=== PATIENT | female | born 1990 | race Two or more races ===

== ENCOUNTER 2024-11-22 10:34 | Outpatient (RCR) | payer MEDICAID, SELFPAY ==
--- NOTE | 2024-11-15 10:57 | XR_ITS ---
Examination: Biophysical profile, ultrasound Date and time of exam: November 15, 2024 11:00 AM Indications: Diagnosis elevated BMI, maternal obesity Technique: Multiple transabdominal sonographic images of the pelvis abdomen obtained. Attention is directed to the breathing movement, gross body movement, amniotic fluid volume and tone. Findings: Amniotic fluid index 6.8 cm Total biophysical profile is 8 of 8. breathing movement is 2. Gross body movement is 2. tone is 2. Qualitative amniotic fluid volume is 2 Impression: Biophysical profile is 8 of 8.
[2024-11-15 11:25] VITALS: BP 116/68; PULSE 81; RESP 18; TEMP 36.8
--- NOTE | 2024-11-22 10:39 | XR_ITS ---
Examination: Biophysical profile, ultrasound Date and time of exam: November 22, 2024 1107 hours INDICATIONS: Diagnosis maternal obesity Technique: Multiple transabdominal sonographic images of the pelvis abdomen obtained. Attention is directed to the breathing movement, gross body movement, amniotic fluid volume and tone. Findings: Amniotic fluid index 11.2 cm Total biophysical profile is 8 of 8. breathing movement is 2. Gross body movement is 2. tone is 2. Qualitative amniotic fluid volume is 2 Impression: Biophysical profile is 8 of 8.
[2024-11-22 11:28] VITALS: BP 116/70; PULSE 80; RESP 16; TEMP 36.7
== END 2024-11-22 23:59 | disposition home or self-care (01) ==
LOC: S4S1 10:34
PROVIDERS: PCP Family Medicine; Referring Provider Advanced Practice Midwife; Visit Provider Advanced Practice Midwife
DX: O99.213 Obesity complicating pregnancy, third trimester (principal); E66.9 Obesity, unspecified; Z3A.38 38 weeks gestation of pregnancy
CPT/HCPCS: 59025; 76819

== ENCOUNTER 2024-11-25 08:48 | Inpatient (IN) | payer MEDICAID, SELFPAY ==
[2024-11-25] VITALS (64 sets, daily range): BP systolic 94–126; BP diastolic 55–83; PULSE 77–106; RESP 18; TEMP 36.8; O2SAT 96–100; BMI 47.0
[2024-11-25 09:36] LABS: Basophils # (Auto) 0.1 Thou/mm3 (0.0-0.2); Basophils % (Auto) 1 % (0-2.5); Eosinophils # (Auto) 0.1 Thou/mm3 (0.0-0.5); Eosinophils % (Auto) 1 % (0-10); Hemoglobin 12.1 g/dL (12.0-16.0); Immature Granulocytes % (Auto) 1 % (0-0); Immature Granulocytes Auto 0.12 Thou/mm3 (0.00-0.00); Lymphocytes # (Auto) 1.3 Thou/mm3 (1.0-4.8); Lymphocytes % (Auto) 13 % (10-50); Mean Corpuscular HGB Conc 34.6 g/dl (31.0-37.0); Mean Corpuscular Hemoglobin 30.9 pg (25.0-35.0); Mean Corpuscular Volume 90 fL (80-100); Monocytes # (Auto) 0.6 Thou/mm3 (0.0-0.8); Monocytes % (Auto) 6 % (0-12); Neutrophils # (Auto) 7.6 Thou/mm3 (1.8-7.7); Neutrophils % (Auto) 78 % (37-80); Nucleated Red Blood Cell % 0 /100 WBC (0); Platelet Count 223 Thou/mm3 (140-440); RDW Standard Deviation 43.1 fL (36.4-46.3); Red Blood Count 3.91 Miln/mm3 (4.00-5.20); White Blood Count 9.8 Thou/mm3 (3.6-11.0)
--- NOTE | 2024-11-25 09:48 | ESHP_ITS ---
Documentation for date of: 11/25/24 OB Labor/Induct. HPI History of Present Illness Chief complaint: Patient presents for scheduled elective induction of labor for BMI of 46. : 2 Para: 1 Term pregnancies: 1 pregnancies: 0 Living children: 0 History of Abortions: Spontaneous and Elective: 0 History of Vaginal deliveries: 1 History of sections: No History of : No SCOOTER: 11/30/24 Gestational Age (weeks): 39 Gestational Age (days): 2 Indication for induction: other (Maternal morbid obesity with a BMI of 46) History of present illness: Patient is a very pleasant 34-year-old -0-0-1 all care with Heidy Quintero CNM present for scheduled induction of labor secondary to morbid obesity. Patient's last delivery was in 2019. She delivered vaginally. Baby weighed 7 pounds 10 ounces. She feels this baby is a little bigger. No gestational diabetes. History of Present Dating criteria: LMP confirmed by 1st trimester US Adequate Care: Yes Ultrasounds: normal mid trimester US Medical complications: other (Maternal morbid obesity history of fall with chronic back pain) Labs Maternal Blood Type: AB Pos Labs: Positive: Group Beta Strep and Negative: RPR, Hepatitis B, Rubella Titre, HIV, Chlamydia and Gonorrhea Review of Systems Constitutional Constitutional: Reports system reviewed and no additional complaints, except as documented Comments: movement no regular contractions no loss of fluid no vaginal bleeding. Patient has chronic back pain and she states her feet swell especially after her last baby. Past Medical History Past Medical History GASTROINTESTINAL: Positive Obesity (BMI of 46) MUSCULOSKELETAL: Positive Musculoskeletal Disorders (Chronic back pain after a fall) Surgical History SURGICAL: Negative Section Meds Home Medications and Allergies Home Medications ?Medication ?Instructions ?Recorded ?Confirmed ?Type vits no.130-ferrous fum 1 tab PO QDAY 5 11/25/24 History 27 mg iron-folic acid 800 mcg tablet ( Vitamin) Allergies Allergy/AdvReac Type Severity Reaction Status Date / Time No Known Allergies Allergy Verified 11/25/24 09:14 OB Exam Physical Exam Vital signs: Pulse BP 96 112/69 11/25/24 08:53 11/25/24 08:53 Routine Abdominal Exam Abdominal: Present soft Comments: Abdomen soft, obese fundal height approximately 40. EFW approximately 8 and half pounds by [facility]. Detailed Labor and Delivery Exam Dilation (cm): 1 Effacement (%): 70 Cervix position: posterior station: -3 Consistency: medium Presentation: Vertex Membranes: intact monitor accelerations: 15x15 monitor decelerations: None predatory animal exterminator variability: Moderate (11-25) Contraction frequency (min): Irregular Tachysystole: No Contraction intensity: Mild Routine Extremities Exam Comments: No edema OB Results Labs 11/25/24 09:26 Labs: Short CBC 11/25/24 Range/Units 09:26 WBC 9.8 (3.6-11.0) Thou/mm3 Hgb 12.1 (12.0-16.0) g/dL Hct 35.0 L (36.0-46.0) % Plt Count 223 (140-440) Thou/mm3 OB Assessment & Plan Assessment and Plan (1) Maternal obesity syndrome in third trimester: Status: Acute (2) Mother positive for group B Streptococcus colonization: Status: Acute Additional Plan Induction method: per misoprostol protocol Plan: induction Additional Plan Comment: P.o. Cytotec 50 now. Ampicillin protocol.
[2024-11-25 10:16] LABS: Syphilis Nonreactive (Nonreactive)
[2024-11-25] MEDS: Ampicillin Inj 2,000 MG in SODIUM CHLORIDE 0.9% (POP) 100 ML 200 MG IV (10:19)
[2024-11-25] MEDS: MISOPROSTOL 50 mCg TABLET PO ×2 (10:48→14:55)
[2024-11-25] MEDS: Ampicillin Inj 1,000 MG in SODIUM CHLORIDE 0.9% (Popper) 50 ML 50 MG IV ×3 (14:20→22:10)
--- NOTE | 2024-11-25 15:00 | PD.LDPN ---
Documentation for date of: 11/25/24 OB Labor Progress Note Pain Control Pain control: tolerating well Pelvic Exam Dilation (cm): 2-3 Effacement (%): 70 station: -3 Amniotic membrane status: Intact Contractions Monitor mode: External Contraction frequency: Irregular Contraction intensity: Mild Status status: Category l Assessment and Plan Assessment: induction ongoing Comments: Give second 50 ug PO dose of cytotec now
[2024-11-25] MEDS: OXYTOCIN in NS 30 units 30 UNIT/500 ML BAG IV (23:59)
[2024-11-26] VITALS (71 sets, daily range): BP systolic 106–157; BP diastolic 54–84; PULSE 80–164; RESP 16–18; TEMP 36.7–37; O2SAT 91–100
[2024-11-26] MEDS: Ampicillin Inj 1,000 MG in SODIUM CHLORIDE 0.9% (Popper) 50 ML 50 MG IV (03:20)
[2024-11-26] MEDS: BENZO/LANO/ALOE (Dermoplast) 60 GM CAN 1 SPRAY TOP (06:20)
[2024-11-26] MEDS: LIDOCAINE HCL 1% 20 ML VIAL INFL (06:20)
[2024-11-26] MEDS: OXYTOCIN in NS 20 units 20 UNIT/1,000 ML BAG 125 UNIT IV (06:20)
--- NOTE | 2024-11-26 07:01 | PD.LDDELS ---
Data ([place]) Data Hx Section: No Maternal Blood Type: AB Pos Rubella Titre: Positive RPR: Non-reactive Labs: Positive: Group Beta Strep and Negative: RPR, Hepatitis B, HIV, Chlamydia and Gonorrhea : 2 Para: 1 Term: 1 : 0 Livin : 0 Delivery Data ([place]) Labor Data Stimulated/Augmented: Yes Induction: Yes Method: Cytotec ROM Date: 11/26/24 ROM Time: 05:59 Length ROM (minutes): 13 Rupture Type: AROM Amniotic Fluid: Clear Delivery Data EDC: 11/30/24 Labor Onset Stage 1 Date: 11/25/24 Labor Onset Stage 1 Time: 14:54 Labor Onset Stage 2 Date: 11/26/24 Labor Onset Stage 2 Time: 06:06 Delivery Date: 11/26/24 Delivery Time: 06:12 Gestational age (weeks): 39 Gestational age (days): 2 Placenta Delivery Date: 11/26/24 Placenta Delivery Time: 06:16 Length stage 2 (minutes): 5 Length stage 3 (minutes): 2 Delivered by: Malika aJimes Delivery nurse: Elizabet Mejia Urology Teacher at delivery: No Support person(s) at delivery: FOB Other staff at delivery: 2nd Nurse Other staff at delivery: RT Other staff at delivery: Fern Adrian Delivery Method Delivery: Vaginal Delivery Type: Spontaneous Presentation: Vertex Position: OA Anesthesia Type Primary Anesthesia: Local Delivery Room Medications Other Intrapartum Medications: No Post Delivery Medications N/A: No Placenta Placenta Delivery: Spontaneous Placenta Cultures Obtained: No Placenta Sent for Examination: No Cord Sample: Cord Blood Obtained Episiotomy Episiotomy: None Lacerations #1: Perineal: 1st degree Perineal repair Sutures used for repair: 4.0 Chromic (and 2-0 Chromic) EBL Estimated blood loss (ml): 100 Umbilical Cord Umbilical Vessels: 3 Nuchal Cord: None Body Cord: None Additional Procedures Patient is a 34-year-old -0-0-1 status post vaginal delivery 6 years ago presented to labor and delivery at about 8 am 11/25/2024 for an induction of labor secondary to a elevated maternal BMI. Patient was 1 cm dilated on presentation she had 50 ug buccal Cytotec x 3 given and progressed to 7 cm dilation by approximately 5:45 in the morning on 11/26/24. AROM was performed at about 8 cm patient rapidly went on to progress to complete pushing through about 4 contractions delivering a liveborn male at 6:12 AM on 11/26/2024 note the patient was strep screen positive and had multiple doses of ampicillin prior to delivery. Seizure patient pushed approximately 5 times delivering a liveborn male in the SAL presentation no nuchal cord no meconium Apgars 8 9 weight was 7 pounds 4 ounces the placenta was complete spontaneous delivering approximately 2 minutes after the baby grossly normal. Patient sustained a deep first-degree perineal laceration repaired in a standard fashion using 2-0 and 4-0 chromic. Complications were none condition both mom and infant were in stable condition in the delivery room Complications Complications: None [place] Data ([facility]) Data [place]'s name: Cordell order: 2 Gender: Male Infant Weight Grams: 3280 1 Minute Total: 8 5 Minute Total: 9
[2024-11-26] MEDS: IBUPROFEN TAB 400 MG TABLET 800 MG PO (08:25)
[2024-11-26 14:34] LABS: Basophils % (Auto) 0 % (0-2.5); Eosinophils % (Auto) 0 % (0-10); Immature Granulocytes % (Auto) 1 % (0-0); Immature Granulocytes Auto 0.06 Thou/mm3 (0.00-0.00); Lymphocytes # (Auto) 1.4 Thou/mm3 (1.0-4.8); Lymphocytes % (Auto) 12 % (10-50); Mean Corpuscular HGB Conc 34.4 g/dl (31.0-37.0); Mean Corpuscular Hemoglobin 31.1 pg (25.0-35.0); Mean Corpuscular Volume 90 fL (80-100); Monocytes # (Auto) 0.8 Thou/mm3 (0.0-0.8); Monocytes % (Auto) 7 % (0-12); Neutrophils # (Auto) 9.2 Thou/mm3 (1.8-7.7); Neutrophils % (Auto) 80 % (37-80); Nucleated Red Blood Cell % 0 /100 WBC (0); Platelet Count 203 Thou/mm3 (140-440); Red Blood Count 3.54 Miln/mm3 (4.00-5.20); White Blood Count 11.5 Thou/mm3 (3.6-11.0)
[2024-11-26] MEDS: HYDROcodone/APAP 5/325 TABLET 1 TAB PO (15:35)
[2024-11-27] MEDS: IBUPROFEN TAB 400 MG TABLET 800 MG PO (00:56)
[2024-11-27 05:55] VITALS: BP 101/60; PULSE 82; RESP 18; TEMP 36.5; O2SAT 97
[2024-11-27 07:07] VITALS: BP 114/74; PULSE 79; RESP 16; TEMP 36.4; O2SAT 99
--- NOTE | 2024-11-27 08:43 | PD.LDDS ---
DS: Providers Provider Date of admission: 11/25/24 08:55 Primary care physician: Physician No Primary/Family Admitting Provider: Malika Jaimes MD ([facility]) Attending Provider on Admission: Malika Jaimes MD ([facility]) Consults: 11/26/24 06:46 Referral Routine Comment: Attending Provider on DC: Alberta Love MD Discharging Provider: Alberta Love MD DS: Diagnosis Discharge Diagnosis (1) Maternal obesity syndrome in third trimester: Status: Acute (2) Mother positive for group B Streptococcus colonization: Status: Acute Problem List Completed Was Problem List Reviewed/Reconciled?: Yes Summary/Hosp Course Brief History: Patient is a very pleasant 34-year-old -0-0-1 all care with Heidy Quintero CNM present for scheduled induction of labor secondary to morbid obesity. Patient's last delivery was in 2019. She delivered vaginally. Baby weighed 7 pounds 10 ounces. She feels this baby is a little bigger. No gestational diabetes. Carolina is doing well on PPD 1 s/p uncomplicated . She has had an uncomplicated course, meeting all milestones and feels ready for discharge home. She is ambulating without lightheadedness, tolerating regular diet no n/v, spontaneously voiding without issue. She has no chest pain or shortness of breath. No fevers or chills. Minimal, appropriate discomfort. Vitals normal, benign exam. Hemodynamically stable with no evidence of infection. PP Hgb 11. Status at Discharge Functional status at discharge: independent ambulation Overall status at discharge: patient is back to baseline Time Spent with Patient Time attestation: Total time spent providing and/or coordinating discharge services: Exam Vital Signs Temp Pulse Resp BP Pulse Ox O2 Del Method 97.6 F 79 16 114/74 99 Room Air 11/27/24 07:07 11/27/24 07:07 11/27/24 07:07 11/27/24 07:07 11/27/24 07:07 11/27/24 07:07 Narrative Exam General: well developed, well nourished, no acute distress, conversant Cardiac: normal heart rate Lungs: breathing without distress Abdomen: soft, post-gravid, non-tender, no rebound or guarding, Fundus firm at u-3cm. Extremities: no pain with palpation of calves, 1+ edema of BLE Discharge Plan Plan Patient Disposition: HOME (Self Care) Patient condition on transfer: Stable Prescriptions/Referrals Prescriptions/Med Rec: New ibuprofen 800 mg tablet 800 mg PO Q8H PRN (Reason: See Comments) 10 Days Qty: 30 0RF docusate sodium [Colace] 100 mg capsule 100 mg PO BID Qty: 20 0RF Continued Vitamin 27 mg iron- 800 mcg tablet 1 tab PO QDAY Referrals: No Primary/Family,Physician [Primary Care Provider] - Patient/Caregiver Discharge Instructions Discharge Activity: activity as tolerated and other Other Discharge Activity Instructions:: vaginal rest and no heavy lifting more than 10 pounds for 6 weeks Other Discharge Diet Instructions: Regular Education Materials: After a Vaginal Print Language: Slovenian Activity Restrictions/Additional Instructions: follow up in 4 weeks for visit, call clinic for appointment Stand Alone Forms: Linette Smith Info., Patient Portal Info Letter Discharge Order Discharge Orders: Discharge (Routine); Ordered 11/27/24 Ordered By: Alberta Love Planned Discharge Date 11/27/24
[2024-11-27 12:42] VITALS: BP 111/76; PULSE 72; RESP 15; TEMP 36.8; O2SAT 97
== END 2024-11-27 15:25 | disposition home or self-care (01) | DRG 560 ==
LOC: S4SX 11-26 08:24 → S4NX 11-26 09:17
PROVIDERS: Admitting Provider Obstetrics & Gynecology; Visit Provider Obstetrics & Gynecology
DX: O99.214 Obesity complicating childbirth (principal); E66.01 Morbid (severe) obesity due to excess calories; Z37.0 Single live birth; Z3A.39 39 weeks gestation of pregnancy; O99.824 Streptococcus B carrier state complicating childbirth; O70.0 First degree perineal laceration during delivery; O26.893 Other specified pregnancy related conditions, third trimester; G89.29 Other chronic pain; M54.9 Dorsalgia, unspecified; Z91.81 History of falling; O99.354 Diseases of the nervous system complicating childbirth; G40.909 Epilepsy, unspecified, not intractable, without status epilepticus
CPT/HCPCS: 36415; 59409; 85025; 86780; 86850; 86900; 86901; 94762; J0290; J2590; J3490; J7050; A9270

== ENCOUNTER 2024-12-26 01:31 | Emergency (ER) | payer MEDICAID, SELFPAY ==
[2024-12-26 01:31] VITALS: BMI 46.1
[2024-12-26 01:35] VITALS: BP 127/87; PULSE 92; RESP 17; TEMP 36.7; O2SAT 100
--- NOTE | 2024-12-26 02:11 | PD.EDABDPN ---
ED Abdominal Pain RME/HPI General Chief Complaint: Abdominal Pain Stated complaint: UPPER ABD PAIN AND BURNING FOR 30 MINUTES Time seen by provider: 12/26/24 02:06 Arrival date/time: 12/26/24 01:31 RME / HPI RME / HPI narrative: This section includes all my notes and documentations, including HPI, PE, and ED course. Perry Simon MD HPI: 34yo female with a history of appendectomy, hernia repair presents to the ED for a chief complaint of epigastric pain x 2 weeks. No radiation or migration. Patient states her pain has been intermittent, reporting it worsened tonight and woke her up from her sleep, so she came in for evaluation. She reports associated vomiting. She denies any fever, chills, dysuria or any other associated symptoms. She has not taken any pain medications at home. No other complaints reported. ROS: All negative except as documented in HPI. Physical Exam: General: Alert and oriented. Appears uncomfortable. Eyes: Conjunctivae and lids clear. ENT: No nasal congestion. Neck: Supple. Heart: RRR. Lungs: No respiratory distress. Good air movement. No rhonchi, wheezing, rales. Abdomen: Soft with upper abdominal tenderness, difficult to localize further. Legs: No clubbing, cyanosis, edema. Skin: Warm and dry. Neuro: Alert and oriented X 3. Zofran ODT 4 mg and two Tylenol #3 given prior to diagnostic tests. I reviewed all diagnostic test results. My review of the gallbladder US report is no acute findings. Blood tests unremarkable. At this point, diagnoses include stomach ulcer. She was then given famotidine and Protonix. Significant improvement noted. Recommended more outpatient workup. Based on my best medical judgment, made decision no further evaluation or treatment indicated at this time. Patient understands and agrees to the discharge instructions customized and printed, see below. Discharge instructions from Dr. Simon: ?After evaluation, your symptoms are due to stomach ulcer (see attached handout). ?To help heal the ulcer, take Omeprazole 40 mg every morning and Famotidine 40 mg at bedtime for a month. ?Zofran for nausea/vomiting. Clear liquid diet for 24 hours. Then slowly advance diet as tolerated. ?Avoid food and beverages that can trigger and worsen ulcers. See attached handout. ?See a private doctor on 12/27/2024. To make sure there is no serious intra-abdominal condition, ask for help with more investigation not available here in the ER. Such as EGD or scoping the stomach, colonoscopy or scoping the colon, and referral to see fixed wing aircraft flight engineer. ?Seek immediate medical care with worsening or with any concerns. Perry Simon MD Related Data Home Medications ?Medication ?Instructions ?Recorded ?Confirmed vits no.130-ferrous fum 1 tab PO QDAY 11/25/24 11/25/24 27 mg iron-folic acid 800 mcg tablet ( Vitamin) Previous Rx's ?Medication ?Instructions ?Recorded docusate sodium 100 mg capsule 100 mg PO BID #20 caps 11/27/24 (Colace) famotidine 40 mg tablet 40 mg PO .bedtime #30 tabs 12/26/24 omeprazole 40 mg capsule,delayed 40 mg PO QDAY #30 caps 12/26/24 release ondansetron 4 mg disintegrating 4 mg PO TID PRN nausea and 12/26/24 tablet vomiting 30 days #10 tabs Allergies Allergy/AdvReac Type Severity Reaction Status Date / Time No Known Allergies Allergy Verified 12/26/24 01:31 Review of Systems Review of Systems Systems Reviewed: All systems reviewed, normal except as documented Past Medical History Past Medical History NEUROLOGIC: Negative Neurological Disorders CARDIAC: Negative Cardiac Disorders or Congestive Heart Failure RESPIRATORY: Negative Chronic Obstructive Pulmonary Disease (COPD) GASTROINTESTINAL: Positive Obesity (BMI of 46); Negative Gastrointestinal Disorders, Hepatitis or Colorectal Cancer GENITOURINARY: Negative Genitourinary Disorders, Renal Disease or Prostate Cancer REPRODUCTIVE: Positive Previous Pregnancies; Negative Breast Cancer, Pelvic Inflammatory Disease or Testicular Cancer MUSCULOSKELETAL: Positive Musculoskeletal Disorders (Chronic back pain after a fall); Negative Bone Cancer or Carpal Tunnel Syndrome ENDOCRINE: Negative Endocrine Disorders, Diabetes Mellitus Type 1 or Diabetes Mellitus Type 2 HEMATOLOGIC: Positive Blood Disorders and Anemia (seld); Negative Leukemia, Hemophilia, Thalassemia, Sickle Cell Disease or Clotting Problems OTHER HISTORY: Positive Hospitalization; Negative Autoimmune Disease, Down Syndrome, Developmental Delay, Shingles, Falls, Blood Transfusions, Blood Transfusion Reaction, Anesthesia Reactions, Organ Transplant, Chemotherapy, Radiation Therapy, Hyperbaric Therapy, MRSA, VRSA, Vancomycin-Resistant Enterococci, Human Immunodeficiency Virus (HIV), Chicken Pox, Measles, Mumps, Rubella ([place]ian Measles), Pertussis, Clostridium Difficile, Cancer, Breast Cancer, Cervical Cancer, Colorectal Cancer, Lung Cancer, Ovarian Cancer, Prostate Cancer or Testicular Cancer Family History FAMILY HISTORY: Negative Family Psychiatric Problems, Family Respiratory Disorders, Family Cardiac Disorders, Family Gastrointestinal Problems, Family Cancer, Family Surgery or Family Anesthesia Reaction Surgical History SURGICAL: Positive Abdominal Surgery; Negative Cardiac Surgery, Endocrine Surgery, Ear Surgery, Nephrectomy, Transurethral Resection, Joint Replacement, Amputation, Open Reduction Internal Fixation, Arthroscopy, Neurologic Surgery, Brain Shunt, Mastectomy, Lumpectomy, Hysterectomy, Tubal Ligation, Section or Organ Transplant Social History SMOKING STATUS: Never smoker SECOND HAND EXPOSURE: No ED Exam Narrative Physical exam: As noted in HPI. Course Quality Measures none Orders Category Date Time Status US gall bladder Stat Exams 12/26/24 02:16 Taken Amylase Stat Lab 12/26/24 02:23 Completed Bilirubin,Direct Stat Lab 12/26/24 02:23 Completed CBC Stat Lab 12/26/24 02:23 Completed CMP [Comprehensive Metabolic Panel] Stat Lab 12/26/24 02:23 Completed HCG,Qualitative Serum Stat Lab 12/26/24 02:23 Completed Lipase Stat Lab 12/26/24 02:23 Completed Magnesium Stat Lab 12/26/24 02:23 Completed UA, C/S IF [Urinalysis, C/S if Indicated] Stat Lab 12/26/24 02:16 Stop Req ACETAMINOPHEN w/COD 300-30 [Tylenol w/Cod #3] Med 12/26/24 02:15 Discontinued 2 tab PO X1 ONE Famotidine [Pepcid] Med 12/26/24 03:24 Once 40 mg PO X1 ONE Ondansetron Odt [Zofran Odt] Med 12/26/24 02:15 Discontinued 4 mg PO X1 ONE Pantoprazole [Protonix] Med 12/26/24 03:24 Once 40 mg PO X1 ONE Vital Signs Vital signs: Vital Signs Temperature 98.1 F 12/26/24 01:35 Pulse Rate 92 12/26/24 01:35 Respiratory Rate 17 12/26/24 01:35 Blood Pressure 127/87 H 12/26/24 01:35 Pulse Oximetry (%) 100 12/26/24 01:35 Oxygen Delivery Method Room Air 12/26/24 01:35 Abdominal Pain MDM MDM Narrative MDM Narrative:: Scribe Attestation: 12/26/24 Denisse Nails am scribing for and in the presence of Dr. Simon. Patient data External records reviewed:: [facility] previous records (Per chart review, patient has no relevant previous ED visits.) Clinical information provided by:: patient Social determinants that could affect healthcare access:: none Patient has the following chronic illnesses:: none How is presenting disease/condition affected by chronic disease/condition?: no chronic disease Evaluation data The following diagnostics were reviewed and interpreted by me:: lab results and radiology exam(s) Lab and/or radiology exams considered but not ordered:: none Interpretation Summary: Normal diagnostics Medications / Prescriptions Medications or Prescriptions considered but not ordered:: none Medication administrations:: Medication Administration History Famotidine (Famotidine 20 Mg Tablet) 40 mg PO X1 ONE Stop: 12/26/24 03:25 Pantoprazole Sodium (Pantoprazole 40 Mg Tablet) 40 mg PO X1 ONE Stop: 12/26/24 03:25 Discontinued Medications Acetaminophen/Codeine Phosphate (Acetaminophen W/Cod 300-30 Tablet) 2 tab PO X1 ONE Stop: 12/26/24 02:16 Last Admin: 12/26/24 03:21 Dose: 2 tab Documented By: LEONEL Comments: late admin, pt was in [place] Ondansetron HCl (Ondansetron Odt 4 Mg Tabrap) 4 mg PO X1 ONE; Protocol Stop: 12/26/24 02:16 Last Admin: 12/26/24 03:22 Dose: 4 mg Documented By: LEONEL Comments: late admin, pt was in [place] Famotidine, Pantoprazole, Tylenol with Codeine, Zofran Consultations Consultation(s) initiated? (list below): No Diagnosis Differential diagnosis abdominal pain: acute appendicitis, calculus of kidney, constipation, diverticulitis, endometriosis, gastroenteritis, pancreatitis, small bowel obstruction and other (GERD, gastritis, PUD) Most likely diagnosis given after review of the tests above:: Stomach ulcer Admission Indicated Admission indicated?: not indicated Explain why admission is indicated or not indicated:: With significant improvement, there was no indication for admission. Admission Request Was there a request for admission?: No Disposition Plan Disposition Plan: Discharge Discharge Attestation Discharge Attestation: The patient and all family members were given an opportunity to ask questions and understood the discharge instructions. Discharge instructions specifically effects, indications for sooner follow up or return to the emergency department, and the expected course of current diagnosis. Patient condition: Stable Discharge Plan Plan Patient Disposition: HOME (Self Care) Prescriptions/Referrals Prescriptions/Med Rec: New famotidine 40 mg tablet 40 mg PO .bedtime Qty: 30 0RF omeprazole 40 mg capsule,delayed release(DR/EC) 40 mg PO QDAY Qty: 30 0RF ondansetron 4 mg tablet,disintegrating 4 mg PO TID PRN (Reason: nausea and vomiting) 30 Days Qty: 10 0RF No Action Vitamin 27 mg iron- 800 mcg tablet 1 tab PO QDAY docusate sodium [Colace] 100 mg capsule 100 mg PO BID Qty: 20 0RF Referrals: Arturo Dennis MD [Primary Care Provider] - In 1 week Problem List Clinical Impression: Stomach ulcer Patient/Caregiver Discharge Instructions Discharge Activity: activity as tolerated Education Materials: ED PEPTIC ULCER vs GASTRITIS Additional Instructions: Discharge instructions from Dr. Simon: ?After evaluation, your symptoms are due to stomach ulcer (see attached handout).? ?To help heal the ulcer, take Omeprazole 40 mg every morning and Famotidine 40 mg at bedtime for a month. ?Zofran for nausea/vomiting.? Clear liquid diet for 24 hours.? Then slowly advance diet as tolerated. ?Avoid food and beverages that can trigger and worsen ulcers.? See attached handout. ?See a private doctor on 12/27/2024. To make sure there is no serious intra-abdominal condition, ask for help with more investigation not available here in the ER.? Such as EGD or scoping the stomach, colonoscopy or scoping the colon, and referral to see fixed wing aircraft flight engineer. ?Seek immediate medical care with worsening or with any concerns. Instrucciones de monserrat del Dr. Simon: ?Despu?s de la evaluaci?n, aston s?ntomas se deben a elijah ?lcera estomacal (delaney folleto adjunto). ?Para ayudar a cicatrizar la ?lcera, tome 40 mg de omeprazol todas las ma?anas y 40 mg de famotidina antes de acostarse surendra un mes. ?Zofran para las n?useas y los v?mitos. Dieta l?quida surendra 24 horas. Luego, aumente gradualmente la dieta seg?n la tolerancia. ?Evite alimentos y bebidas que puedan desencadenar y empeorar las ?lceras. Delaney folleto adjunto. ?Consulte con un m?dico particular el 05/24/2025. Para asegurarse de que no haya elijah afecci?n intraabdominal grave, solicite ayuda con otras pruebas que no est?n disponibles en urgencias, rosanna elijah endoscopia estomacal (EGD) o elijah endoscopia g?strica, elijah colonoscopia o elijah endoscopia de colon, y la derivaci?n a un gastroenter?logo. ?Busque atenci?n m?dica inmediata si presenta empeoramiento o si tiene alguna inquietud. Print Language: Belizean Stand Alone Forms: Linette Award Info., Patient Portal Info Letter
--- NOTE | 2024-12-26 02:16 | XR_ITS ---
Examination: Abdomen sonogram, Limited Date and time of exam: December 26, 2024 0233 hrs. Indications: Upper abdominal pain beginning 2 weeks ago Technique: Real-time marr scale transabdominal sonographic images of the upper abdomen obtained. Findings: Normal gallbladder. Normal common bile duct 0.3 cm Pancreatic head 3.4 cm Liver 18.3 cm fatty infiltration mildly irregular contour Normal hepatopedal portal venous flow Patent IVC Impression: Normal gallbladder Mildly prominent pancreatic head, clinical correlation advised If pancreatitis is a clinical consideration suggest MRCP follow-up Mild hepatomegaly fatty infiltration
[2024-12-26 02:43] LABS: Basophils % (Auto) 0 % (0-2.5); Eosinophils # (Auto) 0.2 Thou/mm3 (0.0-0.5); Eosinophils % (Auto) 2 % (0-10); Hematocrit 36.5 % (36.0-46.0); Hemoglobin 12.5 g/dL (12.0-16.0); Immature Granulocytes % (Auto) 1 % (0-0); Immature Granulocytes Auto 0.05 Thou/mm3 (0.00-0.00); Lymphocytes # (Auto) 1.6 Thou/mm3 (1.0-4.8); Lymphocytes % (Auto) 17 % (10-50); Mean Corpuscular HGB Conc 34.2 g/dl (31.0-37.0); Mean Corpuscular Hemoglobin 30.2 pg (25.0-35.0); Mean Corpuscular Volume 88 fL (80-100); Monocytes # (Auto) 0.6 Thou/mm3 (0.0-0.8); Monocytes % (Auto) 7 % (0-12); Neutrophils # (Auto) 6.7 Thou/mm3 (1.8-7.7); Neutrophils % (Auto) 73 % (37-80); Nucleated Red Blood Cell % 0 /100 WBC (0); Platelet Count 250 Thou/mm3 (140-440); RDW Standard Deviation 38.5 fL (36.4-46.3); Red Blood Count 4.14 Miln/mm3 (4.00-5.20); White Blood Count 9.2 Thou/mm3 (3.6-11.0)
[2024-12-26 03:08] VITALS: BP 122/81; PULSE 92; RESP 18; TEMP 36.9; O2SAT 100
[2024-12-26 03:10] LABS: Alanine Aminotransferase 35 U/L (10-49); Albumin, Serum 4.2 gm/dL (3.5-5.0); Albumin/Globulin Ratio 1.5 (1.2-2.2); Alkaline Phosphatase 120 U/L (46-116); Amylase 44 U/L (30-118); Anion Gap 10 (7-16); Aspartate Amino Transferase 53 U/L (0-34); BUN/Creatinine Ratio 13 Ratio (12-20); Bilirubin,Direct < 0.1 mg/dL (0.0-0.3); Bilirubin,Total 0.4 mg/dL (0.3-1.2); Blood Urea Nitrogen 10 mg/dL (9-23); Calcium 9.3 mg/dL (8.3-10.6); Calcium (Corrected) 9.3 mg/dL (8.5-10.1); Carbon Dioxide 27.3 mMol/L (20.0-31.0); Chloride 104 mMol/L (98-107); Creatinine (Component) 0.8 mg/dL (0.6-1.3); Estimated Creatinine Clearance 119.1 mL/min (>60); Globulin 2.8 gm/dL (2.3-3.5); Glucose 112 mg/dL (74-106); Lipase 54 U/L (12-53); Magnesium 2.1 mg/dL (1.6-2.6); Osmolality,Calculated 281 (275-295); Potassium 3.6 mMol/L (3.4-5.1); Sodium 141 mMol/L (136-145); eGFR > 60 See Note
[2024-12-26] MEDS: ACETAMINOPHEN w/COD 300-30 TABLET 2 TAB PO (03:21)
[2024-12-26] MEDS: ONDANSETRON ODT 4 MG TABRAP PO (03:22)
[2024-12-26 03:27] LABS: HCG,Qualitative Serum Negative
[2024-12-26] MEDS: FAMOTIDINE 20 MG TABLET 40 MG PO (03:45)
[2024-12-26] MEDS: PANTOPRAZOLE 40 MG TABLET PO (03:45)
--- NOTE | 2024-12-26 04:41 | PRELIM_ITS ---
Right upper quadrant abdominal ultrasound. December 26, 2024 0233 hours Clinical history: RUQ tenderness Technique: Grayscale and color flow images of the right upper quadrant are provided. Hepatic and portal veins were also imaged with color flow images. Comparison: No prior study is available for comparison. Findings: The evaluation is limited due to large body habitus. The liver is mildly enlarged, measuring 18.3 cm and demonstrates increase in echogenicity with slightly irregular contour. Normal hepatopetal flow of portal vein is noted. No intrahepatic biliary ductal dilatation. No gallbladder calculus, wall thickening or pericholecystic fluid is demonstrated. The common bile duct is normal in caliber at 0.3 cm. The pancreatic head appears prominent, measuring 3.4 cm. The inferior vena cava is unremarkable to the extent visualized. Impression: No sonographic evidence of acute cholecystitis. Mild fatty hepatomegaly with early cirrhosis. Prominent pancreatic head; Recommend clinical and laboratory correlation and further evaluation as clinically indicated. Report Electronically Signed By: Mima Jackson 12/26/2024 4:41:28 AM [EST]
== END 2024-12-26 03:53 | disposition home or self-care (01) ==
PROVIDERS: Emergency Provider Emergency Medicine; PCP Family Medicine
DX: K25.9 Gastric ulcer, unspecified as acute or chronic, without hemorrhage or perforation (principal); Z90.49 Acquired absence of other specified parts of digestive tract
CPT/HCPCS: 36415; 76705; 80053; 81001; 82150; 82248; 83690; 83735; 84703; 85025; 99284; Q0162; A9270

== ENCOUNTER 2025-01-25 21:41 | Inpatient (IN) | payer MEDICAID, SELFPAY ==
[2025-01-25 21:59] VITALS: BP 115/71; PULSE 98; RESP 18; TEMP 36.7; O2SAT 99
--- NOTE | 2025-01-25 22:41 | PD.EDRME ---
Rapid Medical Screening Exam [facility] Arrival date/time: 01/25/25 21:41 34-year-old female presents to the emergency department with a complaint of abdominal pain with vomiting that began 2 days ago. She describes her abdominal pain as burning in her stomach. She has vomited up to 4 times today. Past medical history includes vomiting with abdominal pain she was seen for 1 month ago Chief Complaint: Abdominal Pain Vital signs: Vital Signs Temperature 98.1 F 01/25/25 21:59 Pulse Rate 98 01/25/25 21:59 Respiratory Rate 18 01/25/25 21:59 Blood Pressure 115/71 01/25/25 21:59 Pulse Oximetry (%) 99 01/25/25 21:59 Oxygen Delivery Method Room Air 01/25/25 21:59 Vital signs reviewed by provider: Yes
[2025-01-25 23:33] LABS: Basophils % (Auto) 0 % (0-2.5); Eosinophils # (Auto) 0.1 Thou/mm3 (0.0-0.5); Eosinophils % (Auto) 1 % (0-10); Hematocrit 36.4 % (36.0-46.0); Hemoglobin 12.4 g/dL (12.0-16.0); Immature Granulocytes % (Auto) 1 % (0-0); Immature Granulocytes Auto 0.06 Thou/mm3 (0.00-0.00); Lymphocytes # (Auto) 0.9 Thou/mm3 (1.0-4.8); Lymphocytes % (Auto) 8 % (10-50); Mean Corpuscular HGB Conc 34.1 g/dl (31.0-37.0); Mean Corpuscular Volume 88 fL (80-100); Monocytes # (Auto) 0.6 Thou/mm3 (0.0-0.8); Monocytes % (Auto) 5 % (0-12); Neutrophils % (Auto) 86 % (37-80); Nucleated Red Blood Cell % 0 /100 WBC (0); Platelet Count 247 Thou/mm3 (140-440); RDW Standard Deviation 40.5 fL (36.4-46.3); Red Blood Count 4.13 Miln/mm3 (4.00-5.20); White Blood Count 11.6 Thou/mm3 (3.6-11.0)
[2025-01-26] VITALS (10 sets, daily range): BP systolic 107–129; BP diastolic 68–86; PULSE 58–78; RESP 17–23; TEMP 36.6–37.2; O2SAT 93–99
[2025-01-26] LABS: Alanine Aminotransferase 100 U/L (10-49); Albumin, Serum 4.4 gm/dL (3.5-5.0); Albumin/Globulin Ratio 1.6 (1.2-2.2); Alkaline Phosphatase 169 U/L (46-116); Anion Gap 6 (7-16); Aspartate Amino Transferase 161 U/L (0-34); BUN/Creatinine Ratio 14 Ratio (12-20); Bilirubin,Total 0.6 mg/dL (0.3-1.2); Blood Urea Nitrogen 11 mg/dL (9-23); Calcium 8.9 mg/dL (8.3-10.6); Calcium (Corrected) 8.9 mg/dL (8.5-10.1); Carbon Dioxide 27.1 mMol/L (20.0-31.0); Chloride 107 mMol/L (98-107); Creatinine (Component) 0.8 mg/dL (0.6-1.3); Estimated Creatinine Clearance 177.4 mL/min (>60); Globulin 2.8 gm/dL (2.3-3.5); Glucose 116 mg/dL (74-106); Lipase > 3500 U/L (12-53); Osmolality,Calculated 279 (275-295); Potassium 3.7 mMol/L (3.4-5.1); Sodium 140 mMol/L (136-145); Total Protein 7.2 gm/dL (5.7-8.2); eGFR > 60 See Note
[2025-01-26 00:03] LABS: Collection Type, Urine Clean Catch
--- NOTE | 2025-01-26 00:13 | XR_ITS ---
Examination: CT abdomen with intravenous contrast CT pelvis with intravenous contrast 2-D coronal reconstructions 2-D sagittal reconstructions Date and time of exam:January 26, 2025 0231 hours INDICATIONS: Flank pain beginning 2 days ago. CTDI: vol (mGy) 21 DLP: (mGycm) 1345 Technique: Multiple axial sections of the abdomen and pelvis have been obtained. 64 slice high-resolution scanner used. 3 mm axial sections have been obtained, post intravenous injection 60 cc [id number] 2-D sagittal, coronal reconstructions obtained. Low dose protocols were performed. One or more of the following dose reduction techniques were used; automated exposure control, adjustment of the mA and/or KV according to patient size, use of iterative reconstruction technique. Findings: Liver is irregular in contour with fatty infiltration Spleen is not enlarged Contracted gallbladder Edema around the pancreas No renal or ureteral calculi, no hydronephrosis No bowel obstruction 3 cm fat-containing umbilical hernia Absent appendix Anteverted uterus with 20 mm right adnexal cyst Urinary bladder intact Prominent osteopenia IMPRESSION: Acute pancreatitis, no pseudocyst
[2025-01-26 00:46] LABS: Triglycerides 191 mg/dL (30-150)
--- NOTE | 2025-01-26 01:06 | XR_ITS ---
Examination: Abdomen sonogram, Limited Date and time of exam: January 26, 2025 1328 hours INDICATIONS: Epigastric pain and vomiting beginning today Technique: Real-time marr scale transabdominal sonographic images of the upper abdomen obtained. Findings: Normal gallbladder Normal common bile duct 0.3 cm Pancreatic head 2.8 cm Liver 19.3 cm lobular contour fatty infiltration Normal hepatopedal portal venous flow Patent IVC IMPRESSION: Moderate hepatomegaly, cirrhosis versus primary hepatocellular disease
--- NOTE | 2025-01-26 01:10 | EDNOTE_ITS ---
ED Abdominal Pain RME/HPI General Chief Complaint: Abdominal Pain Stated complaint: ABD PAIN Arrival date/time: 01/25/25 21:41 RME / HPI RME / HPI narrative: 01/25/25 21:41 34-year-old female presents to the emergency department with a co mplaint of abdominal pain with vomiting that began 2 days ago. She describes her abdominal pain as burning in her stomach. She has vomited up to 4 times today. Past medical history includes vomiting with abdominal pain she was seen for [address] Grace?s Main ED Evaluation: 34yo female presents to the ED for a chief complaint of epigastric pain x 2 days. Patient states the pain radiates to her RUQ, describing it as burning in nature. Patient reports associated nausea and vomiting. She denies any fever, chills, diarrhea, constipation, headache or any other associated symptoms. PSH includes appendectomy. No known allergies. Related Data Home Medications ?Medication ?Instructions ?Recorded ?Confirmed vits no.130-ferrous fum 1 tab PO QDAY 5 11/25/24 27 mg iron-folic acid 800 mcg tablet ( Vitamin) Previous Rx's ?Medication ?Instructions ?Recorded docusate sodium 100 mg capsule 100 mg PO BID #20 caps 11/27/24 (Colace) famotidine 40 mg tablet 40 mg PO .bedtime #30 tabs 0 12/26/24 omeprazole 40 mg capsule,delayed 40 mg PO QDAY #30 cap s 12/26/24 release Allergies Allergy/AdvReac Type Severity Reaction Status Date / Time No Known Allergies Allergy Verified 01/25/25 21:49 Review of Systems Review of Systems Systems Reviewed: All systems reviewed, normal except as documented Past Medical History Past Medical History NEUROLOGIC: Negative Neurological Disorders CARDIAC: Negative Cardiac Disorders or Congestive Heart Failure RESPIRATORY: Negative Chronic Obstructive Pulmonary Disease (COPD) or Asthma GASTROINTESTINAL: Positive Obesity; Negative Gastrointestinal Disorders, Hepatitis or Colorectal Cancer GENITOURINARY: Negative Genitourinary Disorders, Renal Disease or Prostate Cancer REPRODUCTIVE: Positive Previous Pregnancies; Negative Breast Cancer, Pelvic Inflammatory Disease or Testicular Cancer MUSCULOSKELETAL: Positive Musculoskeletal Disorders; Negative Bone Cancer or Carpal Tunnel Syndrome ENDOCRINE: Negative Endocrine Disorders, Diabetes Mellitus Type 1 or Diabetes Mellitus Type 2 HEMATOLOGIC: Positive Blood Disorders and Anemia (seld); Negative Leukemia, Hemophilia, Thalassemia, Sickle Cell Disease or Clotting Problems OTHER HISTORY: Positive Hospitalization; Negative Autoimmune Disease, Down Syndrome, Developmental Delay, Shingles, Falls, Blood Transfusions, Blood Transfusion Reaction, Anesthesia Reactions, Organ Transplant, Chemotherapy, Radiation Therapy, Hyperbaric Therapy, MRSA, VRSA, Vancomycin-Resistant Enterococci, Human Immunodeficiency Virus (HIV), Chicken Pox, Measles, Mumps, Rubella ([place] Measles), Pertussis, Clostridium Difficile, Cancer, Breast Cancer, Cervical Cancer, Colorectal Cancer, Lung Cancer, Ovarian Cancer, Prostate Cancer or Testicular Cancer Family History FAMILY HISTORY: Negative Family Psychiatric Problems, Family Respiratory Disorders, Family Cardiac Disorders, Family Gastrointestinal Problems, Family Cancer, Family Surgery or Family Anesthesia Reaction Surgical History SURGICAL: Positive Abdominal Surgery; Negative Cardiac Surgery, Endocrine Surgery, Ear Surgery, Nephrectomy, Transurethral Resection, Joint Replacement, Amputation, Open Reduction Internal Fixation, Arthroscopy, Neurologic Surgery, Brain Shunt, Mastectomy, Lumpectomy, Hysterectomy, Tubal Ligation, Section or Organ Transplant Social History SMOKING STATUS: Never smoker SECOND HAND EXPOSURE: No ED Exam Narrative Physical exam: GENERAL APPEARANCE: AxOx4, generally well-appearing, no acute distress. HEENT: NC, AT. MMM. EOMI, clear conjunctiva, oropharynx clear. NECK: Supple without lymphadenopathy. No stiffness or restricted ROM. HEART: Normal rate and regular rhythm, normal S1/S1, no m/r/g LUNGS: CTAB, moving air well. No crackles or wheezes are heard. ABDOMEN: Soft, epigastric pain on palpation, mild RUQ tenderness, no Queen sign, nondistended with good bowel sounds heard. BACK: No midline C/T/L spine pain or deformity, No CVAT, no obvious deformity. EXTREMITIES: Without cyanosis, clubbing or edema. MUSCULOSKELETAL: FROM of all major joints, no chest tenderness NEUROLOGICAL: Grossly nonfocal. Alert and oriented, moving all 4 extremities. CN not formally tested but appear grossly intact. Skin: Warm and dry without any rash. Course Quality Measures none Orders Category Date Time Status CT Screening NOW Care 01/26/25 00:13 Active IV [Insert IV] STAT Care 01/26/25 01:[address] abdomen pelvis w con Stat Exams 01/26/25 00:13 Ordered US gall bladder Stat Exams 01/26/25 01:06 Ordered CBC Stat Lab 01/25/25 23:05 Completed Comprehensive Metabolic Panel Stat Lab 01/25/25 23:05 Completed Lipase Stat Lab 01/25/25 23:05 Completed Triglycerides Stat Lab 01/26/25 00:13 Completed Urinalysis Stat Lab 01/25/25 23:15 Received Morphine Inj Med 01/26/25 01:10 Discontinued 8 mg IVP X1 ONE Ondansetron Odt [Zofran Odt] Med 01/25/25 22:37 Discontinued 4 mg PO X1 ONE Sodium Chloride 0.9% 1000 ml [Ns] 1,000 ml Med 01/26/25 01:10 Active IV 999 mls/hr Vital Signs Vital signs: Vital Signs Temperature 98.1 F 01/25/25 21:59 Pulse Rate 98 01/25/25 21:59 Respiratory Rate 18 01/25/25 21:59 Blood Pressure 115/71 01/25/25 21:59 Pulse Oximetry (%) 99 01/25/25 21:59 Oxygen Delivery Method Room Air 01/25/25 21:59 Abdominal Pain MDM MDM Narrative MDM Narrative:: Scribe Attestation: 01/26/25 Denisse Nails am scribing for and in the presence of Dr. Grace. Patient data External records reviewed:: [facility] previous records (Per chart review, patient was seen here on 12/26/24 for a stomach ulcer.) Clinical information provided by:: patient Social determinants that could affect healthcare access:: none Patient has the following chronic illnesses:: none How is presenting disease/condition affected by chronic disease/condition?: no chronic disease Evaluation data The following diagnostics were reviewed and interpreted by me:: lab results and radiology exam(s) Lab and/or radiology exams considered but not ordered:: none Interpretation Summary: WBC count is 11.6, LFTs are elevated, Total Bilirubin is normal, Triglycerides are 191, Lipase is greater than 3500. CT abdomen pelvis and US gallbladder are pending at the time of admission. Medications / Prescriptions Medications or Prescriptions considered but not ordered:: none Medication administrations:: Medication Administration History Sodium Chloride (Ns) 1,000 mls @ 999 mls/hr IV .Q1H1M ONE Stop: 01/26/25 02:10 Last Admin: 01/26/25 01:17 Dose: 999 mls/hr Documented By: CB Discontinued Medications Morphine Sulfate (Morphine Sulf Inj 10 Mg/Ml Vial) 8 mg IVP X1 ONE Stop: 01/26/25 01:11 Ondansetron HCl (Ondansetron Odt 4 Mg Tabrap) 4 mg PO X1 ONE; Protocol Stop: 01/25/25 22:38 see above Consultations Consultation(s) initiated? (list below): Yes Consultation #1 (Physician, Specialty, Details): Discussed case with Dr. Nunez from Hospitalist service regarding admission. Discussed patients ED course, exam findings, labs, and radiology results. The Hospitalist agrees to accept the patient for admission. Time: 01:11 Diagnosis Differential diagnosis abdominal pain: diverticulitis, gastroenteritis, pancreatitis and other (gastritits) Most likely diagnosis given after review of the tests above:: see clinical impression below Admission Indicated Admission indicated?: indicated Admission Request Was there a request for admission?: Yes Admission Attestation Admission request attestation: Discussed case with [] from Hospitalist service regarding admission. Discussed patients ED course, exam findings, labs, and radiology results. The Hospitalist [agrees,declines] to accept the patient for admission. Disposition Plan Disposition Plan: Admit Discharge Plan Plan Patient Disposition: Admit Acute Care w/in Hospital Prescriptions/Referrals Prescriptions/Med Rec: No Action Vitamin 27 mg iron- 800 mcg tablet 1 tab PO QDAY docusate sodium [Colace] 100 mg capsule 100 mg PO BID Qty: 20 0RF famotidine 40 mg tablet 40 mg PO .bedtime Qty: 30 0RF omeprazole 40 mg capsule,delayed release(DR/EC) 40 mg PO QDAY Qty: 30 0RF Referrals: No Primary/Family,Physician [Primary Care Provider] - In 1 week Problem List Clinical Impression: Pancreatitis Patient/Caregiver Discharge Instructions Print Language: Algerian Stand Alone Forms: Linette Award Info., Patient Portal Info Letter
[2025-01-26] MEDS: SODIUM CHLORIDE 0.9% 1000 ML 1,000 ML 999 ML IV ×2 (01:17→04:00)
[2025-01-26] MEDS: MORPHINE SULF INJ 10 MG/ML VIAL 8 MG IVP (01:20)
[2025-01-26] MEDS: ONDANSETRON ODT 4 MG TABRAP PO (01:21)
[2025-01-26 01:41] LABS: Bacteria,Urine 1+; Bilirubin,Urine Negative (Negative); Blood,Urine 3+ (Negative); Clarity,Urine Turbid (Clear/Hazy); Color,Urine Yellow (Lt Yel-Yel); Glucose, Urine Negative (Negative); Hyaline Casts,Urine < 1 /hpf (0-1); Ketones,Urine Negative (Negative); Leukocyte Esterase,Urine Positive (Negative); Nitrite,Urine Negative (Negative); Protein,Urine Trace (Neg - Trace); RBC,Urine 325 /hpf (0-3); Specific Gravity,Urine 1.013 (1.001-1.035); Squamous Epithelial Cell,Urine 1 /hpf (0-5); Urobilinogen,Urine Negative mg/dL (0.0-1.0); WBC,Urine 8 /hpf (0-5)
[2025-01-26 02:09] LABS: HCG,Qualitative Serum Negative
--- NOTE | 2025-01-26 03:20 | PRELIM_ITS ---
Limited right upper quadrant ultrasound. January 26, 2025 at 0128 hours Clinical history: Pancreatitis. Epigastric pain for one day, vomiting. Comparison: None. Findings: The liver is mildly enlarged, measuring 19.3 cm in length and demonstrates increased echogenicity consistent with fatty infiltration. The liver also demonstrates a slightly lobular contour. No evidence of discrete mass or intrahepatic ductal dilatation. The main portal vein is patent and demonstrates hepatopetal flow. No gallbladder calculus, wall thickening, or pericholecystic fluid is identified. The common bile duct is normal in calibre at 3 mm. The pancreas is mostly obscured due to bowel gas artifact. No free fluid is demonstrated on the submitted images. Please note, the evaluation is limited due to body habitus. Impression: No sonographic evidence of cholelithiasis, acute cholecystitis or biliary obstruction. Fatty liver changes noted. Report Electronically Signed By: Mima Jackson 01/26/2025 3:20:05 AM [EST]
--- NOTE | 2025-01-26 03:44 | PRELIM_ITS ---
CT scan of the abdomen and pelvis with intravenous contrast (axial sections with sagittal and coronal reformats) January 26, 2025 at 0231 hours Clinical History: Acute pancreatitis. Comparison: No prior study is available for comparison. Findings: Clear lung bases. The liver, gallbladder, spleen, adrenal glands unremarkable. There is prominent peripancreatic fat stranding. No fluid collection. Pancreatic enhancement is normal. No pancreatic or biliary duct dilatation. The kidneys are normal. Post appendectomy. The urinary bladder is normal. A 3.2 cm right adnexal follicle. No free intraperitoneal air or fluid. Bowel caliber is normal. The abdominal wall is unremarkable. No acute osseous process. Impression: Acute pancreatitis without fluid collection. Report Electronically Signed By: Antony Colbert 01/26/2025 3:44:05 AM [EST]
--- NOTE | 2025-01-26 04:03 | PD.HHHP ---
Documentation for date of: 01/26/25 HPI - Hospitalist History of Present Illness History of Present Illness: Abdominal pain History of present illness: A 34-year-old female presented to the ER with the chief complaint of abdominal pain. The patient described 8 weeks of intermittent epigastric pain that began during her and has continued since delivery two months ago. Today, the pain became more intense and persistent after taking her usual gastritis medication and eating a meal. She described burning epigastric pain that worsens with time and does not improve with usual treatment. She also c/o nausea, a single episode of non-bilious non-bloody vomiting, and hot flashes without measured fever. Patient denied diarrhea, chest pain, shortness of breath, or urinary symptoms. She was previously evaluated 4?5 weeks ago in the ER and diagnosed with a gastric ulcer; she was started on Pantoprazole and Ondansetron at that time. She presented today because the pain became severe and unrelenting despite medication. The patient has a history of gastric ulcer and symptomatic hypotension during . Surgical history includes appendectomy, hernia repair, and hand surgery. Current medications include Pantoprazole, Ondansetron. Social history includes no smoking, no alcohol, no drug use. She is ambulatory and lives independently. In the ER, vital signs recorded as temp 98.1 F, HR 98 bpm, RR 18, BP 115/71 mmHg. Lab revealed WBC 11.6, Hb 12.4, Plt 247, Na 140, K 3.7, BUN 11, Cr 0.8, AST 161, ALT 100, total bilirubin 0.6, lipase >3500, triglycerides 191. US showed CBD 0.[address] abdomen showed acute pancreatitis without fluid collection. Admit for further evaluation and treatment. Review of Systems Review of Systems Narrative Review of Systems: A 14 point review of systems was assessed and negative except for that per HPI Past Medical History Past Medical History NEUROLOGIC: Negative Neurological Disorders CARDIAC: Negative Cardiac Disorders or Congestive Heart Failure RESPIRATORY: Negative Chronic Obstructive Pulmonary Disease (COPD) or Asthma GASTROINTESTINAL: Positive Obesity; Negative Gastrointestinal Disorders, Hepatitis or Colorectal Cancer GENITOURINARY: Negative Genitourinary Disorders, Renal Disease or Prostate Cancer REPRODUCTIVE: Positive Previous Pregnancies; Negative Breast Cancer, Pelvic Inflammatory Disease or Testicular Cancer MUSCULOSKELETAL: Positive Musculoskeletal Disorders; Negative Bone Cancer or Carpal Tunnel Syndrome ENDOCRINE: Negative Endocrine Disorders, Diabetes Mellitus Type 1 or Diabetes Mellitus Type 2 HEMATOLOGIC: Positive Blood Disorders and Anemia (seld); Negative Leukemia, Hemophilia, Thalassemia, Sickle Cell Disease or Clotting Problems OTHER HISTORY: Positive Hospitalization; Negative Autoimmune Disease, Down Syndrome, Developmental Delay, Shingles, Falls, Blood Transfusions, Blood Transfusion Reaction, Anesthesia Reactions, Organ Transplant, Chemotherapy, Radiation Therapy, Hyperbaric Therapy, MRSA, VRSA, Vancomycin-Resistant Enterococci, Human Immunodeficiency Virus (HIV), Chicken Pox, Measles, Mumps, Rubella ([place] Measles), Pertussis, Clostridium Difficile, Cancer, Breast Cancer, Cervical Cancer, Colorectal Cancer, Lung Cancer, Ovarian Cancer, Prostate Cancer or Testicular Cancer Family History FAMILY HISTORY: Negative Family Psychiatric Problems, Family Respiratory Disorders, Family Cardiac Disorders, Family Gastrointestinal Problems, Family Cancer, Family Surgery or Family Anesthesia Reaction Surgical History SURGICAL: Positive Abdominal Surgery; Negative Cardiac Surgery, Endocrine Surgery, Ear Surgery, Nephrectomy, Transurethral Resection, Joint Replacement, Amputation, Open Reduction Internal Fixation, Arthroscopy, Neurologic Surgery, Brain Shunt, Mastectomy, Lumpectomy, Hysterectomy, Tubal Ligation, Section or Organ Transplant Social History SMOKING STATUS: Never smoker SECOND HAND EXPOSURE: No Meds Home Medications and Allergies Home Medications ?Medication ?Instructions ?Recorded ?Confirmed ?Type vits no.130-ferrous fum 1 tab PO QDAY 11/25/24 11/25/24 History 27 mg iron-folic acid 800 mcg tablet ( Vitamin) Allergies Allergy/AdvReac Type Severity Reaction Status Date / Time No Known Allergies Allergy Verified 01/25/25 21:49 Exam Vital Signs Temp Pulse Resp BP Pulse Ox O2 Del Method 98.6 F 74 20 109/71 99 Room Air 01/26/25 01:13 01/26/25 01:13 01/26/25 01:13 01/26/25 01:13 01/26/25 01:13 01/26/25 01:13 Narrative Constitutional: Female, in pain. Eyes: Extraocular movements intact. No ptosis. PERRL. Neck: Supple, trachea midline. No thyromegaly. Lungs: Clear and good breath sounds equally. No wheezing. No rhonchi. CV: S1, S2. Regular rate and rhythm. GI: Soft, tenderness around epigastric area. Musculoskeletal: No cyanosis, clubbing or edema. Neuro: No focal deficit. No sensory deficit. Alert and oriented x3. Psychiatric: No signs of depression and is nonfocal. Skin: Warm and dry. Hirsutism. Results - Hospitalist Labs Diagrams: 01/25/25 23:05 01/25/25 23:05 Labs: Short CBC 01/25/25 Range/Units 23:05 WBC 11.6 H (3.6-11.0) Thou/mm3 Hgb 12.4 (12.0-16.0) g/dL Hct 36.4 (36.0-46.0) % Plt Count 247 (140-440) Thou/mm3 BMP 01/25/25 23:05 Sodium 140 Potassium 3.7 Chloride 107 Carbon Dioxide 27.1 BUN 11 Creatinine 0.8 Glucose 116 H Calcium 8.9 Liver Function 01/25/25 Range/Units 23:05 Total Bilirubin 0.6 (0.3-1.2) mg/dL AST 161 H (0-34) U/L ALT 100 H (10-49) U/L Alkaline Phosphatase 169 H (46-116) U/L Albumin 4.4 (3.5-5.0) gm/dL Urine 01/25/25 Range/Units 23:15 Urine Color Yellow (Lt Yel-Yel) Urine Clarity Turbid A (Clear/Hazy) Urine pH 5.0 (5.0-7.0) Ur Specific [place] 1.013 (1.001-1.035) Urine Protein Trace (Neg - Trace) Urine Glucose (UA) Negative (Negative) Assessment & Plan -Hospitalist Additional Assessment #Acute Pancreatitis Assessment: Epigastric pain, nausea, vomiting; elevated lipase >3500; imaging consistent with acute pancreatitis; normal biliary tree (CBD 0.27 cm); mildly elevated triglycerides; AST/ALT elevated, from fatty liver Plan: - NPO, advance diet as tolerated based on symptom resolution - Aggressive IV hydration with lactated Ringer's solution - Monitor electrolytes, renal function, hematocrit - Pain control with IV opioids as needed - Antiemetics for nausea - No antibiotics unless signs of infection develop #Gastric Ulcer Assessment: History of ulcer Plan: - Continue Pantoprazole 40 mg IV - Avoid NSAIDs Quality Measures Quality Measures none
[2025-01-26] MEDS: RINGERS LACTATED 1000 ML 1,000 ML 200 ML IV ×4 (04:15→22:43)
[2025-01-26 04:52] LABS: Basophils % (Auto) 0 % (0-2.5); Eosinophils % (Auto) 0 % (0-10); Hematocrit 31.7 % (36.0-46.0); Hemoglobin 10.9 g/dL (12.0-16.0); Immature Granulocytes % (Auto) 0 % (0-0); Immature Granulocytes Auto 0.02 Thou/mm3 (0.00-0.00); Lymphocytes # (Auto) 1.3 Thou/mm3 (1.0-4.8); Lymphocytes % (Auto) 19 % (10-50); Mean Corpuscular HGB Conc 34.4 g/dl (31.0-37.0); Mean Corpuscular Hemoglobin 30.6 pg (25.0-35.0); Mean Corpuscular Volume 89 fL (80-100); Monocytes # (Auto) 0.5 Thou/mm3 (0.0-0.8); Monocytes % (Auto) 7 % (0-12); Neutrophils % (Auto) 74 % (37-80); Nucleated Red Blood Cell % 0 /100 WBC (0); Platelet Count 217 Thou/mm3 (140-440); Red Blood Count 3.56 Miln/mm3 (4.00-5.20); White Blood Count 6.7 Thou/mm3 (3.6-11.0)
[2025-01-26 05:12] LABS: Anion Gap 3 (7-16); BUN/Creatinine Ratio 11 Ratio (12-20); Blood Urea Nitrogen 8 mg/dL (9-23); Calcium 7.9 mg/dL (8.3-10.6); Carbon Dioxide 26.6 mMol/L (20.0-31.0); Chloride 112 mMol/L (98-107); Creatinine (Component) 0.7 mg/dL (0.6-1.3); Estimated Creatinine Clearance 202.7 mL/min (>60); Glucose 118 mg/dL (74-106); Osmolality,Calculated 282 (275-295); Potassium 4.2 mMol/L (3.4-5.1); Sodium 142 mMol/L (136-145); eGFR > 60 See Note
[2025-01-26] MEDS: MORPHINE SULF INJ 10 MG/ML VIAL 2 MG IVP ×3 (05:43→20:05)
[2025-01-26 08:53] LABS: Lipase 2252 U/L (12-53)
[2025-01-26] MEDS: ENOXAPARIN SOD INJ 40 MG/0.4 ML SYRINGE SC (11:40)
[2025-01-26] MEDS: PANTOPRAZOLE INJ 40 MG VIAL IV (11:41)
--- NOTE | 2025-01-26 13:01 | XR_ITS ---
Examination: DOUGLAS, hepatobiliary radioisotope scan Gallbladder ejection fraction study. Date and time of exam: January 26, 2025 1516 hours INDICATIONS: Abdominal pain and vomiting beginning one month ago, elevated liver function tests as well as lipase on laboratory examination this week Technique: 6.3 mCi of 99M Hepatolite administered. Serial imaging then obtained from immediate through 60 minutes. 2.3 mcg selective catheter Kinevac administered for gallbladder ejection fraction study. Findings: Radioisotope activity within the liver is reasonably homogenous. Gallbladder, common bile duct small bowel activity noted Impression: Gallbladder activity. Abnormal gallbladder ejection fraction, 17%, normal greater than 35%
[2025-01-26 14:53] LABS: HCG,Qualitative Serum Negative
--- NOTE | 2025-01-26 14:59 | PD.EVENT ---
Documentation for date of: 01/26/25 Event Note Event Note: Patient seen and evaluated this AM in ED 1. Patient states she gave about 1 month ago and has had intermittent epigastric pain radiating to her back. She endorses having postprandial pain as well. She states the pain was worse yesterday after eating beans and nopales. She endorses having fatty foods in her diet. Triglycerides are mildly elevated at 191. Gallbladder US is negative for any stones or CBD obstruction. Bilirubin WNL. LFTs mildly elevated. Patient had come a few weeks prior for similar pain. Patient currently reports some improvement of pain, worse with changes in position or movement. Continue with aggressive IV fluid hydration and pain control. Consulted GI for further recommendations regarding possible causes for pancreatitis - recommends HIDA with CCK. Will also order A1c and TSh to rule out other possible causes for hypertriglyceridemia. Will keep NPO at this time. She endorses some chills, but no fever. She has had a few episodes of diarrhea at home prior to presentation. Lipase appears to be downtrending.
[2025-01-26 15:22] LABS: Glucose Estimated Average 103 mg/dL (80-131); Hemoglobin A1C 5.2 % Hgb (4.8-6.0)
[2025-01-26 15:27] LABS: Thyroid Stimulating Hormone 2.69 uIU/mL (0.55-4.78)
[2025-01-26 16:08] LABS: Hepatitis A Antibody IgM Non Reactive (Non React); Hepatitis B Core Antibody IgM Non Reactive (Non React); Hepatitis B Surface Antigen Non Reactive (Non React); Hepatitis C Antibody Non Reactive (Non React)
--- NOTE | 2025-01-26 18:48 | ESCONSULT_ITS ---
HPI Data of Consult Requesting Physician: Lisa Sage DO Primary Care Provider: Physician No Primary/Family Consult Narrative Reason for consult: Severe abdominal pain History of present illness: 34 years old female comes in for evaluation to the hospital with severe abdominal pain Was found to have an elevated lipase at greater than 3500 which is subsequently come down to 2252 Mild abnormalities of the liver function test and total bilirubin 0.6 AST ALT 161 and 150 and alk phos of 169 Patient does not drink any alcohol Normal triglycerides level Gallbladder sono was negative for any cholelithiasis At my request a CCK HIDA scan with ejection fraction of the colon was done which shows ejection fraction of 17% of cc:: cc: Lisa Sage DO Review of Systems Review of Systems Systems Reviewed: All systems reviewed, normal except as documented Meds Home Medications and Allergies Home Medications ?Medication ?Instructions ?Recorded ?Confirmed ?Type omeprazole 40 mg capsule,delayed 40 mg PO BID 01/26/25 01/26/25 History release ondansetron HCl 4 mg tablet 4 mg PO TID PRN nausea and vomiting 01/26/25 01/26/25 History sucralfate 1 gram tablet 1 g PO BID 01/26/25 01/26/25 History Allergies Allergy/AdvReac Type Severity Reaction Status Date / Time No Known Allergies Allergy Verified 01/25/25 21:49 Exam Vital Signs Temp Pulse Resp BP Pulse Ox O2 Del Method 98.0 F 77 17 123/86 H 95 Room Air 01/26/25 17:34 01/26/25 17:34 01/26/25 17:34 01/26/25 17:34 01/26/25 17:34 01/26/25 17:34 Constitutional Comments: Alert oriented Brazilian-speaking Routine Respiratory Exam Comments: Normal to auscultation Routine Abdominal Exam Comments: Tender positive bowel sounds Results Labs 01/26/25 04:35 01/26/25 04:35 Labs: Short CBC 01/25/25 01/26/25 Range/Units 23:05 04:35 WBC 11.6 H 6.7 D (3.6-11.0) Thou/mm3 Hgb 12.4 10.9 L (12.0-16.0) g/dL Hct 36.4 31.7 L (36.0-46.0) % Plt Count 247 217 D (140-440) Thou/mm3 BMP 01/25/25 01/26/25 23:05 04:35 Sodium 140 142 Potassium 3.7 4.2 D Chloride 107 112 H Carbon Dioxide 27.1 26.6 BUN 11 8 L Creatinine 0.8 0.7 Glucose 116 H 118 H Calcium 8.9 7.9 L Liver Function 01/25/25 Range/Units 23:05 Total Bilirubin 0.6 (0.3-1.2) mg/dL AST 161 H (0-34) U/L ALT 100 H (10-49) U/L Alkaline Phosphatase 169 H (46-116) U/L Albumin 4.4 (3.5-5.0) gm/dL Urine 01/25/25 Range/Units 23:15 Urine Color Yellow (Lt Yel-Yel) Urine Clarity Turbid A (Clear/Hazy) Urine pH 5.0 (5.0-7.0) Ur Specific [place] 1.013 (1.001-1.035) Urine Protein Trace (Neg - Trace) Urine Glucose (UA) Negative (Negative) Assessment and Plan Additional Assessment & Plan Additional Plan: Acute biliary pancreatitis Plan Conservative management IV fluids N.p.o. IV Protonix Pain control Recommend surgical consultation Once the lipase comes down to normal Patient should have laparoscopic versus open cholecystectomy Thank you very much for the opportunity to participate in the care of this patient
[2025-01-27] VITALS: BP 111/81; PULSE 86; RESP 17; TEMP 37.5; O2SAT 93
[2025-01-27] MEDS: RINGERS LACTATED 1000 ML 1,000 ML 200 ML IV ×3 (03:44→14:06)
[2025-01-27 04:00] VITALS: BP 115/71; PULSE 80; RESP 18; TEMP 37.2; O2SAT 93
[2025-01-27] MEDS: MORPHINE SULF INJ 10 MG/ML VIAL 2 MG IVP (04:32)
[2025-01-27 05:25] LABS: Basophils % (Auto) 0 % (0-2.5); Eosinophils % (Auto) 0 % (0-10); Hematocrit 32.4 % (36.0-46.0); Hemoglobin 11.1 g/dL (12.0-16.0); Immature Granulocytes % (Auto) 0 % (0-0); Immature Granulocytes Auto 0.03 Thou/mm3 (0.00-0.00); Lymphocytes # (Auto) 1.2 Thou/mm3 (1.0-4.8); Lymphocytes % (Auto) 16 % (10-50); Mean Corpuscular HGB Conc 34.3 g/dl (31.0-37.0); Mean Corpuscular Hemoglobin 30.2 pg (25.0-35.0); Mean Corpuscular Volume 88 fL (80-100); Monocytes # (Auto) 0.4 Thou/mm3 (0.0-0.8); Monocytes % (Auto) 6 % (0-12); Neutrophils # (Auto) 6.1 Thou/mm3 (1.8-7.7); Neutrophils % (Auto) 78 % (37-80); Nucleated Red Blood Cell % 0 /100 WBC (0); Platelet Count 236 Thou/mm3 (140-440); RDW Standard Deviation 40.3 fL (36.4-46.3); Red Blood Count 3.68 Miln/mm3 (4.00-5.20); White Blood Count 7.8 Thou/mm3 (3.6-11.0)
[2025-01-27 05:32] LABS: Anion Gap 8 (7-16); BUN/Creatinine Ratio 9 Ratio (12-20); Blood Urea Nitrogen 6 mg/dL (9-23); Calcium 8.2 mg/dL (8.3-10.6); Carbon Dioxide 25.1 mMol/L (20.0-31.0); Chloride 108 mMol/L (98-107); Creatinine (Component) 0.7 mg/dL (0.6-1.3); Estimated Creatinine Clearance 209.2 mL/min (>60); Glucose 82 mg/dL (74-106); Osmolality,Calculated 277 (275-295); Potassium 3.5 mMol/L (3.4-5.1); Sodium 141 mMol/L (136-145); eGFR > 60 See Note
[2025-01-27] MEDS: HYOSCYAMINE SULF 0.125 MG TAB.SUBL 0.25 MG PO ×4 (07:57→21:52)
[2025-01-27] MEDS: ursodioL 300 MG CAPSULE PO (07:57)
[2025-01-27 08:00] VITALS: BP 121/71; PULSE 83; RESP 18; TEMP 36.9; O2SAT 92
[2025-01-27 08:25] LABS: Lipase 230 U/L (12-53)
[2025-01-27] MEDS: PANTOPRAZOLE INJ 40 MG VIAL IV (09:11)
[2025-01-27] MEDS: ENOXAPARIN SOD INJ 40 MG/0.4 ML SYRINGE SC (09:12)
[2025-01-27 12:00] VITALS: BP 125/84; PULSE 92; RESP 16; TEMP 37; O2SAT 95
[2025-01-27] MEDS: HYDROmorphone INJ 2 MG/ML VIAL 0.5 MG IVP ×2 (12:51→19:28)
--- NOTE | 2025-01-27 13:05 | PC.NURSE ---
Dr Charles her to see pt., no surgery at this time, will cont. to monitor.
--- NOTE | 2025-01-27 13:13 | PD.SURCONS ---
HPI Consult details Consult date: 01/27/25 Reason for consultation narrative: Patient was seen on consultation because of poor ejection fraction on the HIDA scan History of present illness: History of present illness revealed that the patient has been having epigastric pain on and off for quite some time. 2 days ago she developed pain in the epigastric region which was radiating to the back. She denies drinking any alcohol. She has had pain on lying on the right side especially after delivery of her child 2 weeks ago. She has gained some weight during the recent . She denies any history of gallbladder disease in the family. This pain is mostly in in the epigastric region and she was diagnosed with gastritis and ulcer disease for which she is taking some medications. She has undergone EGD in [place] and was told about the gastritis. Past Medical History Past Medical History NEUROLOGIC: Negative Neurological Disorders, Cerebrovascular Accident, Transient Ischemic Attacks (TIA), Dementia, Alzheimer's Disease, Parkinson's Disease, Brain Tumor, Meningitis, Seizures, Epilepsy, Multiple Sclerosis, Cerebral Palsy, Amyotrophic Lateral Sclerosis (ALS/Sandy Gehrig's), Guillain-Sodus Syndrome, Spina Bifida, Paralysis, Peripheral Neuropathy, Honeycutt's Palsy, Subdural Hematoma, Migraine, Head Trauma, Spinal Cord Injury or Traumatic Brain Injury CARDIAC: Positive Hypotension; Negative Cardiac Disorders, Myocardial Infarction, Cardiac Arrhythmia, Atrial Fibrillation, Angina, Heart Murmur, Coronary Artery Disease, Atherosclerotic Heart Disease, Peripheral Vascular Disease, Hypercholesterolemia, Aneurysm, Congestive Heart Failure, Congenital Heart Disease, Valvular Heart Disease, Rheumatic Fever, Cardiomyopathy, Pericarditis, Cellulitis, Deep Vein Thrombosis, Hypertension or Varicose Veins RESPIRATORY: Negative Respiratory Disorders, Chronic Obstructive Pulmonary Disease (COPD), Asthma, Bronchitis, Emphysema, Pneumonia, Pulmonary Fibrosis, Cystic Fibrosis, Tuberculosis, Pulmonary Embolism, Pulmonary Edema or Sleep Apnea GASTROINTESTINAL: Positive Pancreatitis, Gastrointestinal Bleed (d/t hemorroids), Ulcer (sx in 2013), Hiatal Hernia, Hemorrhoids and Obesity; Negative Gastrointestinal Disorders, Hepatitis, Cirrhosis, Celiac Disease, Gall Bladder Disease, Esophageal Varices, Lee's Esophagus, Colitis, Ulcerative Colitis, Diverticulitis, Diverticulosis, Colorectal Cancer, Crohn's Disease, Gastroesophageal Reflux Disease or Polyps GENITOURINARY: Negative Genitourinary Disorders, Chronic Kidney Disease, Renal Disease, Kidney Stones, Polycystic Kidney Disease, Neurogenic Bladder, Inguinal Hernia, Dialysis or Prostate Cancer REPRODUCTIVE: Positive Previous Pregnancies (2 pregnancies); Negative Breast Cancer, Endometriosis, Genital Herpes, Gonorrhea, Pelvic Inflammatory Disease, Syphilis, Testicular Cancer or Uterine Prolapse MUSCULOSKELETAL: Positive Musculoskeletal Disorders and Degenerative Disk Disease; Negative Muscular Dystrophy, Myasthenia Gravis, Marfan's Syndrome, Bone Cancer, Arthritis, Rheumatoid Arthritis, Osteoporosis, Gout, Scoliosis, Carpal Tunnel Syndrome, Fibromyalgia, Fractures, Degenerative Joint Disease, Osteomyelitis or Poliovirus ENT: Negative History of ENT Problems, Cataracts, Glaucoma, Blind, Retinal Detachment, Macular Degeneration, Ear Infection, Deafness, Head Trauma or Eye Prosthesis ENDOCRINE: Negative Endocrine Disorders, Diabetes Mellitus Type 1, Diabetes Mellitus Type 2, Hypoglycemia, Darlin's Syndrome, Héctor's Disease, Hyperthyroidism, Hypothyroidism, Parathyroid Disease, Pituitary Disease, Systemic Lupus Erythematosus, Syndrome of Inappropriate Antidiuretic Hormone (SIADH), Adrenal Disease or Graves' Disease HEMATOLOGIC: Positive Blood Disorders and Anemia; Negative Leukemia, Hemophilia, Thalassemia, Sickle Cell Disease or Clotting Problems PSYCHO/SOCIAL: Negative Psychiatric Problems, Schizophrenia, Recreational Drug Use, Bipolar Disorder, Depression, Anxiety, Behavior Problems, Self-Mutilation, Attention Deficit Disorder, Attention Deficit Hyperactivity Disorder, Depression, Post Traumatic Stress Disorder or Eating Disorder OTHER HISTORY: Positive Hospitalization; Negative Autoimmune Disease, Down Syndrome, Autism, Developmental Delay, Shingles, Falls, Blood Transfusions, Blood Transfusion Reaction, Anesthesia Reactions, Organ Transplant, Chemotherapy, Radiation Therapy, Hyperbaric Therapy, MRSA, VRSA, Vancomycin-Resistant Enterococci, Human Immunodeficiency Virus (HIV), Chicken Pox, Measles, Mumps, Rubella (Guamanian Measles), Pertussis, Clostridium Difficile, Cancer, Breast Cancer, Cervical Cancer, Colorectal Cancer, Lung Cancer, Ovarian Cancer, Prostate Cancer or Testicular Cancer Family History FAMILY HISTORY: Negative Family Psychiatric Problems, Family Respiratory Disorders, Family Cardiac Disorders, Family Gastrointestinal Problems, Family Genitourinary Problems, Family Endocrine Disorders, Family Reproductive Disorders, Family Musculoskeletal Disorders, Family Cancer, Family Surgery or Family Anesthesia Reaction Surgical History SURGICAL: Positive Abdominal Surgery; Negative Cardiac Surgery, Open Heart Surgery, Coronary Artery Bypass Graft, Valve Replacement, Vascular Surgery, Coronary Stent, Cardiac Catheterization, Pacemaker, Angiogram, Auto Implanted Cardiovert Defib, Carotid Endarterectomy, Endocrine Surgery, Thyroidectomy, Ear Surgery, Tympanostomy Tube, Eye Surgery, Nose Surgery, Oral Surgery, Tonsillectomy, Adenoidectomy, Cochlear Implant, Corneal Transplant, Throat Surgery, Tracheostomy, Gastric Bypass Surgery, Gastrostomy, Bowel Surgery, Nephrectomy, Bladder Sling, Ureteral Stent, Transurethral Resection, Joint Replacement, of Shoulder Sx, Amputation, Knee Sx, Hip Sx, Open Reduction Internal Fixation, Arthroscopy, of Back Surgery, Neurologic Surgery, Brain Shunt, Mastectomy, Lumpectomy, Hysterectomy, Tubal Ligation, Section, Organ Transplant or ESWL Social History SMOKING STATUS: Never smoker SECOND HAND EXPOSURE: No Meds Home Medications and Allergies Home Medications ?Medication ?Instructions ?Recorded ?Confirmed ?Type omeprazole 40 mg capsule,delayed 40 mg PO BID 01/26/25 01/26/25 History release ondansetron HCl 4 mg tablet 4 mg PO TID PRN nausea and vomiting 01/26/25 01/26/25 History sucralfate 1 gram tablet 1 g PO BID 01/26/25 01/26/25 History Allergies Allergy/AdvReac Type Severity Reaction Status Date / Time No Known Allergies Allergy Verified 01/25/25 21:49 Exam Vital Signs Temp Pulse Resp BP Pulse Ox O2 Del Method 98.6 F 92 16 125/84 95 Room Air 01/27/25 12:00 01/27/25 12:00 01/27/25 12:00 01/27/25 12:00 01/27/25 12:00 01/27/25 12:00 Narrative Exam Physical examination revealed a morbidly obese female who speaks only Albanian. She is 5 foot 1 inch tall weighing 258 pounds with BMI of more than 40 Constitutional Constitutional: mild distress Routine Abdominal Exam Comments: Examination of the abdomen showed some tenderness in the epigastric region but no pain in the right upper quadrant. Patient's abdomen is very distended because of her obesity and it was difficult to evaluate. All sounds are normoactive and she is tolerating a clear liquids Results Results: Laboratory Laboratory Narrative: Patient's laboratory workup showed that she has had elevated lipase more than 3000 and is coming towards normal values. Patient has mildly elevated transaminases with normal bilirubin Results: Imaging Imaging narrative: CT scan of the abdomen showed no evidence of todd pancreatitis but there is possibly edema around pancreas. Patient also has contracted gallbladder and the CT T scan with no stones. Ultrasound showed no evidence of cholelithiasis Assessment & Plan Additional Assessment Additional comments: Impression: I am not sure if the patient really has pancreatitis. The lipase can be elevated in many conditions and I will order for amylase to see if it is related to the pancreas. Patient cannot have gallstone pancreatitis unless she has gallstones. Her ultrasound on 2 occasions shows no stones. Moreover her pain is not typical of biliary disease. Her ejection fraction happens during the and sometimes may last even after . That itself cannot past pancreatitis I strongly feel that this patient does not require cholecystectomy at this time. I will treat her symptomatically and discharged. Thank you very much
[2025-01-27 13:50] LABS: Amylase 264 U/L (30-118)
--- NOTE | 2025-01-27 13:59 | PD.RESPRO ---
Documentation for date of: 01/27/25 Subjective Subjective Interval history: Patient was seen and examined at bedside this AM. No acute events overnight. Patient tolerating liquid diet, adequate urine output and mentation is at baseline. No N/V Lipase downtrendign 3500 -> 2252 -> 230 and Amylase 264 today HIDA showed EF 17%. GI recommends general surgery consultation Per Dr Charles, patient would not benefit from a lap cholecystectomy as no gallstones on US, pancreatitis not likely due to GB Will observe as we advance diet. Anticipate DC in 24 hours Exam Vital Signs Temp Pulse Resp BP Pulse Ox O2 Del Method 98.6 F 92 16 125/84 95 Room Air 01/27/25 12:00 01/27/25 12:00 01/27/25 12:00 01/27/25 12:00 01/27/25 12:00 01/27/25 12:00 Narrative Exam Constitutional Alert, oriented x3 and comfortable. Overweight HEENT Vision grossly intact. Patent nares. Trachea midline. Respiratory Chest normal on inspection and clear to auscultation bilaterally. Cardiovascular S1 and S2 audible, RRR. No murmurs or carotid bruit. No gross JVD. Abdominal Soft and non tender to palpation in all quadrants. Distended. BS + Genitourinary No bladder tenderness, no flank pain. Normal to palpation. Musculoskeletal Extremities tone within normal limits. No LE edema. Neurological CN II - XII grossly intact. Extremity motor and sensation grossly intact. Skin Warm, dry and intact. No apparent lesions. Psychiatric Patient has a good affect, is cooperative. Objective Labs 01/27/25 04:27 01/27/25 04:27 Labs: Laboratory Results - last 24 hr 01/26/25 01/27/25 01/27/25 04:35 04:27 04:46 WBC 7.8 RBC 3.68 L Hgb 11.1 L Hct 32.4 L MCV 88 MCH 30.2 MCHC 34.3 RDW Std Deviation 40.3 Plt Count 236 Neut % (Auto) 78 Lymph % (Auto) 16 [place] % (Auto) 6 Eos % (Auto) 0 Baso % (Auto) 0 Neut # (Auto) 6.1 Lymph # (Auto) 1.2 [place] # (Auto) 0.4 Eos # (Auto) 0.0 Baso # (Auto) 0.0 Immature Gran # (Auto) 0.03 H Absolute Nucleated RBC 0.00 Immature Gran % 0 Nucleated RBC % 0 Sodium 141 Potassium 3.5 D Chloride 108 H Carbon Dioxide 25.1 Anion Gap 8 BUN 6 L Creatinine 0.7 Estim Creat Clear Calc 209.2 eGFR > 60 BUN/Creatinine Ratio 9 L Glucose [address] Glu mg/dL 103 Hemoglobin A1c 5.2 Calculated Osmolality 277 Calcium 8.2 L Amylase 264 H Lipase 230 H D TSH 2.69 HCG, Qual Negative Hepatitis A IgM Ab Non Reactive Hep Bs Antigen Non Reactive Hep B Core IgM Ab Non Reactive Hepatitis C Antibody Non Reactive Quality Measures Quality Measures none Assessment & Plan Assessment Current Active Medications: Generic Name Dose Route Start Last Admin Trade Name Freq PRN Reason Stop Dose Admin Enoxaparin Sodium 40 mg 01/26/25 09:00 01/27/25 09:12 Enoxaparin Sod Inj 40 Mg/0.4 Ml Syringe SC 02/09/25 08:59 40 mg QDAY LACHO Administration Hydromorphone HCl 0.5 mg 01/27/25 09:56 01/27/25 12:51 Hydromorphone Inj 2 Mg/Ml Vial IVP 02/01/25 09:55 0.5 mg Q4HR PRN Administration Pain 7-10 Hyoscyamine 0.25 mg 01/27/25 07:45 01/27/25 13:43 Hyoscyamine Sulf 0.125 Mg Tab.Subl PO 02/26/25 07:44 0.25 mg Q4HR LACHO Administration Lactated Ringer's 1,000 mls @ 200 mls/hr 01/26/25 04:15 01/27/25 09:11 Lactated Ringers IV 02/25/25 04:14 200 mls/hr .Q5H LACHO Administration Ondansetron HCl 4 mg 01/26/25 04:09 Ondansetron Inj 2 Mg/Ml Inj 2 Ml IV 02/25/25 04:08 Q6HR PRN NAUSEA OR VOMITING Protocol Pantoprazole Sodium 40 mg 01/26/25 09:00 01/27/25 09:11 Pantoprazole Inj 40 Mg Vial IV 02/25/25 08:59 40 mg QDAY LACHO Administration Plan Ms Fabian is a 34 year old female admitted for acute pancreatitis. Acute Pancreatitis - resolving Transaminitis Assessment: Epigastric pain, nausea, vomiting; elevated lipase >3500; imaging consistent with acute pancreatitis; normal biliary tree (CBD 0.27 cm); mildly elevated triglycerides; AST/ALT elevated, from fatty liver - Lipase downtrendign 3500 -> 2252 -> 230 - Amylase 264 today - HIDA showed EF 17%. GI recommends general surgery consultation - GI consulted, appreciate recommendations - General surgery consulted, appreciate recommendations Plan: - Full liquid, will advance diet as tolerated based on symptom resolution - Continue additional IV hydration: lactated Ringer's @ 200cc/h - Per Dr Charles, patient would not benefit from a lap cholecystectomy as no gallstones on US - Pain control : Morphine switched to Dilaudid 0.5mg for severe pain - Hyoscyamine 0.25mg for abdominal cramping/spasms - Zofran 4mg PRN for nausea - No antibiotics unless signs of infection develop r/o Gastric Ulcer Assessment: History of ulcer - GI consulted, appreciate recommendations Plan: - Continue Pantoprazole 40 mg IV daily - Avoid NSAIDs - Patient jd benefit from EGD evaluation outpatient Health maintenance: Disposition: [facility]. Advancing diet slowly, resolving Diet: Full liquid Lines: pIVs GI Prophylaxis: Protonix 40mg qD Thrombo Prophylaxis: Lovenox 40mg SC qD Code status: FULL CODE Plan of care discussed with attending Dejon Newman M.D. PGY2 Disclaimer: Minor errors in advisory services associate may be present as this note was dictated using voice recognition software. Attending Provider Attestation/Addendum Lisa Williamson DO, attest that I was physically present for the garcia portions of the service and evaluated the patient with the resident and I reviewed and discussed the case with the resident and agree with the resident's findings and plans of care as documented above Patient seen eval this a.m. Patient underwent HIDA with CCK yesterday showing concern for biliary dyskinesia with an ejection fraction of 17%. Surgery was consulted due to this finding, but does not feel that is contributing to the pancreatitis. No surgical intervention advised at this time. Patient continues to have some epigastric pain, mostly radiating to the right upper quadrant. She denies any fevers or chills. Patient was able to tolerate some liquids, but complained of some acid reflux. Lipase has down trended significantly, but she continues to have pain. Will continue with clear liquid diet and slowly advance diet as tolerated. Will switch pain medication from morphine to Dilaudid due to concern for effects on sphincter of Oddi. Continue wtih IV fluids
--- NOTE | 2025-01-27 15:17 | PD.IMPROG ---
Documentation for date of: 01/27/25 Subjective Subjective Interval history: Lipase is down to 230 surgical consult obtained Exam Vital Signs Temp Pulse Resp BP Pulse Ox O2 Del Method 98.6 F 92 16 125/84 95 Room Air 01/27/25 12:00 01/27/25 12:00 01/27/25 12:00 01/27/25 12:00 01/27/25 12:00 01/27/25 12:00 Objective Labs 01/27/25 04:27 01/27/25 04:27 Labs: Laboratory Results - last 24 hr 01/26/25 01/27/25 01/27/25 04:35 04:27 04:46 WBC 7.8 RBC 3.68 L Hgb 11.1 L Hct 32.4 L MCV 88 MCH 30.2 MCHC 34.3 RDW Std Deviation 40.3 Plt Count 236 Neut % (Auto) 78 Lymph % (Auto) 16 [place] % (Auto) 6 Eos % (Auto) 0 Baso % (Auto) 0 Neut # (Auto) 6.1 Lymph # (Auto) 1.2 [place] # (Auto) 0.4 Eos # (Auto) 0.0 Baso # (Auto) 0.0 Immature Gran # (Auto) 0.03 H Absolute Nucleated RBC 0.00 Immature Gran % 0 Nucleated RBC % 0 Sodium 141 Potassium 3.5 D Chloride 108 H Carbon Dioxide 25.1 Anion Gap 8 BUN 6 L Creatinine 0.7 Estim Creat Clear Calc 209.2 eGFR > 60 BUN/Creatinine Ratio 9 L Glucose [address] Glu mg/dL 103 Hemoglobin A1c 5.2 Calculated Osmolality 277 Calcium 8.2 L Amylase 264 H Lipase 230 H D TSH 2.69 Hepatitis A IgM Ab Non Reactive Hep Bs Antigen Non Reactive Hep B Core IgM Ab Non Reactive Hepatitis C Antibody Non Reactive Impressions Impression: Biliary pancreatitis Plan As per surgery recommendation Assessment & Plan A&P Narrative Acute biliary pancreatitis Plan Conservative management IV fluids N.p.o. IV Protonix Pain control Recommend surgical consultation Once the lipase comes down to normal Patient should have laparoscopic versus open cholecystectomy Thank you very much for the opportunity to participate in the care of this patient Time Spent With Patient Time: Total time spent is greater than 50% in coordination of care (as documented) at patient's floor/unit and/or counseling patient:
[2025-01-27 16:00] VITALS: BP 130/80; PULSE 105; RESP 17; TEMP 36.3; O2SAT 96
[2025-01-27] MEDS: RINGERS LACTATED 1000 ML 1,000 ML 125 ML IV (18:49)
[2025-01-27 20:00] VITALS: BP 121/73; PULSE 94; RESP 18; TEMP 36.9; O2SAT 92
[2025-01-28] VITALS: BP 121/70; PULSE 81; RESP 16; TEMP 36.7; O2SAT 95
[2025-01-28] MEDS: HYOSCYAMINE SULF 0.125 MG TAB.SUBL 0.25 MG PO ×6 (03:04→21:25)
[2025-01-28] MEDS: RINGERS LACTATED 1000 ML 1,000 ML 125 ML IV ×3 (03:06→18:41)
[2025-01-28 04:00] VITALS: BP 124/79; PULSE 89; RESP 17; TEMP 37.2; O2SAT 94
[2025-01-28 05:36] LABS: Basophils % (Auto) 0 % (0-2.5); Eosinophils # (Auto) 0.1 Thou/mm3 (0.0-0.5); Eosinophils % (Auto) 2 % (0-10); Hematocrit 31.2 % (36.0-46.0); Hemoglobin 10.7 g/dL (12.0-16.0); Immature Granulocytes % (Auto) 0 % (0-0); Immature Granulocytes Auto 0.03 Thou/mm3 (0.00-0.00); Lymphocytes # (Auto) 1.2 Thou/mm3 (1.0-4.8); Lymphocytes % (Auto) 18 % (10-50); Mean Corpuscular HGB Conc 34.3 g/dl (31.0-37.0); Mean Corpuscular Hemoglobin 30.1 pg (25.0-35.0); Mean Corpuscular Volume 88 fL (80-100); Monocytes # (Auto) 0.6 Thou/mm3 (0.0-0.8); Monocytes % (Auto) 8 % (0-12); Neutrophils % (Auto) 72 % (37-80); Nucleated Red Blood Cell % 0 /100 WBC (0); Platelet Count 220 Thou/mm3 (140-440); RDW Standard Deviation 40.6 fL (36.4-46.3); Red Blood Count 3.56 Miln/mm3 (4.00-5.20); White Blood Count 6.9 Thou/mm3 (3.6-11.0)
[2025-01-28 06:03] LABS: Anion Gap 8 (7-16); BUN/Creatinine Ratio 7 Ratio (12-20); Blood Urea Nitrogen 5 mg/dL (9-23); Calcium 8.5 mg/dL (8.3-10.6); Carbon Dioxide 25.7 mMol/L (20.0-31.0); Chloride 108 mMol/L (98-107); Creatinine (Component) 0.7 mg/dL (0.6-1.3); Estimated Creatinine Clearance 209.2 mL/min (>60); Glucose 95 mg/dL (74-106); Osmolality,Calculated 280 (275-295); Potassium 3.3 mMol/L (3.4-5.1); Sodium 142 mMol/L (136-145); eGFR > 60 See Note
[2025-01-28 07:50] VITALS: BP 123/74; PULSE 76; RESP 15; TEMP 36.4; O2SAT 94
[2025-01-28] MEDS: POTASSIUM CHLORIDE 10% 20 MEQ/15 ML UDC 40 MEQ PO (08:16)
[2025-01-28] MEDS: ENOXAPARIN SOD INJ 40 MG/0.4 ML SYRINGE SC (08:17)
[2025-01-28] MEDS: PANTOPRAZOLE INJ 40 MG VIAL IV (08:17)
[2025-01-28 11:54] VITALS: BP 122/72; PULSE 82; RESP 16; TEMP 36.7; O2SAT 96
--- NOTE | 2025-01-28 12:25 | PD.RESPRO ---
Documentation for date of: 01/28/25 Subjective Subjective Interval history: 01/28/2025: No acute overnight events to report. Patient seen and examined in hospital bed reports some abdominal discomfort after she completed full liquid diet. Patient denies having any concerning cardiac symptoms at this time, denies having any chest pain, shortness of breath, palpitations or any new headaches/dizziness. In the process of advancing the patient's diet to see how much she is able to tolerate. Patient's [place]'s criteria is negative for any severe pancreatitis; moreover, general surgery does not recommend cholecystectomy at this time. Will continue to monitor the patient for any acute changes Exam Vital Signs Temp Pulse Resp BP Pulse Ox O2 Del Method 98.1 F 82 16 122/72 96 Room Air 01/28/25 11:54 01/28/25 11:54 01/28/25 11:54 01/28/25 11:54 01/28/25 11:54 01/28/25 11:54 Narrative Exam Constitutional Alert, oriented x3 and comfortable. Overweight HEENT Vision grossly intact. Patent nares. Trachea midline. Respiratory Chest normal on inspection and clear to auscultation bilaterally. Cardiovascular S1 and S2 audible, RRR. No murmurs or carotid bruit. No gross JVD. Abdominal Soft and non tender to palpation in all quadrants. Distended. BS + Genitourinary No bladder tenderness, no flank pain. Normal to palpation. Musculoskeletal Extremities tone within normal limits. No LE edema. Neurological CN II - XII grossly intact. Extremity motor and sensation grossly intact. Skin Warm, dry and intact. No apparent lesions. Psychiatric Patient has a good affect, is cooperative. Objective Labs 01/29/25 04:53 01/29/25 04:53 Labs: Laboratory Results - last 24 hr 01/27/25 01/28/25 04:46 04:23 WBC 6.9 RBC 3.56 L Hgb 10.7 L Hct 31.2 L MCV 88 MCH 30.1 MCHC 34.3 RDW Std Deviation 40.6 Plt Count 220 Neut % (Auto) 72 Lymph % (Auto) 18 [place] % (Auto) 8 Eos % (Auto) 2 Baso % (Auto) 0 Neut # (Auto) 5.0 Lymph # (Auto) 1.2 [place] # (Auto) 0.6 Eos # (Auto) 0.1 Baso # (Auto) 0.0 Immature Gran # (Auto) 0.03 H Absolute Nucleated RBC 0.00 Immature Gran % 0 Nucleated RBC % 0 Sodium 142 Potassium 3.3 L Chloride 108 H Carbon Dioxide 25.7 Anion Gap 8 BUN 5 L Creatinine 0.7 Estim Creat Clear Calc 209.2 eGFR > 60 BUN/Creatinine Ratio 7 L Glucose 95 Calculated Osmolality 280 Calcium 8.5 Amylase 264 H Quality Measures Quality Measures none Assessment & Plan Assessment Current Active Medications: Generic Name Dose Route Start Last Admin Trade Name Freq PRN Reason Stop Dose Admin Enoxaparin Sodium 40 mg 01/26/25 09:00 01/28/25 08:17 Enoxaparin Sod Inj 40 Mg/0.4 Ml Syringe SC 02/09/25 08:59 40 mg QDAY LACHO Administration Hydromorphone HCl 0.5 mg 01/27/25 09:56 01/27/25 19:28 Hydromorphone Inj 2 Mg/Ml Vial IVP 02/01/25 09:55 0.5 mg Q4HR PRN Administration Pain 7-10 Hyoscyamine 0.25 mg 01/27/25 07:45 01/28/25 09:29 Hyoscyamine Sulf 0.125 Mg Tab.Subl PO 02/26/25 07:44 0.25 mg Q4HR LACHO Administration Lactated Ringer's 1,000 mls @ 125 mls/hr 01/27/25 15:35 01/28/25 11:11 Lactated Ringers IV 02/26/25 15:34 125 mls/hr .Q8H LACHO Administration Ondansetron HCl 4 mg 01/26/25 04:09 Ondansetron Inj 2 Mg/Ml Inj 2 Ml IV 02/25/25 04:08 Q6HR PRN NAUSEA OR VOMITING Protocol Pantoprazole Sodium 40 mg 01/26/25 09:00 01/28/25 08:17 Pantoprazole Inj 40 Mg Vial IV 02/25/25 08:59 40 mg QDAY LACHO Administration Plan 34 year old female admitted for acute pancreatitis. #Acute Pancreatitis - resolving #Elevated liver enzymes #Metabolic associated steatotic liver disease #Electrolyte abnormalities Assessment: Epigastric pain, nausea, vomiting; elevated lipase >3500; imaging consistent with acute pancreatitis; normal biliary tree (CBD 0.27 cm); mildly elevated triglycerides; AST/ALT elevated, from fatty liver Lipase downtrendign 3500 -> 2252 -> 230 Amylase 264 today HIDA showed EF 17%. GI recommends general surgery consultation GI consulted, appreciate recommendations General surgery consulted, appreciate recommendations Tracy's criteria is 1, ruled out severe pancreatitis at this time Plan: Full liquid, will advance diet as tolerated based on symptom resolution Discontinue IV hydration Per Dr Chrales, patient would not benefit from a lap cholecystectomy as no gallstones on US Pain control : Morphine switched to Dilaudid 0.5mg for severe pain Hyoscyamine 0.25mg for abdominal cramping/spasms Zofran 4mg PRN for nausea No antibiotics unless signs of infection develop Replete electrolytes as necessary Encourage weight loss, PCP follow-up for NAFLD #Gastric Ulcer Assessment: History of ulcer GI consulted, appreciate recommendations Plan: Continue Pantoprazole 40 mg IV daily Avoid NSAIDs Patient jd benefit from EGD evaluation outpatient #Normocytic anemia Differentials include: Iron deficiency anemia, anemia disease, vitamin deficiency, less likely to be hemolytic anemia or bone marrow suppression Plan: Follow-up outpatient with PCP Health Maintenance: Disposition: MedSurg. Advancing diet slowly, resolving Diet: Full liquid Lines: pIVs GI Prophylaxis: Protonix 40mg qD Thrombo Prophylaxis: Lovenox 40mg SC qD Code status: FULL CODE Patient seen and assessed with attending Dr. Chu Benitez, PGY-1 Attending Provider Attestation/Addendum Lisa Williamson DO, attest that I was physically present for the garcia portions of the service and evaluated the patient with the resident and I reviewed and discussed the case with the resident and agree with the resident's findings and plans of care as documented above Patient seen and eval this a.m. She states that her pain is currently a 5 out of 10, worse after eating. She is currently tolerating her full liquid diet. Will slowly advance to dysphagia 2 in AM. If pain is better controlled and patient tolerating p.o. intake, anticipate discharge within the next 24 to 48 hours.
--- NOTE | 2025-01-28 13:35 | PD.IMPROG ---
Documentation for date of: 01/28/25 Subjective Subjective Interval history: Surgical consult read I will still recommend and that can be done electively laparoscopic cholecystectomy as no other cause has been found She definitely has pancreatitis which has resolved You can still have pancreatitis without stones in the setting of biliary pancreatitis because of the biliary sludge acting as a stone Exam Vital Signs Temp Pulse Resp BP Pulse Ox O2 Del Method 98.1 F 82 16 122/72 96 Room Air 01/28/25 11:54 01/28/25 11:54 01/28/25 11:54 01/28/25 11:54 01/28/25 11:54 01/28/25 11:54 Objective Labs 01/28/25 04:23 01/28/25 04:23 Labs: Laboratory Results - last 24 hr 01/27/25 01/28/25 04:46 04:23 WBC 6.9 RBC 3.56 L Hgb 10.7 L Hct 31.2 L MCV 88 MCH 30.1 MCHC 34.3 RDW Std Deviation 40.6 Plt Count 220 Neut % (Auto) 72 Lymph % (Auto) 18 [place] % (Auto) 8 Eos % (Auto) 2 Baso % (Auto) 0 Neut # (Auto) 5.0 Lymph # (Auto) 1.2 [place] # (Auto) 0.6 Eos # (Auto) 0.1 Baso # (Auto) 0.0 Immature Gran # (Auto) 0.03 H Absolute Nucleated RBC 0.00 Immature Gran % 0 Nucleated RBC % 0 Sodium 142 Potassium 3.3 L Chloride 108 H Carbon Dioxide 25.7 Anion Gap 8 BUN 5 L Creatinine 0.7 Estim Creat Clear Calc 209.2 eGFR > 60 BUN/Creatinine Ratio 7 L Glucose 95 Calculated Osmolality 280 Calcium 8.5 Amylase 264 H Impressions Impression: Biliary pancreatitis Still recommend laparoscopic versus open cholecystectomy either now or as an outpatient Assessment & Plan A&P Narrative Acute biliary pancreatitis Plan Conservative management IV fluids N.p.o. IV Protonix Pain control Recommend surgical consultation Once the lipase comes down to normal Patient should have laparoscopic versus open cholecystectomy Thank you very much for the opportunity to participate in the care of this patient Time Spent With Patient Time: Total time spent is greater than 50% in coordination of care (as documented) at patient's floor/unit and/or counseling patient:
[2025-01-28 16:00] VITALS: BP 115/73; PULSE 78; RESP 16; TEMP 36.9; O2SAT 97
[2025-01-28] MEDS: HYDROmorphone INJ 2 MG/ML VIAL 0.5 MG IVP (17:27)
[2025-01-28 20:00] VITALS: BP 120/78; PULSE 88; RESP 15; TEMP 36.7; O2SAT 96
[2025-01-29] VITALS: BP 119/68; PULSE 87; RESP 16; TEMP 36.2; O2SAT 94
[2025-01-29] MEDS: HYOSCYAMINE SULF 0.125 MG TAB.SUBL 0.25 MG PO ×3 (03:00→09:21)
[2025-01-29 04:00] VITALS: BP 124/77; PULSE 77; RESP 16; TEMP 37.5; O2SAT 95
[2025-01-29] MEDS: RINGERS LACTATED 1000 ML 1,000 ML 125 ML IV (04:28)
[2025-01-29 06:06] LABS: Basophils % (Auto) 0 % (0-2.5); Eosinophils # (Auto) 0.2 Thou/mm3 (0.0-0.5); Eosinophils % (Auto) 2 % (0-10); Hemoglobin 10.8 g/dL (12.0-16.0); Immature Granulocytes % (Auto) 0 % (0-0); Immature Granulocytes Auto 0.02 Thou/mm3 (0.00-0.00); Lymphocytes # (Auto) 1.4 Thou/mm3 (1.0-4.8); Lymphocytes % (Auto) 20 % (10-50); Mean Corpuscular HGB Conc 33.8 g/dl (31.0-37.0); Mean Corpuscular Hemoglobin 30.5 pg (25.0-35.0); Mean Corpuscular Volume 90 fL (80-100); Monocytes # (Auto) 0.5 Thou/mm3 (0.0-0.8); Monocytes % (Auto) 8 % (0-12); Neutrophils # (Auto) 4.9 Thou/mm3 (1.8-7.7); Neutrophils % (Auto) 69 % (37-80); Nucleated Red Blood Cell % 0 /100 WBC (0); Platelet Count 234 Thou/mm3 (140-440); RDW Standard Deviation 41.9 fL (36.4-46.3); Red Blood Count 3.54 Miln/mm3 (4.00-5.20)
[2025-01-29 06:35] LABS: Anion Gap 9 (7-16); BUN/Creatinine Ratio 9 Ratio (12-20); Blood Urea Nitrogen 6 mg/dL (9-23); Calcium 8.9 mg/dL (8.3-10.6); Carbon Dioxide 26.2 mMol/L (20.0-31.0); Chloride 107 mMol/L (98-107); Creatinine (Component) 0.7 mg/dL (0.6-1.3); Estimated Creatinine Clearance 209.2 mL/min (>60); Glucose 99 mg/dL (74-106); Osmolality,Calculated 280 (275-295); Potassium 3.6 mMol/L (3.4-5.1); Sodium 142 mMol/L (136-145); eGFR > 60 See Note
[2025-01-29 08:00] VITALS: BP 127/74; PULSE 68; RESP 18; TEMP 36.5; O2SAT 94
[2025-01-29 09:17] VITALS: BMI 46.8
[2025-01-29] MEDS: ENOXAPARIN SOD INJ 40 MG/0.4 ML SYRINGE SC (09:20)
[2025-01-29] MEDS: PANTOPRAZOLE INJ 40 MG VIAL IV (09:21)
[2025-01-29 12:00] VITALS: BP 118/79; PULSE 85; RESP 19; TEMP 36.7; O2SAT 94
--- NOTE | 2025-01-29 13:39 | ESDS_ITS ---
<Statement entered by Lisa Sage DO - 01/30/25 08:33> I, Lisa Sage DO, attest that I was physically present for the garcia portions of the service and evaluated the patient with the resident and I reviewed and discussed the case with the resident and agree with the resident's findings and plans of care as documented above Planned Discharge Date 01/29/25 DS: Providers Provider Date of admission: 01/26/25 04:01 Primary care physician: Physician No Primary/Family Admitting Provider: Sukhdeep Nunez MD Attending Provider on Admission: Lisa Sage DO Consults: 01/26/25 10:18 Consult to Gastroenterology Routine Comment: Consulting Provider: Dave Haque 01/27/25 07:28 Consult to General Surgery Routine Comment: HIDA EF <17% Consulting Provider: Cleopatra Charles Attending Provider on DC: Kp Benitez MD Discharging Provider: Kp Benitez MD DS: Diagnosis Problem List Completed Was Problem List Reviewed/Reconciled?: Yes Hospital Course Hospital Course Hospital course: 34-year-old female with past medical history of gastric ulcer and symptomatic hypotension during presenting to the ED with epigastric pain. In the ED, patient was afebrile, slightly tachycardic heart rate 98, respiratory rate 18, normotensive. Pertinent lab findings include WBC 11.6, creatinine 0.8, AST 161, ALT 100, T. bili 0.6 lipase greater than 3500, triglycerides 191, ultrasound initially showed CBD of 0.[address] abdomen confirmed acute pancreatitis without fluid collection. Patient was admitted and started on IV fluid resuscitation along with GI and surgery consultation. Gastroenterology requested a CCK HIDA which showed an ejection fraction of the gallbladder at 17%. Recommendation was that the patient see if surgical consultation laparoscopic versus open cholecystectomy. General surgery followed the patient and their impression was that the patient did not require cholecystectomy at this time and to treat the pancreatitis with current management. Patient's abdominal pain subsided throughout her hospital stay and her diet was slowly advanced as tolerated. Patient will be discharged with the following strict instructions. Please continue all home medications as prescribed Please pump and dump breast milk Follow-up with your PCP within 1 week, ask your PCP to refer you to General Surgery for possible need of cholecystectomy If your symptoms worsen or if you develop new chest pain, shortness of breath, severe abdominal pain or bleeding per rectum - please come back to the ED immediately. Hospital Diagnosis: #Acute Pancreatitis - resolved #Elevated liver enzymes #Metabolic associated steatotic liver disease #Electrolyte abnormalities #Gastric Ulcer #Normocytic anemia Kp Benitez, PGY-1 Status at Discharge Overall status at discharge: patient is progressing back to baseline Time Spent with Patient Time attestation: Total time spent providing and/or coordinating discharge services: 45 minutes Time spent: Greater than 30 minutes Exam Vital Signs Temp Pulse Resp BP Pulse Ox O2 Del Method 98.1 F 85 19 118/79 94 L Room Air 01/29/25 12:01/29/25 12:01/29/25 12:01/29/25 12:01/29/25 12:01/29/25 12:00 Narrative Exam Constitutional Alert, oriented x3 and comfortable. Overweight HEENT Vision grossly intact. Patent nares. Trachea midline. Respiratory Chest normal on inspection and clear to auscultation bilaterally. Cardiovascular S1 and S2 audible, RRR. No murmurs or carotid bruit. No gross JVD. Abdominal Soft and non tender to palpation in all quadrants. Distended. BS + Genitourinary No bladder tenderness, no flank pain. Normal to palpation. Musculoskeletal Extremities tone within normal limits. No LE edema. Neurological CN II - XII grossly intact. Extremity motor and sensation grossly intact. Skin Warm, dry and intact. No apparent lesions. Psychiatric Patient has a good affect, is cooperative. Discharge Plan Plan Patient Disposition: HOME (Self Care) Care Plan Goals: Please continue all home medications as prescribed Please pump and dump breast milk Follow-up with your PCP within 1 week, ask your PCP to refer you to General Surgery for possible need of cholecystectomy If your symptoms worsen or if you develop new chest pain, shortness of breath, severe abdominal pain or bleeding per rectum - please come back to the ED immediately. Contin?e tomando todos los medicamentos que abraham en casa seg?n lo prescrito. Extraiga y deseche la leche materna. Consulte con link m?dico de cabecera dentro de elijah semana y p?cristian que la derive a Cirug?a General por la posible necesidad de elijah colecistectom?a. Si aston s?ntomas empeoran o si presenta un nuevo dolor en el pecho, dificultad para respirar, dolor abdominal intenso o sangrado rectal, regrese a urgencias de inmediato. Prescriptions/Referrals Prescriptions/Med Rec: Continued sucralfate 1 gram tablet 1 g PO BID ondansetron HCl 4 mg tablet 4 mg PO TID PRN (Reason: nausea and vomiting) omeprazole 40 mg capsule,delayed release(DR/EC) 40 mg PO BID Referrals: [facility] [Outside] No Primary/Family,Physician [Primary Care Provider] - Patient/Caregiver Discharge Instructions Education Materials: Understanding Pancreatitis, Pancreatitis Acute Dc Print Language: Burkinan Stand Alone Forms: Linette Award Info., Patient Portal Info Letter Discharge Order Discharge Orders: Discharge (Routine); Ordered 01/29/25 Ordered By: Kp Benitez Quality Discharge Quality Measures VTE prophylaxis
[2025-01-29 15:39] VITALS: BP 116/81; PULSE 88; RESP 19; TEMP 36.4; O2SAT 96
--- NOTE | 2025-01-29 17:35 | ESPR_ITS ---
Documentation for date of: 01/29/25 Subjective Subjective Interval history: Late entry for the note Case discussed with internal medicine team Okay to discharge patient home to be followed by the PCP I still recommend that as an outpatient patient should have a laparoscopic cholecystectomy otherwise she will have a second bout of pancreatitis Exam Vital Signs Temp Pulse Resp BP Pulse Ox O2 Del Method 97.6 F 88 19 116/81 96 Room Air 01/29/25 15:39 01/29/25 15:39 01/29/25 15:39 01/29/25 15:39 01/29/25 15:39 01/29/25 15:39 Objective Labs 01/29/25 04:53 01/29/25 04:53 Labs: Laboratory Results - last 24 hr 01/29/25 04:53 WBC 7.0 RBC 3.54 L Hgb 10.8 L Hct 32.0 L MCV 90 MCH 30.5 MCHC 33.8 RDW Std Deviation 41.9 Plt Count 234 Neut % (Auto) 69 Lymph % (Auto) 20 [place] % (Auto) 8 Eos % (Auto) 2 Baso % (Auto) 0 Neut # (Auto) 4.9 Lymph # (Auto) 1.4 [place] # (Auto) 0.5 Eos # (Auto) 0.2 Baso # (Auto) 0.0 Immature Gran # (Auto) 0.02 H Absolute Nucleated RBC 0.00 Immature Gran % 0 Nucleated RBC % 0 Sodium 142 Potassium 3.6 Chloride 107 Carbon Dioxide 26.2 Anion Gap 9 BUN 6 L Creatinine 0.7 Estim Creat Clear Calc 209.2 eGFR > 60 BUN/Creatinine Ratio 9 L Glucose 99 Calculated Osmolality 280 Calcium 8.9 Impressions Impression: Biliary pancreatitis Agree with discharge planning Follow-up with the PCP Assessment & Plan A&P Narrative Acute biliary pancreatitis Plan Conservative management IV fluids N.p.o. IV Protonix Pain control Recommend surgical consultation Once the lipase comes down to normal Patient should have laparoscopic versus open cholecystectomy Thank you very much for the opportunity to participate in the care of this patient Time Spent With Patient Time: Total time spent is greater than 50% in coordination of care (as documented) at patient's floor/unit and/or counseling patient:
== END 2025-01-29 15:57 | disposition home or self-care (01) | DRG 282 ==
LOC: SERX 01-26 01:21 → SERHOLD 01-26 04:52 → S3NX 01-26 13:31
PROVIDERS: Physician Assistant; Surgery; Admitting Provider Internal Medicine; Emergency Provider Emergency Medicine; Visit Provider Internal Medicine
DX: K85.90 Acute pancreatitis without necrosis or infection, unspecified (principal); K25.9 Gastric ulcer, unspecified as acute or chronic, without hemorrhage or perforation; D64.9 Anemia, unspecified; E78.1 Pure hyperglyceridemia; K21.9 Gastro-esophageal reflux disease without esophagitis; N95.1 Menopausal and female climacteric states; R13.10 Dysphagia, unspecified; K76.0 Fatty (change of) liver, not elsewhere classified; K85.10 Biliary acute pancreatitis without necrosis or infection; Z90.49 Acquired absence of other specified parts of digestive tract
CPT/HCPCS: 36415; 74177; 76705; 78227; 80048; 80053; 80074; 81001; 82150; 83036; 83690; 84443; 84478; 84703; 85025; 87086; 96361; 96374; 96376; 99285; A4649; A9537; J1171; J1650; J2270; J2470; J2805; J7030; J7120; Q0162; Q9967; A9270

== ENCOUNTER 2025-02-06 10:12 | Outpatient (AMB) | payer MEDICAID, SELFPAY ==
[2025-02-06 10:33] VITALS: BP 110/75; PULSE 99; RESP 18; TEMP 36.4; O2SAT 97; BMI 44.3
--- NOTE | 2025-02-06 10:33 | PD.RESCLINIC ---
Vital Signs 02/06/25 10:33 Height 1.58 m Height Method Stated Weight 110.677 kg Weight Measurement Method Standing Scale BMI 44.3 BP 110/75 Blood Pressure Source Automatic Cuff Blood Pressure Location Right Upper Arm Position Sitting Respiration 18 Pulse 99 Pulse Source Monitor Temp 97.5 F Temp Source Temporal Artery Scan Pulse Oximetry (%) 97 Oxygen Delivery Method Room Air Allergies/Meds Allergies & Medications Allergies No Known Allergies Allergy (Verified 02/07/25 08:28) Medication Reconciliation omeprazole 40 mg capsule,delayed release 40 mg PO BID 01/26/25 [History Confirmed 02/07/25] ondansetron HCl 4 mg tablet 4 mg PO TID PRN nausea and vomiting 01/26/25 [History Confirmed 02/07/25] sucralfate 1 gram tablet 1 g PO BID 01/26/25 [History Confirmed 02/07/25] MA Intake Visit Data Collection New Patient or Established: Established Patient (seen at [facility] within 3 years) Seen by Clinical Staff ONLY (RN/MA): No Pain Present Currently: No Pain scale:: 0 Pain Scale Used: Friedman-[employer]uity [employer]anner Required: Yes PCP or OBGYN visit in last 3 months: Yes Hx Now: No Do You Feel Safe at Home: Yes Authorities Contacted: N/A Smoking Status Smoking Status: Never smoker Immunization / Flu Flu Vaccine in the Last 12 Months: No Flu Vaccine Exclusion Criteria: No Exclusion Criteria Past Medical History Past Medical History NEUROLOGIC: Negative Neurological Disorders, Cerebrovascular Accident, Transient Ischemic Attacks (TIA), Dementia, Alzheimer's Disease, Parkinson's Disease, Brain Tumor, Meningitis, Seizures, Epilepsy, Multiple Sclerosis, Cerebral Palsy, Amyotrophic Lateral Sclerosis (ALS/Sandy Gehrig's), Guillain-Washington Syndrome, Spina Bifida, Paralysis, Peripheral Neuropathy, Honeycutt's Palsy, Subdural Hematoma, Migraine, Head Trauma, Spinal Cord Injury or Traumatic Brain Injury CARDIAC: Positive Hypotension; Negative Cardiac Disorders, Myocardial Infarction, Cardiac Arrhythmia, Atrial Fibrillation, Angina, Heart Murmur, Coronary Artery Disease, Atherosclerotic Heart Disease, Peripheral Vascular Disease, Hypercholesterolemia, Aneurysm, Congestive Heart Failure, Congenital Heart Disease, Valvular Heart Disease, Rheumatic Fever, Cardiomyopathy, Pericarditis, Cellulitis, Deep Vein Thrombosis, Hypertension or Varicose Veins RESPIRATORY: Negative Chronic Obstructive Pulmonary Disease (COPD), Asthma, Bronchitis, Emphysema, Pneumonia, Pulmonary Fibrosis, Cystic Fibrosis, Tuberculosis, Pulmonary Embolism, Pulmonary Edema or Sleep Apnea GASTROINTESTINAL: Positive Pancreatitis, Gastrointestinal Bleed (d/t hemorroids), Ulcer (sx in 2014), Hiatal Hernia, Hemorrhoids and Obesity; Negative Gastrointestinal Disorders, Hepatitis, Cirrhosis, Celiac Disease, Gall Bladder Disease, Esophageal Varices, Lee's Esophagus, Colitis, Ulcerative Colitis, Diverticulitis, Diverticulosis, Colorectal Cancer, Crohn's Disease or Gastroesophageal Reflux Disease GENITOURINARY: Negative Genitourinary Disorders, Renal Disease, Kidney Stones, Polycystic Kidney Disease, Neurogenic Bladder, Inguinal Hernia, Dialysis or Prostate Cancer REPRODUCTIVE: Positive Previous Pregnancies (2 pregnancies); Negative Breast Cancer, Endometriosis, Genital Herpes, Gonorrhea, Pelvic Inflammatory Disease, Syphilis, Testicular Cancer or Uterine Prolapse MUSCULOSKELETAL: Positive Degenerative Disk Disease; Negative Muscular Dystrophy, Myasthenia Gravis, Marfan's Syndrome, Bone Cancer, Arthritis, Rheumatoid Arthritis, Osteoporosis, Gout, Scoliosis, Carpal Tunnel Syndrome, Fibromyalgia, Fractures, Degenerative Joint Disease, Osteomyelitis or Poliovirus ENT: Negative Cataracts, Glaucoma, Blind, Retinal Detachment, Macular Degeneration, Ear Infection, Deafness, Head Trauma or Eye Prosthesis ENDOCRINE: Negative Endocrine Disorders, Diabetes Mellitus Type 1, Diabetes Mellitus Type 2, Hypoglycemia, Darlin's Syndrome, Hockley's Disease, Hyperthyroidism, Hypothyroidism, Parathyroid Disease, Pituitary Disease, Systemic Lupus Erythematosus, Syndrome of Inappropriate Antidiuretic Hormone (SIADH), Adrenal Disease or Graves' Disease HEMATOLOGIC: Positive Blood Disorders and Anemia; Negative Leukemia, Hemophilia, Thalassemia, Sickle Cell Disease or Clotting Problems PSYCHO/SOCIAL: Negative Psychiatric Problems, Schizophrenia, Recreational Drug Use, Bipolar Disorder, Depression, Anxiety, Behavior Problems, Self-Mutilation, Attention Deficit Disorder, Attention Deficit Hyperactivity Disorder, Depression, Post Traumatic Stress Disorder or Eating Disorder OTHER HISTORY: Positive Hospitalization; Negative Down Syndrome, Autism, Developmental Delay, Shingles, Falls, Blood Transfusions, Blood Transfusion Reaction, Anesthesia Reactions, Organ Transplant, Chemotherapy, Radiation Therapy, Hyperbaric Therapy, MRSA, VRSA, Vancomycin-Resistant Enterococci, Human Immunodeficiency Virus (HIV), Chicken Pox, Measles, Mumps, Rubella ([place] Measles), Pertussis, Clostridium Difficile, Cancer, Breast Cancer, Cervical Cancer, Colorectal Cancer, Lung Cancer, Ovarian Cancer, Prostate Cancer or Testicular Cancer Family History FAMILY HISTORY: Negative Family Psychiatric Problems, Family Respiratory Disorders, Family Cardiac Disorders, Family Gastrointestinal Problems, Family Cancer, Family Surgery or Family Anesthesia Reaction Surgical History SURGICAL: Positive Abdominal Surgery; Negative Cardiac Surgery, Open Heart Surgery, Coronary Artery Bypass Graft, Valve Replacement, Vascular Surgery, Coronary Stent, Cardiac Catheterization, Pacemaker, Angiogram, Auto Implanted Cardiovert Defib, Carotid Endarterectomy, Endocrine Surgery, Thyroidectomy, Ear Surgery, Tympanostomy Tube, Eye Surgery, Nose Surgery, Oral Surgery, Tonsillectomy, Adenoidectomy, Cochlear Implant, Corneal Transplant, Throat Surgery, Tracheostomy, Gastric Bypass Surgery, Gastrostomy, Bowel Surgery, Nephrectomy, Transurethral Resection, Joint Replacement, Amputation, Open Reduction Internal Fixation, Arthroscopy, Neurologic Surgery, Brain Shunt, Mastectomy, Lumpectomy, Hysterectomy, Tubal Ligation, Section or Organ Transplant Social History SMOKING STATUS: Smoking status: Never smoker SECOND HAND EXPOSURE: second hand exposure: No ALCOHOL: Alcohol Intake: Never HOUSING: Housing: House LIVES WITH: Lives With: Spouse Patient Portal [employer] Social History Living Situation History Housing: House Tobacco History Smoking Status: Never smoker Second Hand Smoke Exposure: No Alcohol History Alcohol Intake: Never Domestic Abuse History Do You Feel Safe at Home: Yes Review of Systems Report any current symptoms Only answer those that you have currently: Past Medical History Past Medical History Have you ever been diagnosed with any of the following: Neurological Problems Cerebrovascular Accident (CVA): No Transient Ischemic Attacks (TIA): No Dementia: No Alzheimer's Disease: No Parkinson's Disease: No Brain Tumor: No Meningitis: No Seizures: No Epilepsy: No Multiple Sclerosis: No Cerebral Palsy: No Amyotrophic Lateral Sclerosis (ALS/Sandy Gehrig's): No Guillain-Washington Syndrome: No Spina Bifida: No Paralysis: No Peripheral Neuropathy: No Honeycutt's Palsy: No Subdural Hematoma: No Migraine: No Head Trauma: No Spinal Cord Injury: No Traumatic Brain Injury: No Cardiology Problems Myocardial Infarction: No Cardiac Arrhythmia: No Atrial Fibrillation: No Angina: No Heart Murmur: No Coronary Artery Disease: No Atherosclerotic Heart Disease: No Peripheral Vascular Disease: No Hypercholesterolemia: No Aneurysm: No Congestive Heart Failure: No Congenital Heart Disease: No Valvular Heart Disease: No Rheumatic Fever: No Cardiomyopathy: No Pericarditis: No Cellulitis: No Deep Vein Thrombosis: No Hypertension: No Hypotension: Yes Varicose Veins: No Respiratory Problems Chronic Obstructive Pulmonary Disease (COPD): No Asthma: No Bronchitis: No Emphysema: No Pneumonia: No Pulmonary Fibrosis: No Tuberculosis: No Pulmonary Embolism: No Pulmonary Edema: No Sleep Apnea: No Stomache/Intestinal Problems Hepatitis: No Cirrhosis: No Pancreatitis: Yes Celiac Disease: No Gall Bladder Disease: No Gastrointestinal Bleed: Yes (d/t hemorroids) Esophageal Varices: No Lee's Esophagus: No Colitis: No Ulcerative Colitis: No Diverticulitis: No Diverticulosis: No Ulcer: Yes (sx in 2013) Colorectal Cancer: No Crohn's Disease: No Hiatal Hernia: Yes Hemorrhoids: Yes Gastroesophageal Reflux Disease: No Obesity: Yes Genital/Urinary Problems Renal Disease: No Kidney Stones: No Polycystic Kidney Disease: No Neurogenic Bladder: No Inguinal Hernia: No Dialysis: No Reproductive Problems Breast Cancer: No Endometriosis: No Genital Herpes: No Gonorrhea: No Pelvic Inflammatory Disease: No Previous Pregnancies: Yes (2 pregnancies) Syphilis: No Uterine Prolapse: No Musculoskeletal Problems Muscular Dystrophy: No Myasthenia Gravis: No Marfan's Syndrome: No Bone Cancer: No Arthritis: No Rheumatoid Arthritis: No Osteoporosis: No Degenerative Disk Disease: Yes Gout: No Scoliosis: No Carpal Tunnel Syndrome: No Fibromyalgia: No Fractures: No Degenerative Joint Disease: No Osteomyelitis: No Poliovirus: No Head,Eye,Nose,Throat Problems Cataracts: No Glaucoma: No Blind: No Retinal Detachment: No Macular Degeneration: No Chronic Ear Infections: No Deafness: No Eye Prosthesis: No Endocrine Problems Diabetes Mellitus Type 1: No Diabetes Mellitus Type 2: No Hypoglycemia: No Darlin's Syndrome: No Hockley's Disease: No Hyperthyroidism: No Hypothyroidism: No Parathyroid Disease: No Pituitary Disease: No Systemic Lupus Erythematosus: No Syndrome of Inappropriate Antidiuretic Hormone: No Adrenal Disease: No Graves' Disease: No Blood Problems Anemia: Yes Leukemia: No Hemophilia: No Thalassemia: No Sickle Cell Disease: No Clotting Problems: No Psychologic Problems Schizophrenia: No Recreational Drug Use: No Bipolar Disorder: No Depression: No Anxiety: No Behavior Problems: No Self-Mutilation: No Attention Deficit Disorder: No Attention Deficit Hyperactivity Disorder: No Depression: No Post Traumatic Stress Disorder: No Eating Disorder: No Other Problems Hospitalization: Yes Down Syndrome: No Autism: No Developmental Delay: No Shingles: No Falls: No Blood Transfusions: No Blood Transfusion Reaction: No Anesthesia Reactions: No Organ Transplant: No Chemotherapy: No Radiation Therapy: No Hyperbaric Therapy: No MRSA: No VRSA: No Vancomycin-Resistant Enterococci: No Human Immunodeficiency Virus (HIV): No Chicken Pox: No Measles: No Mumps: No Rubella ([place] Measles): No Pertussis: No Clostridium Difficile: No Cancer: No Cervical Cancer: No Lung Cancer: No Ovarian Cancer: No Surgical History Carotid Endarterectomy: No Coronary Artery Bypass Graft: No Valve Replacement: No Hysterectomy: No Pacemaker: No Thyroidectomy: No History of Present Illness HPI Narrative 34-year-old female with past medical history of gastric ulcer and symptomatic hypotension during presenting to the [facility] for follow-up after hospital discharge for acute idiopathic pancreatitis. Patient denies any concerning symptoms at this time. On exam patient does have mild RLQ tenderness on deep palpation, otherwise exam is unremarkable. Patient continues to take protonix and sucralfate for PUD without any new symptoms. Patient does not have estbalished PCP as such will reorder labs and complete annual physical in two weeks. Will continue to monitor the patient's abdominal discomfort and refer to GI if she has reemergent abdominal pain or discomfort. Objective/Exam Narrative Physical exam: Physical Exam: GENERAL: Awake, answering questions appropriately, appears stated age, obese HEENT: NC/AT. Moist mucosa. PERRLA/EOMI. CARDIO: Heart RRR, no obvious murmurs, no JVD. PULM: No coughing or visible SOB. Lungs CTA B/L. GI: Abdomen soft, mild tenderness on RLQ without guarding or rebound tenderness. Borborygmi apparent SKIN/MSK/EXT: No wounds/discoloration/rashes/edema/amputations noted. NEURO: Oriented x3, Moves extremities x4, no focal neurological deficits noted. Assessment & Plan Diagnosis / Problem List (1) Morbid obesity: Status: Acute Assessment & Plan: Patient presenting with BMI of 44.3 Delivery in November 2024 Counciled on diet and exercise after Patient will follow-up in two weeks with repeat labs and annual physical Plan: Ordered CBC w/diff, CMP, Liver panel, TSH, Vit D and urinalysis (2) Peptic ulcer disease: Status: Acute Assessment & Plan: Known history of PUD on omeprazole 40mg qday and sucralfate Patient denies any PUD symptoms at this time Plan: Will refill medicatins if needed, patients states she has refills If symptoms re-emerge will refer to GI specialist on next visit (3) Biliary dyskinesia: Status: Acute Assessment & Plan: During workup in the hospital, found to have low EF on HIDA Abnormal gallbladder ejection fraction, 17%, normal greater than 35% General Surgery did not believe this to be the cause of pancreatitis; no need for surgery Plan: Will continue to monitor; patient does have some mild RLQ pain which can be referred pain 2/2 to dyskinesia Will monitor on next visit Office Procedures [facility] Level of Care Nursing/Assessment Patient Status: Established Patient Nursing Assessment/Reassessment: Medication Reconciliation, Update PMH in EMR and Vital Signs Coordination of Care: Complex Care and Chronic Disease 1-5, Consent,records obtained, informed consent, Education Simp Pt/Fam and Staff clarify orders Established Patient Charge Established Patient Point Assignment: 85 Established Patient Point Charge: Level 3 (80-115)
== END 2025-02-06 10:53 | disposition home or self-care (01) ==
LOC: HODAHC 10:12
PROVIDERS: Supervising Provider Internal Medicine
DX: K82.8 Other specified diseases of gallbladder (principal); E66.01 Morbid (severe) obesity due to excess calories; Z68.41 Body mass index [BMI] 40.0-44.9, adult; Z87.11 Personal history of peptic ulcer disease
CPT/HCPCS: 99213; G0463

== ENCOUNTER 2025-02-20 10:35 | Outpatient (AMB) | payer MEDICAID, SELFPAY ==
--- NOTE | 2025-02-20 10:56 | ACNOTE_ITS ---
Vital Signs 02/21/25 10:34 Height 1.58 m Height Method Stated Weight 111.13 kg Weight Measurement Method Standing Scale BMI 44.5 BP 104/69 Blood Pressure Source Automatic Cuff Blood Pressure Location Right Upper Arm Position Sitting Respiration 18 Pulse 86 Pulse Source Monitor Temp 98.2 F Temp Source Temporal Artery Scan Pulse Oximetry (%) 98 Oxygen Delivery Method Room Air Allergies/Meds Allergies & Medications Allergies No Known Allergies Allergy (Verified 02/21/25 10:35) Medication Reconciliation omeprazole 40 mg capsule,delayed release 40 mg PO BID 01/26/25 [History Confirmed 02/21/25] ondansetron HCl 4 mg tablet 4 mg PO TID PRN nausea and vomiting 01/26/25 [History Confirmed 02/21/25] sucralfate 1 gram tablet 1 g PO BID 01/26/25 [History Confirmed 02/21/25] MA Intake Visit Data Collection New Patient or Established: Established Patient (seen at [facility] within 3 years) Seen by Clinical Staff ONLY (RN/MA): No Pain Present Currently: No Pain scale:: 0 Pain Scale Used: Friedman-Fields/[employer] Underwriting Assistant Required: No PCP or OBGYN visit in last 3 months: Yes Hx Now: No Do You Feel Safe at Home: Yes Authorities Contacted: N/A Smoking Status Smoking Status: Never smoker Immunization / Flu Flu Vaccine in the Last 12 Months: No Flu Vaccine Exclusion Criteria: Refused by Patient Past Medical History Past Medical History NEUROLOGIC: Negative Neurological Disorders, Cerebrovascular Accident, Transient Ischemic Attacks (TIA), Dementia, Alzheimer's Disease, Parkinson's Disease, Brain Tumor, Meningitis, Seizures, Epilepsy, Multiple Sclerosis, Cerebral Palsy, Amyotrophic Lateral Sclerosis (ALS/Sandy Gehrig's), Guillain-[place] Syndrome, Spina Bifida, Paralysis, Peripheral Neuropathy, Honeycutt's Palsy, Subdural Hematoma, Migraine, Head Trauma, Spinal Cord Injury or Traumatic Brain Injury CARDIAC: Positive Hypotension; Negative Cardiac Disorders, Myocardial Infarction, Cardiac Arrhythmia, Atrial Fibrillation, Angina, Heart Murmur, Coronary Artery Disease, Atherosclerotic Heart Disease, Peripheral Vascular Disease, Hypercholesterolemia, Aneurysm, Congestive Heart Failure, Congenital Heart Disease, Valvular Heart Disease, Rheumatic Fever, Cardiomyopathy, Pericarditis, Cellulitis, Deep Vein Thrombosis, Hypertension or Varicose Veins RESPIRATORY: Negative Chronic Obstructive Pulmonary Disease (COPD), Asthma, Bronchitis, Emphysema, Pneumonia, Pulmonary Fibrosis, Cystic Fibrosis, Tuberculosis, Pulmonary Embolism, Pulmonary Edema or Sleep Apnea GASTROINTESTINAL: Positive Pancreatitis, Gastrointestinal Bleed (d/t hemorroids), Ulcer (sx in 2013), Hiatal Hernia, Hemorrhoids and Obesity; Negative Gastrointestinal Disorders, Hepatitis, Cirrhosis, Celiac Disease, Gall Bladder Disease, Esophageal Varices, Lee's Esophagus, Colitis, Ulcerative Colitis, Diverticulitis, Diverticulosis, Colorectal Cancer, Crohn's Disease or Gastroesophageal Reflux Disease GENITOURINARY: Negative Genitourinary Disorders, Renal Disease, Kidney Stones, Polycystic Kidney Disease, Neurogenic Bladder, Inguinal Hernia, Dialysis or Prostate Cancer REPRODUCTIVE: Positive Previous Pregnancies (2 pregnancies); Negative Breast Cancer, Endometriosis, Genital Herpes, Gonorrhea, Pelvic Inflammatory Disease, Syphilis, Testicular Cancer or Uterine Prolapse MUSCULOSKELETAL: Positive Degenerative Disk Disease; Negative Muscular Dystrophy, Myasthenia Gravis, Marfan's Syndrome, Bone Cancer, Arthritis, Rheumatoid Arthritis, Osteoporosis, Gout, Scoliosis, Carpal Tunnel Syndrome, Fibromyalgia, Fractures, Degenerative Joint Disease, Osteomyelitis or Poliovirus ENT: Negative Cataracts, Glaucoma, Blind, Retinal Detachment, Macular Degeneration, Ear Infection, Deafness, Head Trauma or Eye Prosthesis ENDOCRINE: Negative Endocrine Disorders, Diabetes Mellitus Type 1, Diabetes Mellitus Type 2, Hypoglycemia, Darlin's Syndrome, Héctor's Disease, Hyperthyroidism, Hypothyroidism, Parathyroid Disease, Pituitary Disease, Systemi c Lupus Erythematosus, Syndrome of Inappropriate Antidiuretic Hormone (SIADH), Adrenal Disease or Graves' Disease HEMATOLOGIC: Positive Blood Disorders and Anemia; Negative Leukemia, Hemophilia, Thalassemia, Sickle Cell Disease or Clotting Problems PSYCHO/SOCIAL: Negative Psychiatric Problems, Schizophrenia, Recreational Drug Use, Bipolar Disorder, Depression, Anxiety, Behavior Problems, Self-Mutilation, Attention Deficit Disorder, Attention Deficit Hyperactivity Disorder, Depression, Post Traumatic Stress Disorder or Eating Disorder OTHER HISTORY: Positive Hospitalization; Negative Down Syndrome, Autism, Developmental Delay, Shingles, Falls, Blood Transfusions, Blood Transfusion Reaction, Anesthesia Reactions, Organ Transplant, Chemotherapy, Radiation Therapy, Hyperbaric Therapy, MRSA, VRSA, Vancomycin-Resistant Enterococci, Human Immunodeficiency Virus (HIV), Chicken Pox, Measles, Mumps, Rubella (Arabic Measles), Pertussis, Clostridium Difficile, Cancer, Breast Cancer, Cervical Cancer, Colorectal Cancer, Lung Cancer, Ovarian Cancer, Prostate Cancer or Testicular Cancer Family History FAMILY HISTORY: Negative Family Psychiatric Problems, Family Respiratory Disorders, Family Cardiac Disorders, Family Gastrointestinal Problems, Family Cancer, Family Surgery or Family Anesthesia Reaction Surgical History SURGICAL: Positive Abdominal Surgery; Negative Cardiac Surgery, Open Heart Surgery, Coronary Artery Bypass Graft, Valve Replacement, Vascular Surgery, Coronary Stent, Cardiac Catheterization, Pacemaker, Angiogram, Auto Implanted Cardiovert Defib, Carotid Endarterectomy, Endocrine Surgery, Thyroidectomy, Ear Surgery, Tympanostomy Tube, Eye Surgery, Nose Surgery, Oral Surgery, Tonsillectomy, Adenoidectomy, Cochlear Implant, Corneal Transplant, Throat Surgery, Tracheostomy, Gastric Bypass Surgery, Gastrostomy, Bowel Surgery, Nephrectomy, Transurethral Resection, Joint Replacement, Amputation, Open Reduction Internal Fixation, Arthroscopy, Neurologic Surgery, Brain Shunt, Mastectomy, Lumpectomy, Hysterectomy, Tubal Ligation, Section or Organ Transplant Social History SMOKING STATUS: Smoking status: Never smoker SECOND HAND EXPOSURE: second hand exposure: No ALCOHOL: Alcohol Intake: Never HOUSING: Housing: House LIVES WITH: Lives With: Spouse Patient Portal Questionaires Social History Living Situation History Housing: House Tobacco History Smoking Status: Never smoker Second Hand Smoke Exposure: No Alcohol History Alcohol Intake: Never Domestic Abuse History Do You Feel Safe at Home: Yes Review of Systems Report any current symptoms Only answer those that you have currently: Past Medical History Past Medical History Have you ever been diagnosed with any of the following: Neurological Problems Cerebrovascular Accident (CVA): No Transient Ischemic Attacks (TIA): No Dementia: No Alzheimer's Disease: No Parkinson's Disease: No Brain Tumor: No Meningitis: No Seizures: No Epilepsy: No Multiple Sclerosis: No Cerebral Palsy: No Amyotrophic Lateral Sclerosis (ALS/Sandy Gehrig's): No Guillain-[place] Syndrome: No Spina Bifida: No Paralysis: No Peripheral Neuropathy: No Honeycutt's Palsy: No Subdural Hematoma: No Migraine: No Head Trauma: No Spinal Cord Injury: No Traumatic Brain Injury: No Cardiology Problems Myocardial Infarction: No Cardiac Arrhythmia: No Atrial Fibrillation: No Angina: No Heart Murmur: No Coronary Artery Disease: No Atherosclerotic Heart Disease: No Peripheral Vascular Disease: No Hypercholesterolemia: No Aneurysm: No Congestive Heart Failure: No Congenital Heart Disease: No Valvular Heart Disease: No Rheumatic Fever: No Cardiomyopathy: No Pericarditis: No Cellulitis: No Deep Vein Thrombosis: No Hypertension: No Hypotension: Yes Varicose Veins: No Respiratory Problems Chronic Obstructive Pulmonary Disease (COPD): No Asthma: No Bronchitis: No Emphysema: No Pneumonia: No Pulmonary Fibrosis: No Tuberculosis: No Pulmonary Embolism: No Pulmonary Edema: No Sleep Apnea: No Stomache/Intestinal Problems Hepatitis: No Cirrhosis: No Pancreatitis: Yes Celiac Disease: No Gall Bladder Disease: No Gastrointestinal Bleed: Yes (d/t hemorroids) Esophageal Varices: No Lee's Esophagus: No Colitis: No Ulcerative Colitis: No Diverticulitis: No Diverticulosis: No Ulcer: Yes (sx in 2013) Colorectal Cancer: No Crohn's Disease: No Hiatal Hernia: Yes Hemorrhoids: Yes Gastroesophageal Reflux Disease: No Obesity: Yes Genital/Urinary Problems Renal Disease: No Kidney Stones: No Polycystic Kidney Disease: No Neurogenic Bladder: No Inguinal Hernia: No Dialysis: No Reproductive Problems Breast Cancer: No Endometriosis: No Genital Herpes: No Gonorrhea: No Pelvic Inflammatory Disease: No Previous Pregnancies: Yes (2 pregnancies) Syphilis: No Uterine Prolapse: No Musculoskeletal Problems Muscular Dystrophy: No Myasthenia Gravis: No Marfan's Syndrome: No Bone Cancer: No Arthritis: No Rheumatoid Arthritis: No Osteoporosis: No Degenerative Disk Disease: Yes Gout: No Scoliosis: No Carpal Tunnel Syndrome: No Fibromyalgia: No Fractures: No Degenerative Joint Disease: No Osteomyelitis: No Poliovirus: No Head,Eye,Nose,Throat Problems Cataracts: No Glaucoma: No Blind: No Retinal Detachment: No Macular Degeneration: No Chronic Ear Infections: No Deafness: No Eye Prosthesis: No Endocrine Problems Diabetes Mellitus Type 1: No Diabetes Mellitus Type 2: No Hypoglycemia: No Munday's Syndrome: No Héctor's Disease: No Hyperthyroidism: No Hypothyroidism: No Parathyroid Disease: No Pituitary Disease: No Systemic Lupus Erythematosus: No Syndrome of Inappropriate Antidiuretic Hormone: No Adrenal Disease: No Graves' Disease: No Blood Problems Anemia: Yes Leukemia: No Hemophilia: No Thalassemia: No Sickle Cell Disease: No Clotting Problems: No Psychologic Problems Schizophrenia: No Recreational Drug Use: No Bipolar Disorder: No Depression: No Anxiety: No Behavior Problems: No Self-Mutilation: No Attention Deficit Disorder: No Attention Deficit Hyperactivity Disorder: No Depression: No Post Traumatic Stress Disorder: No Eating Disorder: No Other Problems Hospitalization: Yes Down Syndrome: No Autism: No Developmental Delay: No Shingles: No Falls: No Blood Transfusions: No Blood Transfusion Reaction: No Anesthesia Reactions: No Organ Transplant: No Chemotherapy: No Radiation Therapy: No Hyperbaric Therapy: No MRSA: No VRSA: No Vancomycin-Resistant Enterococci: No Human Immunodeficiency Virus (HIV): No Chicken Pox: No Measles: No Mumps: No Rubella (Arabic Measles): No Pertussis: No Clostridium Difficile: No Cancer: No Cervical Cancer: No Lung Cancer: No Ovarian Cancer: No Surgical History Carotid Endarterectomy: No Coronary Artery Bypass Graft: No Valve Replacement: No Hysterectomy: No Pacemaker: No Thyroidectomy: No History of Present Illness HPI Narrative 34-year-old female with past medical history of gastric ulcer and symptomatic hypotension during presenting to the [facility] for follow-up after hospital discharge for acute idiopathic pancreatitis. Patient denies any concerning symptoms at this time. On exam patient does have mild RLQ tenderness on deep palpation, otherwise exam is unremarkable. Patient continues to take protonix and sucralfate for PUD without any new symptoms. Patient does not have estbalished PCP as such will reorder labs and complete annual physical in two weeks. Will continue to monitor the patient's abdominal discomfort and refer to GI if she has reemergent abdominal pain or discomfort. 02/20/2005 patient was seen and examined at bedside. Patient reported significant improvement of her abdominal pain. She mentions that she is been tolerating oral food with no issue. Patient denied any nausea or vomiting however she reported episodes of diarrhea since she was discharged from the hospital. However, she mentions that most of her symptoms are improving significantly. She came today for follow-up for her lab results however upon reviewing the patient chart I could not find any blood work results. I spoke with the center medical director Nathaly to login to [facility] to see if she has done any blood work however it was not found. Today we also had discussion regarding her body weight she reported that 2 days ago she had a fall while she was at work and she injured her back for that reason her physical activity has declined. She believes that the reason she gained weight. Patient is open to lost weight at this time. We recommended the patient to start with lifestyle modification in which she has decreased her carbohydrate intake increase her fiber intake including more vegetables and fruits in the diet. If these measures fails during next visit we will consider starting the patient medical treatment for her morbid obesity as her body mass index of 44. Review of Systems Review of Systems Systems Reviewed: All systems reviewed, normal except as documented Objective/Exam Narrative Physical exam: GEN: AOx3, able to speak full sentences, morbidly obese [place] woman HEENT: NC/AC, oral mucosa moist, neck supple CVS: RRR, S1-S2 present, no murmurs appreciated RESP: CTAB GI: soft,non distended, non tender, NBS MSK: able to move all 4 limbs, no lower extremity edema SKIN: warm and dry HOT BILLET SHEAR OPERATOR: CN II-XII and Sensation grossly intact. Assessment & Plan Diagnosis / Problem List (1) Peptic ulcer disease: Status: Acute (2) Pancreatitis: Status: Acute Qualifiers: Acute pancreatitis complication: no infection or necrosis Chronicity: acute Pancreatitis type: unspecified pancreatitis type Qualified Code(s): K85.90 - Acute pancreatitis without necrosis or infection, unspecified (3) Biliary dyskinesia: Status: Acute Plan: Patient was discharged on omeprazole after her admission because of her peptic ulcer disease. HIDA scan was done during her stay in the hospital and it was found that she has biliary dyskinesia with ejection fraction of 71%. Due to the variability of the results of the HIDA scan General Surgery consultation was done during her stay in which acute cholecystitis was ruled out. At this time her pain has been improving significantly, patient developed a few episodes of diarrhea after she was discharged in the hospital however she mentions that all her symptoms are improving significantly. patient has already referred to ribbon weaver by one of the providers at [facility] however she has not seen the ribbon weaver yet Plan ? Continue omeprazole 40 mg p.o. daily ? Avoid fatty meals ? Follow-up with the ribbon weaver as an outpatient, we will fax the medical record to the GI specialist today (4) Morbid obesity: Status: Acute Assessment & Plan: Patient has history of back injury 2 years ago she mentions that limited her physical activity. Patient body mass index of 44. Patient is willing to lose weight in order to help prevent obesity complications such as hypertension and diabetes. TSH is normal, A1c was done on 26 Jan 2025 it was 5.2. Plan: ? Extensive counseling of the patient body weight, obesity complications were discussed with the patient and she is willing to change her lifestyle. ? Next visit if the patient has difficulty losing weight we will consider starting the patient on medical treatment. GLP-1 agonist are a good option for the patient however because of her history of pancreatitis we will have discussion with the patient regarding the risk and benefits of using these injections if needed. Office Procedures [facility] Level of Care Nursing/Assessment Patient Status: Established Patient Nursing Assessment/Reassessment: Medication Reconciliation, Update PMH in EMR and Vital Signs Coordination of Care: Complex Care and Chronic Disease 1-5, Consent,records obtained, informed consent, Education Simp Pt/Fam, Lab and Imaging orders and Staff clarify orders Established Patient Charge Established Patient Point Assignment: 100 Established Patient Point Charge: EP Level 3 (80-115)
[2025-02-21 10:34] VITALS: BP 104/69; PULSE 86; RESP 18; TEMP 36.8; O2SAT 98; BMI 44.5
== END 2025-02-20 12:11 | disposition home or self-care (01) ==
DX: K27.9 Peptic ulcer, site unspecified, unspecified as acute or chronic, without hemorrhage or perforation (principal); K82.8 Other specified diseases of gallbladder; E66.01 Morbid (severe) obesity due to excess calories; Z68.41 Body mass index [BMI] 40.0-44.9, adult; I10 Essential (primary) hypertension; E11.9 Type 2 diabetes mellitus without complications
CPT/HCPCS: 99213; G0463

== ENCOUNTER 2025-04-08 17:57 | Inpatient (IN) | payer MEDICAID, SELFPAY ==
[2025-04-08 18:21] VITALS: BP 131/86; PULSE 66; RESP 20; TEMP 36.8; O2SAT 97
--- NOTE | 2025-04-08 18:26 | XR_ITS ---
Examination: CT abdomen with intravenous contrast CT pelvis with intravenous contrast 2-D coronal reconstructions 2-D sagittal reconstructions Date and time of exam:April 08, 2025 1946 hours, comparison January 26, 2025. INDICATIONS: Epigastric pain today. CTDI: vol (mGy) 15.6 DLP: (mGycm) 865 Technique: Multiple axial sections of the abdomen and pelvis have been obtained. 64 slice high-resolution scanner used. 3 mm axial sections have been obtained, post intravenous injection 60 cc of Isovue 370. 2-D sagittal, coronal reconstructions obtained. Low dose protocols were performed. One or more of the following dose reduction techniques were used; automated exposure control, adjustment of the mA and/or KV according to patient size, use of iterative reconstruction technique. Findings: No focal liver or splenic lesions Gallstones Gallbladder wall appears thickened Prominent acute pancreatitis, no pseudocyst No hydronephrosis No bowel obstruction Small fat-containing inguinal hernia Normal appendix Free fluid in the pelvis Intact urinary bladder IMPRESSION: Acute pancreatitis Cholelithiasis, recommend gallbladder sonography follow-up
--- NOTE | 2025-04-08 18:33 | EDNOTE_ITS ---
ED Abdominal Pain RME/HPI General Chief Complaint: Abdominal Pain Stated complaint: ABD PAIN RADIATING TO BACK SINCE YESTERDAY Time seen by provider: 04/08/25 18:29 Arrival date/time: 04/08/25 17:57 Limitations: no limitations RME / HPI RME / HPI narrative: 54-[id number]-[id number]-year-old female is here today of acute abdominal pain. This is at her epigastrium radiates to her back. She denies any vomiting although she e ndorses nausea. She has no diarrhea. Denies any flank pain or dysuria. No fevers or chills. She does have a history of acute pancreatitis. She denies any history of diabetes, alcohol abuse, or any chronic disease. She was admitted here 2 months ago for similar symptoms. Related Data Home Medications ?Medication ?Instructions ?Recorded ?Confirmed omeprazole 40 mg capsule,delayed 40 mg PO BID 01/26/25 02/21/25 release ondansetron HCl 4 mg tablet 4 mg PO TID PRN nausea and vomiting 01/26/25 02/21/25 sucralfate 1 gram tablet 1 g PO BID 01/26/25 02/21/25 Allergies Allergy/AdvReac Type Severity Reaction Status Date / Time No Known Allergies Allergy Verified 04/08/25 18:02 Review of Systems Review of Systems Systems Reviewed: All systems reviewed, normal except as documented ED Exam General Limitations: Present no limitations General appearance: Present alert and in no apparent distress Head Head exam: Present atraumatic Eye Eye exam: Present normal appearance, PERRL and EOMI ENT ENT exam: Present normal exam, normal oropharynx and mucous membranes moist Neck Neck exam: Present normal inspection, full ROM and trachea midline Chest Chest inspection: Present normal inspection and symmetric chest wall rise Respiratory Respiratory exam: Present normal lung sounds bilaterally Cardiovascular Cardiovascular exam: Present regular rate, normal rhythm and normal heart sounds Abdominal Exam Abdominal exam: Present distention and tenderness; Absent guarding, rebound or rigidity Extremities Exam Extremities exam: Present normal inspection and full ROM Back Exam Back exam: Present normal inspection and full ROM Neurological Exam Neurological exam: Present alert, oriented X3 and CN II-XII intact Psychiatric Psychiatric exam: Present normal affect and normal mood Skin Skin exam: Present warm, dry, intact and normal color Course Quality Measures none Orders Category Date Time Status CT Screening NOW Care 04/08/25 18:[address] abdomen pelvis w con Stat Exams 04/08/25 18:26 Completed US abdomen limited Stat Exams 04/08/25 20:51 Completed Alcohol, Blood Medical Stat Lab 04/08/25 18:40 Completed CBC Stat Lab 04/08/25 18:40 Completed CMP [Comprehensive Metabolic Panel] Stat Lab 04/08/25 18:40 Completed HCG,Qualitative Serum Stat Lab 04/08/25 18:40 Completed Lactic Acid [Lactate (Lactic Acid)] Stat Lab 04/08/25 18:40 Completed Lipase Stat Lab 04/08/25 18:40 Completed Lipid Panel Stat Lab 04/08/25 18:40 Completed UA, C/S IF [Urinalysis, C/S if Indicated] Stat Lab 04/08/25 19:21 Completed Morphine Inj Med 04/08/25 18:26 Discontinued 4 mg IVP X1 ONE Morphine Inj Med 04/08/25 21:48 Discontinued 4 mg IVP X1 ONE Ondansetron Inj [Zofran Inj] Med 04/08/25 18:26 Discontinued 4 mg IVP X1 ONE Vital Signs Vital signs: Vital Signs Temperature 98.2 F 04/08/25 18:21 Pulse Rate 66 04/08/25 18:21 Respiratory Rate 20 04/08/25 18:21 Blood Pressure 131/86 H 04/08/25 18:21 Pulse Oximetry (%) 97 04/08/25 18:21 Oxygen Delivery Method Room Air 04/08/25 18:21 Abdominal Pain MDM MDM Narrative MDM Narrative:: 61-clvk-kod-year-old female is here today of acute abdominal pain. This is at her epigastrium radiates to her back. She denies any vomiting although she endorses nausea. She has no diarrhea. Denies any flank pain or dysuria. No fevers or chills. She does have a history of acute pancreatitis. She denies any history of diabetes, alcohol abuse, or any chronic disease. She was admitted here 2 months ago for similar symptoms. On initial exam, patient has a soft but tender abdomen. She is nontoxic- appearing. Vital signs are stable. Her pain improved with a single dose of morphine initially. Workup was initiated. Patient was found to have acute, nonalcoholic, pancreatitis. Pain was controlled here with doses of morphine. Will admit to medicine. [facility] and will further evaluate the patient. Patient data External records reviewed:: [facility] previous records Clinical information provided by:: patient Social determinants that could affect healthcare access:: none Patient has the following chronic illnesses:: n/a How is presenting disease/condition affected by chronic disease/condition?: uneffected by Evaluation data The following diagnostics were reviewed and interpreted by me:: lab results (Significant pancreatitis with a lipase of 4125, AST is 549, ALT is 511, alk phos is 205 bilirubin is elevated at 2.3) and radiology exam(s) (CT of the abdomen pelvis reveals acute pancreatitis with no CBD widening, gallbladder ultrasound reveals no cholelithiasis or cholecystitis, no CBD widening) Lab and/or radiology exams considered but not ordered:: n/a Interpretation Summary: Elevated lipase and liver enzymes Medications / Prescriptions Medications or Prescriptions considered but not ordered:: n/a Medication administrations:: Medication Administration History Discontinued Medications Morphine Sulfate (Morphine Sulf Inj 10 Mg/Ml Vial) 4 mg IVP X1 ONE Stop: 04/08/25 18:27 Last Admin: 04/08/25 19:23 Dose: 4 mg Documented By: DT Morphine Sulfate (Morphine Sulf Inj 10 Mg/Ml Vial) 4 mg IVP X1 ONE Stop: 04/08/25 21:49 Last Admin: 04/08/25 21:55 Dose: 4 mg Documented By: DT Ondansetron HCl (Ondansetron Inj 2 Mg/Ml Inj 2 Ml) 4 mg IVP X1 ONE; Protocol Stop: 04/08/25 18:27 Last Admin: 04/08/25 19:22 Dose: 4 mg Documented By: DT See above Consultations Consultation(s) initiated? (list below): No Diagnosis Differential diagnosis abdominal pain: acute appendicitis, constipation, pancreatitis and small bowel obstruction Most likely diagnosis given after review of the tests above:: Acute pancreatitis, acute hepatitis Admission Indicated Admission indicated?: indicated Admission Request Was there a request for admission?: Yes Admission Attestation Admission request attestation: Discussed case with [] from Hospitalist service regarding admission. Discussed patients ED course, exam findings, labs, and radiology results. The Hospitalist [agrees,declines] to accept the patient for admission. Disposition Plan Disposition Plan: Admit Discharge Plan Plan Patient Disposition: Admit Acute Care w/in Hospital Prescriptions/Referrals Prescriptions/Med Rec: No Action sucralfate 1 gram tablet 1 g PO BID ondansetron HCl 4 mg tablet 4 mg PO TID PRN (Reason: nausea and vomiting) omeprazole 40 mg capsule,delayed release(DR/EC) 40 mg PO BID Referrals: No Primary/Family,Physician [Primary Care Provider] - In 1 week Problem List Clinical Impression: Acute alcoholic pancreatitis, Acute hepatitis Patient/Caregiver Discharge Instructions Print Language: Belarusian Stand Alone Forms: [employer] Award Info., Patient Portal Info Letter
[2025-04-08 18:50] LABS: Basophils # (Auto) 0.0 Thou/mm3 (0.0-0.2); Basophils % (Auto) 0 % (0-2.5); Eosinophils # (Auto) 0.0 Thou/mm3 (0.0-0.5); Eosinophils % (Auto) 0 % (0-10); Hematocrit 42.2 % (36.0-46.0); Hemoglobin 14.4 g/dL (12.0-16.0); Immature Granulocytes Auto 0.05 Thou/mm3 (0.00-0.00); Lymphocytes # (Auto) 0.6 Thou/mm3 (1.0-4.8); Lymphocytes % (Auto) 5 % (10-50); Mean Corpuscular HGB Conc 34.1 g/dl (31.0-37.0); Mean Corpuscular Hemoglobin 29.1 pg (25.0-35.0); Mean Corpuscular Volume 85 fL (80-100); Monocytes # (Auto) 0.5 Thou/mm3 (0.0-0.8); Monocytes % (Auto) 4 % (0-12); Neutrophils # (Auto) 11.3 Thou/mm3 (1.8-7.7); Neutrophils % (Auto) 90 % (37-80); Nucleated Red Blood Cell # 0.00 Thou/mm3 (0.00-0.00); Nucleated Red Blood Cell % 0 /100 WBC (0); Platelet Count 287 Thou/mm3 (140-440); RDW Standard Deviation 39.4 fL (36.4-46.3); Red Blood Count 4.95 Miln/mm3 (4.00-5.20); White Blood Count 12.5 Thou/mm3 (3.6-11.0)
[2025-04-08 18:51] LABS: Lactate (Lactic Acid) 1.0 mMol/L (0.4-2.0)
[2025-04-08 19:20] VITALS: BP 134/80; PULSE 56; RESP 18; TEMP 37.3; O2SAT 97
[2025-04-08] MEDS: ONDANSETRON INJ 2 MG/ML INJ 2 ML 4 MG IVP (19:22)
[2025-04-08] MEDS: MORPHINE SULF INJ 10 MG/ML VIAL 4 MG IVP ×2 (19:23→21:55)
[2025-04-08 19:26] LABS: HCG,Qualitative Serum Negative
[2025-04-08 19:27] LABS: Collection Type, Urine Voided
[2025-04-08 19:32] LABS: Alanine Aminotransferase 511 U/L (10-49); Albumin, Serum 4.5 gm/dL (3.5-5.0); Albumin/Globulin Ratio 1.6 (1.2-2.2); Alcohol, Blood Medical < 3.0 mg/dL (0-10.0); Alkaline Phosphatase 205 U/L (46-116); Anion Gap 10 (7-16); Aspartate Amino Transferase 549 U/L (0-34); BUN/Creatinine Ratio 8 Ratio (12-20); Bilirubin,Total 2.3 mg/dL (0.3-1.2); Blood Urea Nitrogen 6 mg/dL (9-23); Calcium 9.2 mg/dL (8.3-10.6); Calcium (Corrected) 9.2 mg/dL (8.5-10.1); Carbon Dioxide 22.7 mMol/L (20.0-31.0); Chloride 107 mMol/L (98-107); Creatinine (Component) 0.8 mg/dL (0.6-1.3); Globulin 2.8 gm/dL (2.3-3.5); Glucose 172 mg/dL (74-106); Osmolality,Calculated 281 (275-295); Potassium 4.0 mMol/L (3.4-5.1); Sodium 140 mMol/L (136-145); Total Protein 7.3 gm/dL (5.7-8.2); eGFR > 60 See Note
[2025-04-08 19:47] LABS: Amorphous Crystals,Urine Present (Absent); Bacteria,Urine Rare; Bilirubin,Urine 2+ (Negative); Blood,Urine Negative (Negative); Clarity,Urine Turbid (Clear/Hazy); Color,Urine Drk-Yellow (Lt Yel-Yel); Culture Indicated,Urine Not Indicated; Glucose, Urine Trace (Negative); Ketones,Urine 1+ (Negative); Leukocyte Esterase,Urine Negative (Negative); Nitrite,Urine Negative (Negative); PH,Urine 6.0 (5.0-7.0); Protein,Urine 1+ (Neg - Trace); RBC,Urine 3 /hpf (0-3); Specific Gravity,Urine 1.029 (1.001-1.035); Squamous Epithelial Cell,Urine 2 /hpf (0-5); Urobilinogen,Urine 2.0 mg/dL (0.0-1.0); WBC,Urine 2 /hpf (0-5)
[2025-04-08 20:10] VITALS: BP 130/87; PULSE 73; RESP 18; TEMP 36.8; O2SAT 95
[2025-04-08 20:46] LABS: Lipase 4125 U/L (12-53)
--- NOTE | 2025-04-08 20:51 | XR_ITS ---
Examination: Abdomen sonogram, Limited Date and time of exam: April 08, 2025 2102 hours INDICATIONS: Abdominal pain and vomiting beginning 2 days ago Technique: Real-time marr scale transabdominal sonographic images of the upper abdomen obtained. Findings: Gallbladder sludge Negative for gallstones Gallbladder wall 0.37 cm no edema Common bile duct 0.4 cm Pancreatic head 3.7 cm Liver 16.8 cm fatty infiltration Normal hepatopedal portal venous flow Patent IVC IMPRESSION: Gallbladder sludge, negative for cholelithiasis, no gallbladder wall edema Normal common bile duct Pancreatic head measures prominent, please see the CT abdomen study today indicating acute pancreatitis
[2025-04-08 22:12] VITALS: BP 122/87; PULSE 67; RESP 16; TEMP 37.3; O2SAT 97
[2025-04-08 22:25] LABS: Cardiac Risk Estimate 2.8 RATIO (3.7-5.6); Cholesterol 164 mg/dL (132-200); HDL Cholesterol 58 mg/dL (40-60); LDL Cholesterol,Calculated 88 mg/dL (0-130); Triglycerides 88 mg/dL (30-150)
--- NOTE | 2025-04-08 22:59 | ESHP_ITS ---
Documentation for date of: 04/08/25 HPI History of Present Illness Chief complaint: Abdominal pain History of present illness: 34-year-old female with past medical history of gastric ulcer, biliary dyskinesia, symptomatic hypotension during in the past presenting to the ED on 04/08 with abdominal pain. Patient states that the pain started sometime around 9 PM on 04/07 and has been waxing and waning. Patient's pain is localized in the epigastric region and radiates to her back and is very severe when it is at its worst. Patient rates the pain at 9 out of 10 and notes that when she lays on her right side the pain starts to begin. Of note, patient was admitted on January 26, 2025 with a similar presentation; however, at that time etiology of pancreatitis was deemed to be secondary to biliary dyskinesia. The plan was left for the patient to receive a laparoscopic cholecystectomy as an outpatient; however, the patient has not yet had the procedure. Patient follows up at the [facility] and on the last visit patient had significant improvement in her abdominal pain but she had yet to see a clinical statistics manager. Medical history: As stated above Surgical history: Denies Allergies: NKDA Medications: Omeprazole Family history: Unremarkable Social history: Patient denies any alcohol, tobacco or illicit drug use. Lives in [place] with ROS: All 12 systems assessed and the patient denies unless otherwise stated in the HPI In the ED, patient presented mildly hypertensive 131/86, heart rate 66, respirate 20, afebrile satting 97 on room air. Pertinent lab findings include WBC of 12.5, BUN 6, creatinine 0.8, glucose 172, T. bili 2.3, AST 549, ALT 511, alk phosphatase 205, lipase 4125, triglycerides 88. Urinalysis showed proteinuria, ketonuria but there were no signs of infection. CT abdomen pelvis showed acute pancreatitis with cholelithiasis and ultrasound of the abdomen showed gallbladder sludge negative for cholelithiasis with a common bile duct of 0.4 cm and prominent pancreatic head. Patient will be admitted for acute pancreatitis likely secondary to biliary dyskinesia will be treated with IV fluids and IV pain medication; will consider consulting surgery for inpatient cholecystectomy. Exam Vital Signs Temp Pulse Resp BP Pulse Ox O2 Del Method 99.1 F 67 16 122/87 H 97 Room Air 04/08/25 22:12 04/08/25 22:12 04/08/25 22:12 04/08/25 22:12 04/08/25 22:12 04/08/25 22:12 Narrative Exam Physical Exam: GENERAL: Awake, answering questions appropriately, appears stated age HEENT: NC/AT. Moist mucosa. PERRLA/EOMI. CARDIO: Heart RRR, no obvious murmurs, no JVD. PULM: No coughing or visible SOB. Lungs CTA B/L. GI: Abdomen soft, tender to palpation in epigastric and right upper quadrant with guarding, no rigidity noted. [place] apparent SKIN/MSK/EXT: No wounds/discoloration/rashes/edema/amputations. +Pedal pulses present B/L. NEURO: Oriented x3. Moves extremities x4, no focal neurologic deficits noted Results: Labs 04/08/25 18:40 04/08/25 18:40 Labs: Short CBC 04/08/25 Range/Units 18:40 WBC 12.5 H (3.6-11.0) Thou/mm3 Hgb 14.4 (12.0-16.0) g/dL Hct 42.2 (36.0-46.0) % Plt Count 287 (140-440) Thou/mm3 BMP 04/08/25 18:40 Sodium 140 Potassium 4.0 Chloride 107 Carbon Dioxide 22.7 BUN 6 L Creatinine 0.8 Glucose 172 H Calcium 9.2 Liver Function 04/08/25 Range/Units 18:40 Total Bilirubin 2.3 H (0.3-1.2) mg/dL AST 549 H* (0-34) U/L ALT 511 H* (10-49) U/L Alkaline Phosphatase 205 H (46-116) U/L Albumin 4.5 (3.5-5.0) gm/dL Urine 04/08/25 Range/Units 19:21 Urine Color Drk-Yellow A (Lt Yel-Yel) Urine Clarity Turbid A (Clear/Hazy) Urine pH 6.0 (5.0-7.0) Ur Specific Graff 1.029 (1.001-1.035) Urine Protein 1+ A (Neg - Trace) Urine Glucose (UA) Trace (Negative) Quality Measures Quality Measures none Medications Home Medications and Allergies Home Medications ?Medication ?Instructions ?Recorded ?Confirmed ?Type omeprazole 40 mg capsule,delayed 40 mg PO BID 01/26/25 02/21/25 History release ondansetron HCl 4 mg tablet 4 mg PO TID PRN nausea and vomiting 01/26/25 02/21/25 History sucralfate 1 gram tablet 1 g PO BID 01/26/25 02/21/25 History Allergies Allergy/AdvReac Type Severity Reaction Status Date / Time No Known Allergies Allergy Verified 04/08/25 18:02 Visit Medications Acetaminophen (Acetaminophen 325 Mg Tablet) 650 mg PO Q6H PRN PRN Reason: PAIN SCALE 1-3 (mild Stop: 05/08/25 22:36 Lactated Ringer's (Lactated Ringers) 1,000 mls @ 200 mls/hr IV .Q5H LACHO Stop: 05/08/25 22:44 Morphine Sulfate (Morphine Sulf Inj 10 Mg/Ml Vial) 2 mg IVP Q4H PRN PRN Reason: PAIN SCALE 7-10 (Severe Stop: 04/13/25 22:36 Ondansetron HCl (Ondansetron Inj 2 Mg/Ml Inj 2 Ml) 4 mg IVP Q6H PRN; Protocol PRN Reason: NAUSEA OR VOMITING Stop: 05/08/25 22:36 Discontinued Medications Morphine Sulfate (Morphine Sulf Inj 10 Mg/Ml Vial) 4 mg IVP X1 ONE Stop: 04/08/25 18:27 Last Admin: 04/08/25 19:23 Dose: 4 mg Morphine Sulfate (Morphine Sulf Inj 10 Mg/Ml Vial) 4 mg IVP X1 ONE Stop: 04/08/25 21:49 Last Admin: 04/08/25 21:55 Dose: 4 mg Ondansetron HCl (Ondansetron Inj 2 Mg/Ml Inj 2 Ml) 4 mg IVP X1 ONE; Protocol Stop: 04/08/25 18:27 Last Admin: 04/08/25 19:22 Dose: 4 mg Assessment & Plan Plan 34-year-old female with past medical history of gastric ulcer, biliary dyskinesia, symptomatic hypotension during in the past presenting to the ED with abdominal pain will be admitted for acute pancreatitis likely secondary to biliary dyskinesia will be treated with IV fluids and IV pain medication; will consider consulting surgery for inpatient cholecystectomy. #Acute pancreatitis #Leukocytosis #Biliary dyskinesia Patient presenting with abdominal pain pathognomonic for pancreatitis with gastric pain radiating to the back Of note, patient has similar presentation in the past likely secondary to biliary dyskinesia Patient denies any alcohol use, lipid panel is negative for any elevated triglycerides Lipase elevated at 4125 WBC of 12.5 likely reactive and secondary to acutely ill status CT abdomen pelvis showed acute pancreatitis with cholelithiasis Ultrasound of the abdomen showed gallbladder sludge negative for cholelithiasis with a common bile duct of 0.4 cm and prominent pancreatic head. Plan: IV fluid resuscitation with LR 200 cc an hour Multimodal pain management Consider surgery consultation for inpatient laparoscopic cholecystectomy #Elevated liver enzymes #Metabolic associated steatotic liver disease Patient has marked elevation in liver function enzymes AST 549, ALT 2511, alk phos 205 and T. bili of 2.3 Patient had hepatitis panel done in last admission it was negative Likely secondary to above presentation of acute pancreatitis and gallbladder sludge seen Plan: Continue to monitor for any acute changes Follow-up with morning labs #Elevated blood glucose Patient presents with an elevated blood glucose of 172 Last A1c on 01/26/2025 is 5.2% Patient is not on any diabetes medication Plan: Sliding scale insulin #History of gastric ulcer Patient is on omeprazole at home Plan: Will start IV Protonix 40 daily Health Maintenance: Lines: PIV Diet: N.p.o. Bowel: Not needed at this time GI prophylaxis: IV Protonix DVT prophylaxis: SCD Dispo: IV fluid resuscitation for acute pancreatitis and possible surgery consultation for laparoscopic cholecystectomy Code: Full Patient seen and assessed with attending Dr. Kwaku Benitez, DO PGY-2 Internal Medicine - GME Attending Provider Attestation/Addendum 34-year-old [place]er-speaking female with peptic ulcer disease was admitted for abdominal pain. Patient has pancreatitis. Most likely secondary to biliary dyskinesia. Patient has not had a cholecystectomy that was previously planned. The patient takes sucralfate, pantoprazole and Zofran. Her is at bedside who brought her pills. The patient denies smoking no alcohol use. Patient will be admitted for further care treatment. Discussed with housestaff.
[2025-04-08] MEDS: RINGERS LACTATED 1000 ML 1,000 ML 200 ML IV (23:39)
--- NOTE | 2025-04-08 23:54 | PC.NURSE ---
Report received, pt arrived with at side to room 350 via gurney was able to transfer self, oriented to room call light placed within reach.
[2025-04-08 23:55] VITALS: BP 115/70; PULSE 62; RESP 16; TEMP 36.2; O2SAT 97
[2025-04-08 23:56] LABS: LDH (Lactate Dehydrogenase) 495 U/L (120-246)
--- NOTE | 2025-04-09 | XR_ITS ---
MRI abdomen, without contrast. MRCP Date and time of exam: April 09, 2025 1411 hours INDICATIONS: Elevated total bilirubin on laboratory examination today, acute pancreatitis on CT abdomen and pelvis April 08, 2025 Technique: Multiple axial and coronal images of the abdomen have been obtained with the Siemens 1.5T MRI scanner. Images obtained included T1 weighted transverse images, T2-weighted transverse images, T2-weighted transverse images fat-suppressed, T2 weighted haste fat suppressed transverse images, T1 weighted images, in and out of phase images, T2-weighted coronal images, breath hold, T2 weighted haze coronal images as well as T2 weighted coronal thick slab images, MRCP. Findings: No intrahepatic biliary tract dilatation Multiple small gallstones Gallbladder wall measures 4 mm Common hepatic common bile duct are not enlarged, no common hepatic or common bile duct stones Spleen is not enlarged Extensive edema surrounding the pancreas, no pseudocyst No hydronephrosis Aorta normal size IMPRESSION: Acute pancreatitis. Cholelithiasis. No common hepatic or common bile duct stones
[2025-04-09] MEDS: MORPHINE SULF INJ 10 MG/ML VIAL 2 MG IVP ×2 (00:17→07:14)
[2025-04-09] MEDS: ONDANSETRON INJ 2 MG/ML INJ 2 ML 4 MG IVP ×2 (00:17→14:06)
[2025-04-09 04:00] VITALS: BP 115/71; PULSE 75; RESP 16; TEMP 36.1; O2SAT 97
[2025-04-09] MEDS: RINGERS LACTATED 1000 ML 1,000 ML 200 ML IV ×4 (04:10→21:50)
[2025-04-09 04:27] LABS: Basophils # (Auto) 0.0 Thou/mm3 (0.0-0.2); Basophils % (Auto) 0 % (0-2.5); Eosinophils # (Auto) 0.1 Thou/mm3 (0.0-0.5); Eosinophils % (Auto) 1 % (0-10); Hematocrit 39.3 % (36.0-46.0); Hemoglobin 13.4 g/dL (12.0-16.0); Immature Granulocytes Auto 0.02 Thou/mm3 (0.00-0.00); Lymphocytes # (Auto) 1.1 Thou/mm3 (1.0-4.8); Lymphocytes % (Auto) 15 % (10-50); Mean Corpuscular HGB Conc 34.1 g/dl (31.0-37.0); Mean Corpuscular Hemoglobin 29.6 pg (25.0-35.0); Mean Corpuscular Volume 87 fL (80-100); Monocytes # (Auto) 0.5 Thou/mm3 (0.0-0.8); Monocytes % (Auto) 7 % (0-12); Neutrophils # (Auto) 5.8 Thou/mm3 (1.8-7.7); Neutrophils % (Auto) 77 % (37-80); Nucleated Red Blood Cell # 0.00 Thou/mm3 (0.00-0.00); Nucleated Red Blood Cell % 0 /100 WBC (0); Platelet Count 221 Thou/mm3 (140-440); RDW Standard Deviation 40.5 fL (36.4-46.3); Red Blood Count 4.52 Miln/mm3 (4.00-5.20); White Blood Count 7.5 Thou/mm3 (3.6-11.0)
[2025-04-09 04:47] LABS: Alanine Aminotransferase 498 U/L (10-49); Albumin, Serum 3.9 gm/dL (3.5-5.0); Albumin/Globulin Ratio 1.7 (1.2-2.2); Alkaline Phosphatase 204 U/L (46-116); Anion Gap 11 (7-16); Aspartate Amino Transferase 435 U/L (0-34); BUN/Creatinine Ratio 7 Ratio (12-20); Bilirubin,Total 2.2 mg/dL (0.3-1.2); Blood Urea Nitrogen < 5 mg/dL (9-23); Calcium 8.8 mg/dL (8.3-10.6); Calcium (Corrected) 8.9 mg/dL (8.5-10.1); Carbon Dioxide 24.1 mMol/L (20.0-31.0); Chloride 107 mMol/L (98-107); Creatinine (Component) 0.7 mg/dL (0.6-1.3); Globulin 2.3 gm/dL (2.3-3.5); Glucose 112 mg/dL (74-106); Osmolality,Calculated 281 (275-295); Potassium 3.9 mMol/L (3.4-5.1); Sodium 142 mMol/L (136-145); Total Protein 6.2 gm/dL (5.7-8.2); eGFR > 60 See Note
[2025-04-09 07:50] VITALS: BP 119/80; PULSE 69; RESP 16; TEMP 36.4; O2SAT 97
--- NOTE | 2025-04-09 08:22 | ESPR_ITS ---
<Statement entered by Tyler Zamora MD - 04/17/25 08:01> I reviewed above note and agree with findings and plans. I have also personally examined the patient with medicine team and went over assessment and plan with medical team including architecture internship and resident physician. Documentation for date of: 04/09/25 Overnight admission for acute pancreatitis, which is patient's second admission for acute pancreatitis this year. Patient denied use of illicit drugs and denied alcohol use. Continue IV fluids. Pending MRCP given conflicting images on CT showing gallstones vs US showing no gallstones, may have passed. Pending autoimmune pancreatitis labs. Gastroenterology, Dr. Patel consulted, given concern for possible need of ERCP with elevated AST/ALTs. Dilaudid started and morphine discontinued given concern for possible stones. Subjective Subjective Interval history: Patient was seen and evaluated today at bedside through data developer ([id number]). Patient continued to endorse sharp epigastric, umbilical, and right upper quadrant pain radiating to the back. Queen's sign was positive. Patient continued to deny alcohol use and smoking. Patient stated that her last bowel movements were Wednesday evening and Wednesday morning of small amount and coffee color. Patient acknowledged previous similar episode in January. Patient stated that she last saw a retread operator 03/27/[address] [facility] [place] in [place], but could not remember the name. Plan for MRCP, fractionated TBili, and consult to gastroenterology, Dr. Knott. Exam Vital Signs Temp Pulse Resp BP Pulse Ox O2 Del Method 97.6 F 69 16 119/80 97 Room Air 04/09/25 07:50 04/09/25 07:50 04/09/25 07:50 04/09/25 07:50 04/09/25 07:50 04/09/25 07:50 Narrative Exam General Appearance: Alert & Oriented to person, place, time, and condition; well-nourished female who is lying in bed in moderate distress due to abdominal pain. HEENT: Skull symmetrical and atraumatic. Conjunctivae pink and moist. Pupils equal, round, reactive to light and accommodation (PERRL). External ear without lesion or discharge. Straight, nares patient, mucosa pink, no discharge. No thyroid nodule appreciated. No cervical lymphadenopathy. Cardio: Normal Rate and Rhythm with S1 and S2 heart sounds. No murmurs or extra heart sounds auscultated. No bruits on carotid auscultation. No peripheral edema or cyanosis. Lungs: Symmetric with good expansion. Chest and back non-tender. Breath sounds vesicular without crackles, wheezing or rhonchi Abdomen: Tender to palpation in the epigastric and umbilical regions and right upper quadrants; positive Queen's sign. Neuro: Alert, cooperative, oriented to person, place, time, and condition. Speech clear. CN grossly intact. Upper motor strength 5/5 and Lower motor strength 5/5. Sensation intact. Objective Labs 04/09/25 04:15 04/09/25 10:20 Labs: Laboratory Results - last 24 hr 04/08/25 04/08/25 04/09/25 18:40 19:21 04:15 WBC 12.5 H 7.5 D RBC 4.95 4.52 Hgb 14.4 13.4 Hct 42.2 39.3 MCV 85 87 MCH 29.1 29.6 MCHC 34.1 34.1 RDW Std Deviation 39.4 40.5 Plt Count 287 221 D Neut % (Auto) 90 H 77 Lymph % (Auto) 5 L 15 [place] % (Auto) 4 7 Eos % (Auto) 0 1 Baso % (Auto) 0 0 Neut # (Auto) 11.3 H 5.8 Lymph # (Auto) 0.6 L 1.1 [place] # (Auto) 0.5 0.5 Eos # (Auto) 0.0 0.1 Baso # (Auto) 0.0 0.0 Immature Gran # (Auto) 0.05 H 0.02 H Absolute Nucleated RBC 0.00 0.00 Immature Gran % 0 0 Nucleated RBC % 0 0 Sodium 140 142 Potassium 4.0 3.9 Chloride 107 107 Carbon Dioxide 22.7 24.1 Anion Gap 10 11 BUN 6 L < 5 L Creatinine 0.8 0.7 Estim Creat Clear Calc Not Performed. Not Performed. eGFR > 60 > 60 BUN/Creatinine Ratio 8 L 7 L Glucose 172 H 112 H D Calculated Osmolality 281 281 Lactic Acid 1.0 Calcium 9.2 8.8 Corrected Calcium 9.2 8.9 Total Bilirubin 2.3 H 2.2 H AST 549 H* 435 H ALT 511 H* 498 H Alkaline Phosphatase 205 H 204 H Lactate Dehydrogenase 495 H Total Protein 7.3 6.2 Albumin 4.5 3.9 D Globulin 2.8 2.3 Albumin/Globulin Ratio 1.6 1.7 Triglycerides 88 Cholesterol 164 LDL Cholesterol, Calc 88 HDL Cholesterol 58 Cholesterol/HDL Ratio 2.8 L Lipase 4125 H* HCG, Qual Negative Ur Collection Type Voided Urine Color Drk-Yellow A Urine Clarity Turbid A Urine pH 6.0 Ur Specific [place] 1.029 Urine Protein 1+ A Urine Glucose (UA) Trace Urine Ketones 1+ A Urine Blood Negative Urine Nitrite Negative Urine Bilirubin 2+ A Urine Urobilinogen (Auto) 2.0 Ur Leukocyte Esterase Negative Urine RBC 3 Urine WBC 2 Ur Squamous Epith Cells 2 Amorphous Crystals Present A Urine Bacteria Rare Ur Culture Indicated? Not Indicated Ethyl Alcohol < 3.0 Quality Measures Quality Measures none Assessment & Plan Assessment Current Active Medications: Generic Name Dose Route Start Last Admin Trade Name Freq PRN Reason Stop Dose Admin Acetaminophen 650 mg 04/08/25 22:37 Acetaminophen 325 Mg Tablet PO 05/08/25 22:36 Q6H PRN PAIN SCALE 1-3 (mild Dextrose 25 ml 04/08/25 23:19 Dextrose 50%-Water Inj 50 Ml Syringe IV 05/08/25 23:18 Q15MIN PRN BG 50-70 responsive npo pt Dextrose 50 ml 04/08/25 23:19 Dextrose 50%-Water Inj 50 Ml Syringe IV 05/08/25 23:18 Q15MIN PRN BG <50 OR BG <70 & pt unresponsive Glucagon 1 mg 04/08/25 23:19 Glucagon Inj 1 Mg Vial IM Q15MIN PRN BG <70, and no IV access Lactated Ringer's 1,000 mls @ 200 mls/hr 04/08/25 22:45 04/09/25 04:10 Lactated Ringers IV 05/08/25 22:44 200 mls/hr .Q5H LACHO Administration Insulin Human Lispro 0 unit 04/09/25 00:00 04/09/25 05:30 Insulin Lispro (Admelog) 1 Unit/0.01 Ml Unit SC 05/09/25 00:00 Not Given Q6HR LACHO Protocol Ketorolac Tromethamine 30 mg 04/08/25 23:04 Ketorolac Inj 30 Mg/Ml Vial IVP 04/13/25 23:03 Q6HR PRN Pain 4-6 Morphine Sulfate 2 mg 04/08/25 23:05 04/09/25 07:14 Morphine Sulf Inj 10 Mg/Ml Vial IVP 04/13/25 22:36 2 mg Q6HR PRN Administration PAIN SCALE 7-10 (Severe Ondansetron HCl 4 mg 04/08/25 22:37 04/09/25 00:17 Ondansetron Inj 2 Mg/Ml Inj 2 Ml IVP 05/08/25 22:36 4 mg Q6H PRN Administration NAUSEA OR VOMITING Protocol Pantoprazole Sodium 40 mg 04/09/25 09:00 Pantoprazole Inj 40 Mg Vial IVP 05/09/25 08:59 QDAY LACHO Plan Plan 34-year-old female with past medical history of gastric ulcer, biliary dyskinesia, symptomatic hypotension during in the past presenting to the ED with abdominal pain was admitted for acute pancreatitis, currently unknown cause. Patient currently NPO on IV fluids with gastroenterology consult to Dr. Nikos garcia. #Acute Pancreatitis #History of Idiopathic Acute Pancreatitis 01/2025 Patient endorses abdominal pain consistent with pancreatitis- epigastric, umbilical, and right upper quadrant pain radiating to the back Of note, patient has similar presentation in the past 01/2025, possible causes: idiopathic since the patient has no known risk factors, such as medication, diet, high lipid values, or alcohol usage; biliary abnormalities, such as a passed gallstone, but no stone documented on most recent abdominal ultrasound; autoimmune is a possibility given that no direct cause has been found until now, work-up pending Pertinent labs 04/08: Lipase 4125 TG 88 TC 164 HDL 58 LDL 88 04/[address] abdomen pelvis 04/08: findings consistent with acute pancreatitis and cholelithiasis Ultrasound of the abdomen 04/08 showed gallbladder sludge negative for cholelithiasis, pancreatic head 3.7 cm Plan: MRCP taken, pending results ADAM & IgG4 ordered, pending results IV fluid resuscitation with LR 200 ml/hour Multimodal pain management, including starting IV Dilaudid 1 g Q4HR PRN and [place] 1 tab Q6HR PRN Gastroenterology consulted, Dr. Knott, appreciate recommendations #Elevated liver enzymes #Hyperbilirubinemia Patient complains of right upper quadrant pain, while CT abdomen and Gallbladder US differed on cholelithiasis. Elevated liver enzymes can be caused by: biliary sludge building up and possibly acting as a stone. Other possible causes include repeat pancreatitis placing increased stress on the bile duct system and possible GERD leading to altered chemical environment in the abdomen; consider autoimmune hepatitis Pertinent labs: 04/08 AST 549, ALT 511, Alk Phos 205 and T. bili of 2.3 04/09 AST 435 ALT 498 Alk Phos 204 TBili 2.2 Fractionated TBili 1.5 Direct 0.7 Indirect Repeat 04/09 AST 365 ALT 478 Alk Phos 211 Abdominal US 04/08/25: 0.37 cm gallbladder wall with no edema 0.4 cm common bile duct and 16.8 cm fatty infiltration of the liver Hepatitis Panel 01/26/2025: Negative CTAP 01/26/25: irregular liver contour Plan: Potential autoimmune work-up for autoimmune hepatitis Continue to monitor for any acute changes Follow-up with morning labs #Hyperglycemia Patient presents with an elevated blood glucose of 172 Pertinent labs: 04/09 glucose 112 Last A1c on 01/26/2025 is 5.2% Patient is not on any diabetes medication Plan: Sliding scale insulin #GERD #History of gastric ulcer Patient complained of pain in the substernal and esophageal regions consistent with reflux. This can be secondary to abdominal stress from possible repeat inflammation of the gastrointestinal system, such as in pancreatitis and steatohepatitis. Patient is on omeprazole at home Plan: Continue IV Protonix 40 mg QD Health Maintenance: Lines: PIV Diet: NPO Bowel: Not needed at this time GI prophylaxis: IV Protonix 40 mg QD DVT prophylaxis: SCD Dispo: IV fluid resuscitation for acute pancreatitis and gastroenterology consulted, Dr. Knott Code: Full Case reviewed with attending Dr. Zamora and senior resident Dr. Carey. Sandy Cruz MS-4 - The patient's plan was discussed with attending Dr. Noah Carey MD PGY2 Internal Medicine Attending Provider Attestation/Addendum I have discussed and was present for the essential components of the history, physical examination, diagnosis, and treatment plan with the resident. I agree with the patient's care as documented by the resident and amended herein by me. Tyler Zamora MD. Although this document has been carefully reviewed, there may still be some phonetic and other typographical errors. These errors are purely grammatical due to imperfections in the software program and should not be construed in any way to compromise the substance of the patient's medical care during this visit.
--- NOTE | 2025-04-09 09:33 | PC.SS ---
Patient is a 34 year female who was brought in for acute pancreatitis. ?BALE STACKER made face to face contact with patient. BALE STACKER introduced self, role, and reason for visit. Pt. was alert and oriented to self, location, and situation. Pt. confirmed demographic information and reports that she lived at home with her mother, father, and . Pt. reports that her emergency contact is [phone]. Prior to visit to hospital pt. did not use any DME equipment and ambulates independently. Pt. reported that her current PCP is Dr. Benitez, her last appointment was in February/2025. Pt. pharmacy of choice is [facility] [address]. Once medically cleared transportation will be provided by her Alex Pearson ph:[phone]. PCP: Dr. Benitez Primary contact: Sean Peña, father, ph: [phone]. D/C: Home to family, transportation provided by Alex Pearson, ph:[phone].
[2025-04-09 09:56] LABS: Bilirubin,Direct 1.5 mg/dL (0.0-0.3); Bilirubin,Indirect 0.7 mg/dL (0.0-1.1)
[2025-04-09 10:57] LABS: Alanine Aminotransferase 478 U/L (10-49); Albumin, Serum 3.9 gm/dL (3.5-5.0); Albumin/Globulin Ratio 1.7 (1.2-2.2); Alkaline Phosphatase 211 U/L (46-116); Anion Gap 7 (7-16); Aspartate Amino Transferase 365 U/L (0-34); BUN/Creatinine Ratio 10 Ratio (12-20); Bilirubin,Total 2.1 mg/dL (0.3-1.2); Blood Urea Nitrogen 7 mg/dL (9-23); Calcium 8.7 mg/dL (8.3-10.6); Calcium (Corrected) 8.8 mg/dL (8.5-10.1); Carbon Dioxide 26.7 mMol/L (20.0-31.0); Chloride 106 mMol/L (98-107); Creatinine (Component) 0.7 mg/dL (0.6-1.3); Globulin 2.3 gm/dL (2.3-3.5); Glucose 96 mg/dL (74-106); Lipase 1277 U/L (12-53); Osmolality,Calculated 277 (275-295); Potassium 3.9 mMol/L (3.4-5.1); Sodium 140 mMol/L (136-145); Total Protein 6.2 gm/dL (5.7-8.2); eGFR > 60 See Note
[2025-04-09 11:50] VITALS: BP 129/76; PULSE 86; RESP 17; TEMP 36.4; O2SAT 95
[2025-04-09] MEDS: HYDROmorphone INJ 2 MG/ML VIAL 1 MG IVP ×2 (13:55→23:11)
--- NOTE | 2025-04-09 15:00 | PC.SS ---
Rounding note: Dr. Knott's reccommendations pending. Discharge plan: Home.
[2025-04-09 15:52] VITALS: BP 138/77; PULSE 92; RESP 17; TEMP 36.4; O2SAT 95
[2025-04-09 20:00] VITALS: BP 114/66; PULSE 92; RESP 16; TEMP 36.3; O2SAT 95
[2025-04-10] VITALS (7 sets, daily range): BP systolic 113–127; BP diastolic 71–95; PULSE 81–99; RESP 16–18; TEMP 36.1–36.4; O2SAT 94–98; BMI 39.9
[2025-04-10] MEDS: DEXTROSE 50%-WATER INJ 50 ML SYRINGE 25 ML IV (00:09)
[2025-04-10] MEDS: RINGERS LACTATED 1000 ML 1,000 ML 200 ML IV ×4 (04:45→22:23)
[2025-04-10 06:04] LABS: Misc Send Out* See Sep Rpt
[2025-04-10 06:10] LABS: Basophils # (Auto) 0.0 Thou/mm3 (0.0-0.2); Basophils % (Auto) 0 % (0-2.5); Eosinophils # (Auto) 0.1 Thou/mm3 (0.0-0.5); Eosinophils % (Auto) 1 % (0-10); Hematocrit 36.7 % (36.0-46.0); Hemoglobin 12.1 g/dL (12.0-16.0); Immature Granulocytes Auto 0.03 Thou/mm3 (0.00-0.00); Lymphocytes # (Auto) 0.9 Thou/mm3 (1.0-4.8); Lymphocytes % (Auto) 13 % (10-50); Mean Corpuscular HGB Conc 33.0 g/dl (31.0-37.0); Mean Corpuscular Hemoglobin 29.4 pg (25.0-35.0); Mean Corpuscular Volume 89 fL (80-100); Monocytes # (Auto) 0.5 Thou/mm3 (0.0-0.8); Monocytes % (Auto) 7 % (0-12); Neutrophils # (Auto) 5.8 Thou/mm3 (1.8-7.7); Neutrophils % (Auto) 79 % (37-80); Nucleated Red Blood Cell # 0.00 Thou/mm3 (0.00-0.00); Nucleated Red Blood Cell % 0 /100 WBC (0); Platelet Count 197 Thou/mm3 (140-440); RDW Standard Deviation 41.5 fL (36.4-46.3); Red Blood Count 4.11 Miln/mm3 (4.00-5.20); White Blood Count 7.4 Thou/mm3 (3.6-11.0)
[2025-04-10 06:56] LABS: Alanine Aminotransferase 316 U/L (10-49); Albumin, Serum 3.6 gm/dL (3.5-5.0); Albumin/Globulin Ratio 1.5 (1.2-2.2); Alkaline Phosphatase 192 U/L (46-116); Anion Gap 12 (7-16); Aspartate Amino Transferase 146 U/L (0-34); BUN/Creatinine Ratio 8 Ratio (12-20); Bilirubin,Total 0.9 mg/dL (0.3-1.2); Blood Urea Nitrogen < 5 mg/dL (9-23); Calcium 8.5 mg/dL (8.3-10.6); Calcium (Corrected) 8.8 mg/dL (8.5-10.1); Carbon Dioxide 22.8 mMol/L (20.0-31.0); Chloride 104 mMol/L (98-107); Creatinine (Component) 0.6 mg/dL (0.6-1.3); Estimated Creatinine Clearance 150.8 mL/min (>60); Globulin 2.4 gm/dL (2.3-3.5); Glucose 82 mg/dL (74-106); Magnesium 1.4 mg/dL (1.6-2.6); Osmolality,Calculated 273 (275-295); Phosphorous 2.5 mg/dL (2.4-5.1); Potassium 3.5 mMol/L (3.4-5.1); Sodium 139 mMol/L (136-145); Total Protein 6.0 gm/dL (5.7-8.2); eGFR > 60 See Note
--- NOTE | 2025-04-10 08:40 | ESPR_ITS ---
Documentation for date of: 04/10/25 Continue IV fluids, acute pancreatitis continues to improve. MRCP positive for stones. NO CBD dilation. General surgery consulted, Dr. Oliveira, appreciate recommendations. Concern for repeated acute pancreatitis with idiopathic in nature bedside cholethiasis. Patient may benefit from cholecystectomy, pending general surgery recommendations. Auto-immune panel pending. NO alcohol use. NO drug use. Subjective Subjective Interval history: Patient was seen and evaluated bedside today with an lead dental assistant (ID- [id number]). Patient continued to endorse epigastric, umbilical, and right upper quadrant pain. Queen sign was positive. Patient continued to endorse reflux symptoms, particularly in her throat. Patient denied nausea and vomiting. Patient stated that she had not had a bowel movement and stated that she feels like she does not need to have a bowel movement. MRCP demonstrated findings consistent with cholelithiasis, in addition to pancreatitis. Patient agreebale to surgery. Consulted general surgery, Dr. Oliveira, surgery possible for , appreciate recommendations. Exam Vital Signs Temp Pulse Resp BP Pulse Ox O2 Del Method 97.5 F 84 18 120/71 96 Room Air 04/10/25 07:30 04/10/25 07:30 04/10/25 07:30 04/10/25 07:30 04/10/25 07:30 04/10/25 07:30 Narrative Exam General Appearance: Alert & Oriented to person, place, time, and condition; well-nourished female who is lying in bed in moderate distress due to abdominal pain. HEENT: Skull symmetrical and atraumatic. Conjunctivae pink and moist. Pupils equal, round, reactive to light and accommodation (PERRL). External ear without lesion or discharge. Straight, nares patient, mucosa pink, no discharge. No thyroid nodule appreciated. No cervical lymphadenopathy. Cardio: Normal Rate and Rhythm with S1 and S2 heart sounds. No murmurs or extra heart sounds auscultated. No bruits on carotid auscultation. No peripheral edema or cyanosis. Lungs: Symmetric with good expansion. Chest and back non-tender. Breath sounds vesicular without crackles, wheezing or rhonchi Abdomen: Tender to palpation in the epigastric, umbilical, and right upper quadrant regions, positive Queen's sign; non-distended. Neuro: Alert, cooperative, oriented to person, place, and time. Speech clear. CN grossly intact. Upper motor strength 5/5 and Lower motor strength 5/5. Sensation intact. Objective Labs 04/11/25 04:37 04/11/25 04:37 Labs: Laboratory Results - last 24 hr 04/09/25 04/09/25 04/09/25 04:15 04:15 04:15 WBC RBC Hgb Hct MCV MCH MCHC RDW Std Deviation Plt Count Neut % (Auto) Lymph % (Auto) [place] % (Auto) Eos % (Auto) Baso % (Auto) Neut # (Auto) Lymph # (Auto) [place] # (Auto) Eos # (Auto) Baso # (Auto) Immature Gran # (Auto) Absolute Nucleated RBC Immature Gran % Nucleated RBC % Sodium Potassium Chloride Carbon Dioxide Anion Gap BUN Creatinine Estim Creat Clear Calc eGFR BUN/Creatinine Ratio Glucose Calculated Osmolality Calcium Corrected Calcium Phosphorus Magnesium Total Bilirubin Cancelled Direct Bilirubin 1.5 H Cancelled Indirect Bilirubin 0.7 Cancelled AST ALT Alkaline Phosphatase Total Protein Albumin Globulin Albumin/Globulin Ratio Lipase 04/09/25 04/10/25 10:20 04:41 WBC 7.4 RBC 4.11 Hgb 12.1 Hct 36.7 MCV 89 MCH 29.4 MCHC 33.0 RDW Std Deviation 41.5 Plt Count 197 Neut % (Auto) 79 Lymph % (Auto) 13 [place] % (Auto) 7 Eos % (Auto) 1 Baso % (Auto) 0 Neut # (Auto) 5.8 Lymph # (Auto) 0.9 L [place] # (Auto) 0.5 Eos # (Auto) 0.1 Baso # (Auto) 0.0 Immature Gran # (Auto) 0.03 H Absolute Nucleated RBC 0.00 Immature Gran % 0 Nucleated RBC % 0 Sodium 140 139 Potassium 3.9 3.5 Chloride 106 104 Carbon Dioxide 26.7 22.8 Anion Gap 7 12 BUN 7 L < 5 L Creatinine 0.7 0.6 Estim Creat Clear Calc Not Performed. 150.8 eGFR > 60 > 60 BUN/Creatinine Ratio 10 L 8 L Glucose 96 82 Calculated Osmolality 277 273 L Calcium 8.7 8.5 Corrected Calcium 8.8 8.8 Phosphorus 2.5 Magnesium 1.4 L Total Bilirubin 2.1 H 0.9 D Direct Bilirubin Indirect Bilirubin AST 365 H 146 H ALT 478 H 316 H Alkaline Phosphatase 211 H 192 H Total Protein 6.2 6.0 Albumin 3.9 3.6 Globulin 2.3 2.4 Albumin/Globulin Ratio 1.7 1.5 Lipase 1277 H* D Quality Measures Quality Measures none Assessment & Plan Assessment Current Active Medications: Generic Name Dose Route Start Last Admin Trade Name Freq PRN Reason Stop Dose Admin Acetaminophen 650 mg 04/08/25 22:37 Acetaminophen 325 Mg Tablet PO 05/08/25 22:36 Q6H PRN PAIN SCALE 1-3 (mild Hydrocodone Bitart/Acetaminophen 1 tab 04/09/25 09:42 Hydrocodone/Apap 5/325 Tablet PO 04/14/25 09:41 Q6HR PRN PAIN SCALE 4-6 (Moderate Dextrose 25 ml 04/08/25 23:19 04/10/25 00:09 Dextrose 50%-Water Inj 50 Ml Syringe IV 05/08/25 23:18 25 ml Q15MIN PRN Administration BG 50-70 responsive npo pt Dextrose 50 ml 04/08/25 23:19 Dextrose 50%-Water Inj 50 Ml Syringe IV 05/08/25 23:18 Q15MIN PRN BG <50 OR BG <70 & pt unresponsive Glucagon 1 mg 04/08/25 23:19 Glucagon Inj 1 Mg Vial IM Q15MIN PRN BG <70, and no IV access Hydromorphone HCl 1 mg 04/09/25 08:44 04/09/25 23:11 Hydromorphone Inj 2 Mg/Ml Vial IVP 04/14/25 08:43 1 mg Q4HR PRN Administration PAIN SCALE 7-10 (Severe Lactated Ringer's 1,000 mls @ 200 mls/hr 04/08/25 22:45 04/10/25 04:45 Lactated Ringers IV 05/08/25 22:44 200 mls/hr .Q5H LACHO Administration Magnesium Sulfate 2 gm in 50 mls @ 25 mls/hr 04/10/25 08:30 Magnesium Sulfate Ivpb IV 04/10/25 10:29 X1 ONE Insulin Human Lispro 0 unit 04/09/25 00:00 04/10/25 06:39 Insulin Lispro (Admelog) 1 Unit/0.01 Ml Unit SC 05/09/25 00:00 Not Given Q6HR LACHO Protocol Ondansetron HCl 4 mg 04/08/25 22:37 04/09/25 14:06 Ondansetron Inj 2 Mg/Ml Inj 2 Ml IVP 05/08/25 22:36 4 mg Q6H PRN Administration NAUSEA OR VOMITING Protocol Pantoprazole Sodium 40 mg 04/09/25 09:00 04/10/25 08:31 Pantoprazole Inj 40 Mg Vial IVP 05/09/25 08:59 40 mg QDAY LACHO Administration Plan Plan 34-year-old female with past medical history of gastric ulcer, biliary dyskinesia, symptomatic hypotension during in the past presenting to the ED with abdominal pain was admitted for acute pancreatitis, currently unknown cause. Patient currently NPO on IV fluids with gastroenterology consult to Dr. Knott placed. #Acute Pancreatitis, likely due to cholelithiasis #History of Idiopathic Acute Pancreatitis 01/2025 Patient endorses abdominal pain consistent with pancreatitis- epigastric, umbilical, and right upper quadrant pain radiating to the back Of note, patient has similar presentation in the past 01/2025, possible causes: idiopathic since the patient has no known risk factors, such as medication, diet, high lipid values, or alcohol usage; biliary abnormalities, such as a passed gallstone, but no stone documented on most recent abdominal ultrasound; autoimmune is a possibility given that no direct cause has been found until now, work-up pending Pertinent labs 04/08: Lipase 4125 TG 88 TC 164 HDL 58 LDL 88 04/[address] abdomen pelvis 04/08: findings consistent with acute pancreatitis and cholelithiasis Ultrasound of the abdomen 04/08 showed gallbladder sludge negative for cholelithiasis, pancreatic head 3.7 cm MRCP 04/09 demonstrated findings consistent with cholelithiasis (multiple gallstones), gallbladder wall 4mm Plan: Possible cholecystectomy due to gallstone pancreatitis General Surgery, Dr. Oliveira consulted, possible cholecystectomy , appreciate recommendations ADAM & IgG4 ordered, pending results IV fluid resuscitation with LR 200 ml/hour Multimodal pain management, including starting IV Dilaudid 1 g Q4HR PRN and [place] 1 tab Q6HR PRN Gastroenterology consulted, Dr. Knott, appreciate recommendations #Elevated liver enzymes #Hyperbilirubinemia Patient complains of right upper quadrant pain, while CT abdomen and Gallbladder US differed on cholelithiasis. Elevated liver enzymes can be caused by: biliary sludge building up and possibly acting as a stone. Other possible causes include repeat pancreatitis placing increased stress on the bile duct system and possible GERD leading to altered chemical environment in the abdomen; consider autoimmune hepatitis Pertinent labs: 04/08 AST 549, ALT 511, Alk Phos 205 and T. bili of 2.3 04/09 AST 435 ALT 498 Alk Phos 204 TBili 2.2 Fractionated TBili 1.5 Direct 0.7 Indirect Repeat 04/09 AST 365 ALT 478 Alk Phos 211 04/10 AST 146 ALT 316 Alk Phos 192 TBili 0.9 Abdominal US 04/08/25: 0.37 cm gallbladder wall with no edema 0.4 cm common bile duct and 16.8 cm fatty infiltration of the liver Hepatitis Panel 01/26/2025: Negative CTAP 01/26/25: irregular liver contour Plan: Potential autoimmune work-up for autoimmune hepatitis Continue to monitor for any acute changes Follow-up with morning labs #Hyperglycemia, resolved Patient presents with an elevated blood glucose of 172 Pertinent labs: 04/09 glucose 112 04/10 glucose 82 FSBG 83 Last A1c on 01/26/2025 is 5.2% Patient is not on any diabetes medication Plan: Sliding scale insulin #GERD #History of gastric ulcer Patient complained of pain in the substernal and esophageal regions consistent with reflux. This can be secondary to abdominal stress from possible repeat inflammation of the gastrointestinal system, such as in pancreatitis and steatohepatitis. Patient is on omeprazole at home Plan: Continue IV Protonix 40 mg QD Health Maintenance: Lines: PIV Diet: clear liquid Bowel: Not needed at this time GI prophylaxis: IV Protonix 40 mg QD DVT prophylaxis: SCD Dispo: IV fluid resuscitation for acute pancreatitis and gastroenterology consulted, Dr. Knott and Dr. Oliveira, general surgery Code: Full Case reviewed with attending Dr. Zamora and senior resident Dr. Carey. Sandy Cruz MS-4 - The patient's plan was discussed with attending Dr. David Carey MD PGY2 Internal Medicine Attending Provider Attestation/Addendum I have examined the patient, reviewed labs and imaging findings, discussed the case with the resident(s), and reviewed entered orders. I agree with the plan of care as outlined in this note, with these additional summaries/recommendations: Patient seen at bedside. No acute overnight events. She endorses improvement in abdominal pain. Patient was found to have acute pancreatitis on admission possibly secondary to gallstones. Continue pain management and decrease IV fluids as we advance diet. Hyperbilirubinemia, transaminitis, and elevated alkaline phosphatase improving. Consult surgery for possible cholecystectomy. Autoimmune workup pending. Mild hypomagnesia present and replacement given. Some hyperglycemia noted with no evidence of diabetes mellitus type 2 although we will continue insulin sliding scale for blood sugar control. A1c 5.2%. Patient updated on the plan and in agreement. All questions answered satisfaction. Please see residents note for additional details and management. Dr. David MD
[2025-04-10] MEDS: Magnesium Sulfate 2 GM Ivpb 2 GM/50 ML BAG IV (08:42)
[2025-04-10] MEDS: HYDROmorphone INJ 2 MG/ML VIAL 1 MG IVP (08:43)
[2025-04-10] MEDS: HYDROcodone/APAP 5/325 TABLET 1 TAB PO ×2 (12:37→18:58)
--- NOTE | 2025-04-10 13:10 | PC.SS ---
Rounding: Pt receiving IV Fluids
[2025-04-11] VITALS (14 sets, daily range): BP systolic 108–144; BP diastolic 64–91; PULSE 61–98; RESP 13–96; TEMP 36.2–37.2; O2SAT 92–100
[2025-04-11] MEDS: RINGERS LACTATED 1000 ML 1,000 ML 200 ML IV ×2 (02:44→08:56)
[2025-04-11 05:27] LABS: Basophils # (Auto) 0.0 Thou/mm3 (0.0-0.2); Basophils % (Auto) 0 % (0-2.5); Eosinophils # (Auto) 0.2 Thou/mm3 (0.0-0.5); Eosinophils % (Auto) 3 % (0-10); Hematocrit 35.6 % (36.0-46.0); Hemoglobin 11.8 g/dL (12.0-16.0); Immature Granulocytes Auto 0.03 Thou/mm3 (0.00-0.00); Lymphocytes # (Auto) 1.2 Thou/mm3 (1.0-4.8); Lymphocytes % (Auto) 17 % (10-50); Mean Corpuscular HGB Conc 33.1 g/dl (31.0-37.0); Mean Corpuscular Hemoglobin 29.7 pg (25.0-35.0); Mean Corpuscular Volume 90 fL (80-100); Monocytes # (Auto) 0.6 Thou/mm3 (0.0-0.8); Monocytes % (Auto) 9 % (0-12); Neutrophils # (Auto) 5.1 Thou/mm3 (1.8-7.7); Neutrophils % (Auto) 71 % (37-80); Nucleated Red Blood Cell # 0.00 Thou/mm3 (0.00-0.00); Nucleated Red Blood Cell % 0 /100 WBC (0); Platelet Count 177 Thou/mm3 (140-440); RDW Standard Deviation 42.1 fL (36.4-46.3); Red Blood Count 3.97 Miln/mm3 (4.00-5.20); White Blood Count 7.2 Thou/mm3 (3.6-11.0)
[2025-04-11 05:57] LABS: Alanine Aminotransferase 226 U/L (10-49); Albumin, Serum 3.7 gm/dL (3.5-5.0); Albumin/Globulin Ratio 1.5 (1.2-2.2); Alkaline Phosphatase 181 U/L (46-116); Anion Gap 9 (7-16); Aspartate Amino Transferase 71 U/L (0-34); BUN/Creatinine Ratio 7 Ratio (12-20); Bilirubin,Total 0.6 mg/dL (0.3-1.2); Blood Urea Nitrogen < 5 mg/dL (9-23); Calcium 8.7 mg/dL (8.3-10.6); Calcium (Corrected) 8.9 mg/dL (8.5-10.1); Carbon Dioxide 24.8 mMol/L (20.0-31.0); Chloride 107 mMol/L (98-107); Creatinine (Component) 0.7 mg/dL (0.6-1.3); Estimated Creatinine Clearance 126.8 mL/min (>60); Globulin 2.5 gm/dL (2.3-3.5); Glucose 94 mg/dL (74-106); Magnesium 1.5 mg/dL (1.6-2.6); Osmolality,Calculated 278 (275-295); Phosphorous 2.1 mg/dL (2.4-5.1); Potassium 3.8 mMol/L (3.4-5.1); Sodium 141 mMol/L (136-145); Total Protein 6.2 gm/dL (5.7-8.2); eGFR > 60 See Note
--- NOTE | 2025-04-11 06:18 | PD.SURCONS ---
HPI Consult details Consult date: 04/11/25 Reason for consultation narrative: Gallstone pancreatitis History of present illness: 34 years old female with history of PUD and hiatal hernia repair in [place] was admitted with abdominal pain, nausea or vomiting. Her symptoms started few days ago in the epigastric and right upper quadrant radiated to her back. She has significant elevation of lipase, ultrasound revealed gallbladder sludge, CT scan revealed cholelithiasis with acute pancreatitis, MRCP revealed gallstones and acute pancreatitis without CBD stones. She was admitted with similar symptoms in January, however during that hospitalization imaging studies did not show gallstones, she was managed conservatively and was discharged. Review of Systems Constitutional Constitutional: Denies chills and Denies fever(s) Cardiovascular Cardiovascular: Denies chest pain Respiratory Respiratory: Denies cough Gastrointestinal Gastrointestinal: Reports abdominal pain, Reports nausea and Reports vomiting Genitourinary Genitourinary: Denies difficulty voiding Hematologic/Lymphatic Hematologic/Lymphatic: Denies easy bleeding and Denies easy bruising Past Medical History Surgical History OTHER SURGICAL HX: Laparoscopic appendectomy, laparoscopic hiatal hernia repair Social History SMOKING STATUS: Never smoker SUBSTANCE USE: does not use ALCOHOL: Never Meds Home Medications and Allergies Home Medications ?Medication ?Instructions ?Recorded ?Confirmed ?Type ondansetron HCl 4 mg tablet 4 mg PO Q12H PRN nausea and 01/26/25 04/09/25 History vomiting sucralfate 1 gram tablet 1 g PO BID 01/26/25 04/09/25 History pantoprazole 40 mg tablet,delayed 40 mg PO Q12H 04/09/25 04/09/25 History release Allergies Allergy/AdvReac Type Severity Reaction Status Date / Time No Known Allergies Allergy Verified 04/08/25 18:02 Exam Vital Signs Temp Pulse Resp BP Pulse Ox O2 Del Method 97.1 F 73 18 108/69 97 Room Air 04/11/25 04:00 04/11/25 04:00 04/11/25 04:00 04/11/25 04:00 04/11/25 04:00 04/11/25 04:00 Constitutional Constitutional: no acute distress Routine HEENT Exam Eye: Present PERRL (Anicteric sclera) Routine Abdominal Exam Abdominal: Present soft, normoactive bowel sounds and tenderness (Epigastric and right upper quadrant tenderness to palpation with guarding, no rebound tenderness or peritonitis at this time); Absent distended Results Results: Laboratory Laboratory results: results reviewed Results: Imaging Imaging narrative: Abdominal ultrasound, CT scan of abdomen pelvis and MRCP images reviewed, radiologist interpretation noted Assessment & Plan Problem List (1) Biliary acute pancreatitis without necrosis or infection: Status: Acute Plan Patient is on clear liquids however she is still having epigastric and right upper quadrant pain likely related to pancreatitis. Once pancreatitis is improved we will plan for laparoscopic possible open cholecystectomy with cholangiogram. Risks include but not limited to infection, bleeding, injury to liver, stomach, bile duct, retained stone, bile leak, abdominal sepsis and or abdominal abscess, need for further procedure and or operation discussed with the patient. All her questions answered, she agreed and consented to proceed with the operation.
[2025-04-11] MEDS: HYDROcodone/APAP 5/325 TABLET 1 TAB PO (06:50)
[2025-04-11] MEDS: Magnesium Sulfate 4 GM Ivpb 4 GM/50 ML BAG IV (08:57)
--- NOTE | 2025-04-11 09:00 | PD.RESPRO ---
Documentation for date of: 04/11/25 No overnight events. Paitnet examined at bedside. Patient is pending cholecystectomy given concern for gallstone pancreatitis as this is patient's second admission with similar problem with Dr. Oliveira. Traci NPO, plan for surgical intervention today or Tt. Continue pain management. Pending auto-immune work up. Subjective Subjective Interval history: Patient was seen and evaluated today at bedside today. Patient continued to endorse sharp abdominal pain, namely in the epigastric and right upper quadrant regions. On examination, Queen's sign was positive. Patient continued to endorse reflux-like symptoms and remains on IV protonix 40 mg QD. Patient denied nausea and vomiting. Patient acknowledged one bowel movement this morning of solid consistency in coffee color and no blood in the stool. Patient did not have any pain with her bowel movement. Patient acknowledged that she spoke with general surgery today, Dr. Oliveira. Laparascopic Cholecystectomy completed today without complication. Per gastroenterelogy, Dr. Knott, check CRP. Exam Vital Signs Temp Pulse Resp BP Pulse Ox O2 Del Method 98.3 F 86 15 111/64 98 Room Air 04/11/25 07:35 04/11/25 07:35 04/11/25 07:35 04/11/25 07:35 04/11/25 07:35 04/11/25 07:35 Narrative Exam General Appearance: Alert & Oriented to person, place, time, and condition; well-nourished female who is lying in bed in moderate distress due to abdominal pain. HEENT: Skull symmetrical and atraumatic. Conjunctivae pink and moist. Pupils equal, round, reactive to light and accommodation (PERRL). External ear without lesion or discharge. Straight, nares patient, mucosa pink, no discharge. No thyroid nodule appreciated. No cervical lymphadenopathy. Cardio: Normal Rate and Rhythm with S1 and S2 heart sounds. No murmurs or extra heart sounds auscultated. No bruits on carotid auscultation. No peripheral edema or cyanosis. Lungs: Symmetric with good expansion. Chest and back non-tender. Breath sounds vesicular without crackles, wheezing or rhonchi Abdomen: Tender to palpation in the epigastric, umbilical, and right upper quadrant regions; no rebound or guarding; non-distended Neuro: Alert, cooperative, oriented to person, place, and time. Speech clear. CN grossly intact. Upper motor strength 5/5 and Lower motor strength 5/5. Sensation intact. Objective Labs 04/12/25 04:35 04/12/25 04:35 Labs: Laboratory Results - last 24 hr 04/11/25 04:37 WBC 7.2 RBC 3.97 L Hgb 11.8 L Hct 35.6 L MCV 90 MCH 29.7 MCHC 33.1 RDW Std Deviation 42.1 Plt Count 177 Neut % (Auto) 71 Lymph % (Auto) 17 [place] % (Auto) 9 Eos % (Auto) 3 Baso % (Auto) 0 Neut # (Auto) 5.1 Lymph # (Auto) 1.2 [place] # (Auto) 0.6 Eos # (Auto) 0.2 Baso # (Auto) 0.0 Immature Gran # (Auto) 0.03 H Absolute Nucleated RBC 0.00 Immature Gran % 0 Nucleated RBC % 0 Sodium 141 Potassium 3.8 Chloride 107 Carbon Dioxide 24.8 Anion Gap 9 BUN < 5 L Creatinine 0.7 Estim Creat Clear Calc 126.8 eGFR > 60 BUN/Creatinine Ratio 7 L Glucose 94 Calculated Osmolality 278 Calcium 8.7 Corrected Calcium 8.9 Phosphorus 2.1 L Magnesium 1.5 L Total Bilirubin 0.6 AST 71 H ALT 226 H Alkaline Phosphatase 181 H Total Protein 6.2 Albumin 3.7 Globulin 2.5 Albumin/Globulin Ratio 1.5 Quality Measures Quality Measures none Assessment & Plan Assessment Current Active Medications: Generic Name Dose Route Start Last Admin Trade Name Zackeryq PRN Reason Stop Dose Admin Acetaminophen 650 mg 04/08/25 22:37 Acetaminophen 325 Mg Tablet PO 05/08/25 22:36 Q6H PRN PAIN SCALE 1-3 (mild Hydrocodone Bitart/Acetaminophen 1 tab 04/09/25 09:42 04/11/25 06:50 Hydrocodone/Apap 5/325 Tablet PO 04/14/25 09:41 1 tab Q6HR PRN Administration PAIN SCALE 4-6 (Moderate Dextrose 25 ml 04/08/25 23:19 04/10/25 00:09 Dextrose 50%-Water Inj 50 Ml Syringe IV 05/08/25 23:18 25 ml Q15MIN PRN Administration BG 50-70 responsive npo pt Dextrose 50 ml 04/08/25 23:19 Dextrose 50%-Water Inj 50 Ml Syringe IV 05/08/25 23:18 Q15MIN PRN BG <50 OR BG <70 & pt unresponsive Glucagon 1 mg 04/08/25 23:19 Glucagon Inj 1 Mg Vial IM Q15MIN PRN BG <70, and no IV access Hydromorphone HCl 1 mg 04/09/25 08:44 04/10/25 08:43 Hydromorphone Inj 2 Mg/Ml Vial IVP 04/14/25 08:43 1 mg Q4HR PRN Administration PAIN SCALE 7-10 (Severe Lactated Ringer's 1,000 mls @ 200 mls/hr 04/08/25 22:45 04/11/25 08:56 Lactated Ringers IV 05/08/25 22:44 200 mls/hr .Q5H LACHO Administration Potassium Phosphate 22.5 mmol/ 507.5 mls @ 82.778 mls/hr 04/11/25 07:44 Sodium Chloride IV 04/11/25 13:51 X1 ONE Magnesium Sulfate 4 gm in 50 mls @ 12.5 mls/hr 04/11/25 08:31 04/11/25 08:57 Magnesium Sulfate Ivpb IV 04/11/25 12:30 12.5 mls/hr X1 ONE Administration Insulin Human Lispro 0 unit 04/09/25 00:00 04/11/25 06:18 Insulin Lispro (Admelog) 1 Unit/0.01 Ml Unit SC 05/09/25 00:00 Not Given Q6HR LACHO Protocol Ondansetron HCl 4 mg 04/08/25 22:37 04/09/25 14:06 Ondansetron Inj 2 Mg/Ml Inj 2 Ml IVP 05/08/25 22:36 4 mg Q6H PRN Administration NAUSEA OR VOMITING Protocol Pantoprazole Sodium 40 mg 04/09/25 09:00 04/11/25 08:56 Pantoprazole Inj 40 Mg Vial IVP 05/09/25 08:59 40 mg QDAY LACHO Administration Plan Plan 34-year-old female with past medical history of gastric ulcer, biliary dyskinesia, symptomatic hypotension during in the past presenting to the ED with abdominal pain was admitted for acute pancreatitis, likely due to gallstones. Patient currently NPO on IV fluids. Laparascopic cholecystectomy completed today without complication, general surgery, Dr. Oliveira. Follow-up with gastroenterology 2-4 weeks after discharge, per Dr. Knott. #Acute Pancreatitis, likely due to cholelithiasis #History of Idiopathic Acute Pancreatitis 01/2025 Patient endorses abdominal pain consistent with pancreatitis- epigastric, umbilical, and right upper quadrant pain radiating to the back Of note, patient has similar presentation in the past 01/2025, possible causes: idiopathic since the patient has no known risk factors, such as medication, diet, high lipid values, or alcohol usage; biliary abnormalities, such as a passed gallstone, but no stone documented on most recent abdominal ultrasound; autoimmune is a possibility given that no direct cause has been found until now, work-up pending Pertinent labs 04/08: Lipase 4125 TG 88 TC 164 HDL 58 LDL 88 04/[address] abdomen pelvis 04/08: findings consistent with acute pancreatitis and cholelithiasis Ultrasound of the abdomen 04/08 showed gallbladder sludge negative for cholelithiasis, pancreatic head 3.7 cm MRCP 04/09 demonstrated findings consistent with cholelithiasis (multiple gallstones), gallbladder wall 4mm Plan: General Surgery, Dr. Oliveira consulted, laparascopic cholecystectomy completed today without complication, general surgery, Dr. Oliveira, appreciate recommendations IV fluid resuscitation with LR 150 ml/hour and follow-up 2-4 weeks after discharge per gastroenterology, Dr. Knott, appreciate recommendations ADAM & IgG4 ordered, pending results IV fluid resuscitation with LR 150 ml/hour, per gastroenterology, Dr. Knott, appreciate recommendations Multimodal pain management, including starting IV Dilaudid 1 g Q4HR PRN and [place] 1 tab Q6HR PRN #Elevated liver enzymes #Hyperbilirubinemia Patient complains of right upper quadrant pain, while CT abdomen and Gallbladder US differed on cholelithiasis. Elevated liver enzymes can be caused by: biliary sludge building up and possibly acting as a stone. Other possible causes include repeat pancreatitis placing increased stress on the bile duct system and possible GERD leading to altered chemical environment in the abdomen; consider autoimmune hepatitis Pertinent labs: 04/08 AST 549, ALT 511, Alk Phos 205 and T. bili of 2.3 04/09 AST 435 ALT 498 Alk Phos 204 TBili 2.2 Fractionated TBili 1.5 Direct 0.7 Indirect Repeat 04/09 AST 365 ALT 478 Alk Phos 211 04/10 AST 146 ALT 316 Alk Phos 192 TBili 0.9 04/11 AST 71 ALT 286 Alk Phos 181 TBili 0.6 Abdominal US 04/08/25: 0.37 cm gallbladder wall with no edema 0.4 cm common bile duct and 16.8 cm fatty infiltration of the liver Hepatitis Panel 01/26/2025: Negative CTAP 01/26/25: irregular liver contour Plan: Potential autoimmune work-up for autoimmune hepatitis Continue to monitor for any acute changes Follow-up with morning labs #Hypophosphatemia #Hypomagnesemia Patient with pancreatitis is susceptible to electrolyte abnormalities like hypophosphatemia due to: metabolic derangements caused by dysfunction in cellular enzymatic functions in the pancreas, lack of nutrients due to not eating, and impaired digestion hindering nutrient absorption in the intestines and filtration in the kidneys. In addition, magnesium is important for cellular function and is a cofactor for ATP-dependent enzymes in the body, such as those in the pancreas. Pertinent labs: 04/11 Phosphate 2.1 Magnesium 1.5 Patient given 22.5 mmol/l KPhos and Magnesium 4 gm IVx1 Plan: -Monitor renal panel #Hyperglycemia, resolved Patient presents with an elevated blood glucose of 172 Pertinent labs: 04/09 glucose 112 04/10 glucose 82 FSBG 83 04/11 glucose 94 FSBG 87 Last A1c on 01/26/2025 is 5.2% Patient is not on any diabetes medication Plan: Sliding scale insulin #GERD #History of gastric ulcer Patient complained of pain in the substernal and esophageal regions consistent with reflux. This can be secondary to abdominal stress from possible repeat inflammation of the gastrointestinal system, such as in pancreatitis and steatohepatitis. Patient is on omeprazole at home Plan: Continue IV Protonix 40 mg QD Health Maintenance: Lines: PIV Diet: clear liquid Bowel: Not needed at this time GI prophylaxis: IV Protonix 40 mg QD DVT prophylaxis: SCD Dispo: IV fluid resuscitation for acute pancreatitis and general surgery, Dr. Oliveira consulted, plan for 04/12 cholecystectomy Code: Full Case reviewed with attending Dr. Zamora and senior resident Dr. Carey. Sandy Cruz MS-4 - The patient's plan was discussed with attending Dr. David Carey MD PGY2 Internal Medicine Attending Provider Attestation/Addendum I have examined the patient, reviewed labs and imaging findings, discussed the case with the resident(s), and reviewed entered orders. I agree with the plan of care as outlined in this note, with these additional summaries/recommendations: Patient seen at bedside. No acute overnight events. Patient endorses moderate to severe abdominal pain this morning which significantly improved by afternoon. Patient was found to have acute pancreatitis on admission likely secondary to gallstones. Continue pain management and decrease IV fluids as we advance diet. Hyperbilirubinemia, transaminitis, and elevated alkaline phosphatase improving. Surgery consulted with plans for cholecystectomy once patient is more improved. Autoimmune workup pending. Mild hypomagnesia present and replacement given. Some hyperglycemia noted with no evidence of diabetes mellitus type 2 although we will continue insulin sliding scale for blood sugar control. A1c 5.2%. Patient updated on the plan and in agreement. All questions answered satisfaction. Please see residents note for additional details and management. Dr. David MD
[2025-04-11] MEDS: POTASSIUM PHOS 22.5 MMOL in SODIUM CHLORIDE 0.9% 500 ML 500 ML 82.778 MMOL IV (09:21)
[2025-04-11 10:33] LABS: C-Reactive Protein > 10.0 mg/dL (0.0-0.9)
--- NOTE | 2025-04-11 13:45 | XR_ITS ---
Examination: Operative angiogram single view Date and time: April 11, 2025 1420 hours INDICATIONS: Status post cholecystectomy TECHNIQUE AND FINDINGS: Contrast projects outside the biliary system, no diagnostic visualization of the common hepatic or common bile duct IMPRESSION: No diagnostic visualization of the common hepatic or common bile duct
[2025-04-11 14:06] LABS: HCG,Qualitative Serum Negative
--- NOTE | 2025-04-11 14:47 | PC.SS ---
Rounding: Plan for sx with Dr. Oliveira today, DC plan home when stable for DC
--- NOTE | 2025-04-11 14:49 | PD.SUROPNT ---
Date of Procedure 04/11/25 Pre Op Diagnosis Gallstone pancreatitis Post Op Diagnosis Cholelithiasis with cholecystitis Procedure Laparoscopic cholecystectomy with attempted intraoperative cholangiogram Findings Moderately distended gallbladder with multiple small gallstones and chronic cholecystitis. Fatty liver. Procedure Description Patient was brought into the operating room in supine position. After administration of general endotracheal anesthesia abdomen was prepped and draped in standard surgical manner. A Veress needle was inserted through the umbilicus and pneumoperitoneum was obtained up to 15 mmHg. The Veress needle was then removed, a 5 mm infraumbilical incision was made and the 5mm trocar was inserted. Laparoscopic camera was placed. Under direct visualization a laparoscopic camera a 10 mm trocar was placed in subxiphoid and two 5 mm trocars placed in right upper quadrant. The liver was fatty in appearance. The gallbladder was identified and was noted to be moderately distended. It was retracted cephalad and laterally. Dissection started near the infundibulum of gallbladder where cystic duct and gallbladder junction clearly identified. The cystic duct was circumferentially dissected off the peritoneum and surrounding inflammatory tissue. The critical view of safety was clearly demonstrated. An Endo Clip placed near the cystic duct and gallbladder junction and a small ductotomy was performed. Cholangiogram catheter was placed through the ductotomy site and cholangiogram x-ray was obtained. X-ray revealed leaking of contrast around the cystic duct. After multiple attempts and position changes I was unable to clearly obtain a good seal around the cystic duct. Because patient had an MRCP that did not show evidence of CBD stone I elected not to pursue cholangiogram any further. The catheter was removed and the cystic duct was divided between 2 endoclips proximally and one distally. The cystic artery was then divided between 2 endoclips proximally and 1 distally. The gallbladder was then from the liver bed using electrocautery. The gallbladder was then placed inside an Endo Catch and removed from the abdomen utilizing subxiphoid trocar site. The area was copiously and thoroughly washed and irrigated, all the fluid was suctioned and the suction fluid returned clear. Hemostasis achieved using electrocautery. Endoclips noted be in place and intact without any bleeding or any leakage. Hemostasis was adequate and satisfactory. The subxiphoid trocar sites fascial defect was closed with 0 Vicryl using Endo Closure device. Instruments and trocars removed, pneumoperitoneum was evacuated and the incisions closed with 4-0 Monocryl in subcuticular fashion. Instrument needle and sponge counts were all reported to be correct X2. Patient tolerated the procedure well, was extubated, breathing spontaneously and without difficulty and was transferred to postanesthesia care in stable condition. Anesthesia GETA and local Pathology / specimen Other (Gallbladder and contents) Estimated Blood Loss 25 Condition Stable Disposition PACU Surgeon Raj Oliveira MD Surgical Staff Operation Date: 04/11/25 16:00 Case Staff Anesthesiologist: Satish Power RNtree climber: Isabel Horan
--- NOTE | 2025-04-11 15:47 | PD.IMCONS ---
HPI Data of Consult Requesting Physician: Munir Ames MD Primary Care Provider: Physician No Primary/Family Consult Narrative History of present illness: Chief complaint: Epigastric and right upper quadrant abdominal pain History of presenting illness: Patient is a 34-year-old female with history of peptic ulcer disease presented with epigastric and right upper quadrant abdominal pain had a complete workup done showed cholelithiasis with no evidence of choledocholithiasis and acute pancreatitis, patient had a similar episode back in January 2025 was hospitalized for the same reason. Patient was seen and examined today patient had undergone cholecystectomy. Patient endorses abdominal pain. In no acute distress had tolerated clear liquids up to full liquid diet prior to cholecystectomy. No other associated symptoms at this point. cc:: cc: Munir Ames MD Review of Systems Review of Systems Narrative Review of Systems: 12 points of review of systems reviewed and negative except positive pertinent symptoms and history of presenting illness. Meds Home Medications and Allergies Home Medications ?Medication ?Instructions ?Recorded ?Confirmed ?Type ondansetron HCl 4 mg tablet 4 mg PO Q12H PRN nausea and 01/26/25 04/09/25 History vomiting sucralfate 1 gram tablet 1 g PO BID 01/26/25 04/09/25 History pantoprazole 40 mg tablet,delayed 40 mg PO Q12H 04/09/25 04/09/25 History release Allergies Allergy/AdvReac Type Severity Reaction Status Date / Time No Known Allergies Allergy Verified 04/11/25 15:22 Exam Vital Signs Temp Pulse Resp BP Pulse Ox O2 Del Method O2 Flow Rate 97.3 F 88 18 122/75 100 Room Air 3 04/11/25 15:00 04/11/25 15:00 04/11/25 15:00 04/11/25 15:00 04/11/25 15:00 04/11/25 07:35 04/11/25 15:00 Routine Abdominal Exam Comments: Abdominal exam benign except tenderness at site after surgery abdomen soft no sign of peritonitis no sign of rebound tenderness. Results Labs 04/11/25 04:37 04/11/25 04:37 Labs: Short CBC 04/11/25 Range/Units 04:37 WBC 7.2 (3.6-11.0) Thou/mm3 Hgb 11.8 L (12.0-16.0) g/dL Hct 35.6 L (36.0-46.0) % Plt Count 177 (140-440) Thou/mm3 BMP 04/11/25 04:37 Sodium 141 Potassium 3.8 Chloride 107 Carbon Dioxide 24.8 BUN < 5 L Creatinine 0.7 Glucose 94 Calcium 8.7 Liver Function 04/11/25 Range/Units 04:37 Total Bilirubin 0.6 (0.3-1.2) mg/dL AST 71 H (0-34) U/L ALT 226 H (10-49) U/L Alkaline Phosphatase 181 H (46-116) U/L Albumin 3.7 (3.5-5.0) gm/dL Assessment and Plan Additional Assessment & Plan Additional Plan: Assessment: Recurrent pancreatitis Most likely gallstone pancreatitis Cholelithiasis s/p cholecystectomy No evidence of choledocholithiasis CRP elevated greater than 10 Plan of care: Obtain MRI with and without contrast (MRI pancreatic protocol) tomorrow Hydrate with LR 150 Check CRP daily Follow ordered labs including IgG4 and IgG subclasses No need to trend lipase Start with clear liquid diet and advance as per toleration We can discharge the patient as patient tolerates diet Patient needs to follow-up with Dr. Knott's office 2 to 4 weeks postdischarge GI will sign off call GI with any questions.
[2025-04-11] MEDS: RINGERS LACTATED 1000 ML 1,000 ML 80 ML IV (16:13)
--- NOTE | 2025-04-11 16:27 | SUR.PHASEI ---
1500: Pt received in [facility] via gurney. Report from Macarena FUCH[facility] and Dr. Power. Pt groggy. Easily aroused. Resp even, unlabored. VS stable. Surgical sites x4 to abdomen secured with dermabond. Sites without swelling, discoloration. 1505: Pt has c/o pain to abdomen. Anesthesia provided pain medication. 1520: Pt resting with no further complaints. Resp even, unlabored. VS stable. Surgical sites remain dry, clean, intact with no swelling, discoloration. 1535: Report to Heidy FUCHS. 1538: Pt transferred to 350 in stable condition.
[2025-04-11] MEDS: HYDROmorphone INJ 2 MG/ML VIAL 1 MG IVP ×2 (18:00→23:39)
[2025-04-11] MEDS: DOCUSATE SOD 100 MG CAPSULE PO (20:19)
[2025-04-12] VITALS: BP 129/82; PULSE 77; RESP 22; TEMP 36.6; O2SAT 93
[2025-04-12 04:00] VITALS: BP 116/64; PULSE 57; PULSE 98; RESP 18; TEMP 36.5; O2SAT 95
[2025-04-12] MEDS: RINGERS LACTATED 1000 ML 1,000 ML 80 ML IV (04:16)
[2025-04-12 06:26] LABS: Basophils # (Auto) 0.0 Thou/mm3 (0.0-0.2); Basophils % (Auto) 0 % (0-2.5); Eosinophils # (Auto) 0.0 Thou/mm3 (0.0-0.5); Eosinophils % (Auto) 0 % (0-10); Hematocrit 39.6 % (36.0-46.0); Hemoglobin 13.0 g/dL (12.0-16.0); Immature Granulocytes Auto 0.04 Thou/mm3 (0.00-0.00); Lymphocytes # (Auto) 0.6 Thou/mm3 (1.0-4.8); Lymphocytes % (Auto) 7 % (10-50); Mean Corpuscular HGB Conc 32.8 g/dl (31.0-37.0); Mean Corpuscular Hemoglobin 29.5 pg (25.0-35.0); Mean Corpuscular Volume 90 fL (80-100); Monocytes # (Auto) 0.3 Thou/mm3 (0.0-0.8); Monocytes % (Auto) 3 % (0-12); Neutrophils # (Auto) 8.1 Thou/mm3 (1.8-7.7); Neutrophils % (Auto) 90 % (37-80); Nucleated Red Blood Cell # 0.00 Thou/mm3 (0.00-0.00); Nucleated Red Blood Cell % 0 /100 WBC (0); Platelet Count 240 Thou/mm3 (140-440); RDW Standard Deviation 42.0 fL (36.4-46.3); Red Blood Count 4.40 Miln/mm3 (4.00-5.20); White Blood Count 9.0 Thou/mm3 (3.6-11.0)
[2025-04-12 06:43] LABS: Alanine Aminotransferase 198 U/L (10-49); Albumin, Serum 4.2 gm/dL (3.5-5.0); Albumin/Globulin Ratio 1.4 (1.2-2.2); Alkaline Phosphatase 188 U/L (46-116); Anion Gap 12 (7-16); Aspartate Amino Transferase 79 U/L (0-34); BUN/Creatinine Ratio 8 Ratio (12-20); Bilirubin,Total 0.4 mg/dL (0.3-1.2); Blood Urea Nitrogen < 5 mg/dL (9-23); Calcium 9.2 mg/dL (8.3-10.6); Calcium (Corrected) 9.2 mg/dL (8.5-10.1); Carbon Dioxide 23.3 mMol/L (20.0-31.0); Chloride 106 mMol/L (98-107); Creatinine (Component) 0.6 mg/dL (0.6-1.3); Estimated Creatinine Clearance 147.9 mL/min (>60); Globulin 2.9 gm/dL (2.3-3.5); Glucose 109 mg/dL (74-106); Magnesium 1.8 mg/dL (1.6-2.6); Osmolality,Calculated 279 (275-295); Phosphorous 3.5 mg/dL (2.4-5.1); Potassium 4.4 mMol/L (3.4-5.1); Sodium 141 mMol/L (136-145); Total Protein 7.1 gm/dL (5.7-8.2); eGFR > 60 See Note
[2025-04-12 07:07] VITALS: PULSE 103; RESP 18; RESP 95
[2025-04-12 07:44] VITALS: BP 125/75; PULSE 68; RESP 17; TEMP 36.4; O2SAT 94
[2025-04-12] MEDS: HYDROmorphone INJ 2 MG/ML VIAL 1 MG IVP (07:52)
[2025-04-12] MEDS: DOCUSATE SOD 100 MG CAPSULE PO (08:29)
[2025-04-12 12:00] VITALS: BP 111/68; PULSE 85; RESP 18; TEMP 36.3; O2SAT 96
[2025-04-12] MEDS: HYDROcodone/APAP 5/325 TABLET 1 TAB PO (13:38)
[2025-04-12 14:41] LABS: C-Reactive Protein 6.4 mg/dL (0.0-0.9)
--- NOTE | 2025-04-12 15:12 | ESDS_ITS ---
Planned Discharge Date 04/12/25 DS: Providers Provider Date of admission: 04/08/25 22:52 Primary care physician: Physician No Primary/Family Admitting Provider: Munir Ames MD Attending Provider on Admission: Munir Ames MD Consults: 04/09/25 08:30 Consult to Gastroenterology Routine Comment: Consulting Provider: Major River 04/10/25 14:31 Consult to General Surgery Stat Comment: Pancreatitis due to cholelithiasis Consulting Provider: Raj Oliveira Attending Provider on DC: Pamela Moyer Discharging Provider: Pamela Moyer Anticipated date of discharge: 04/12/25 DS: Diagnosis Problem List Completed Was Problem List Reviewed/Reconciled?: Yes Hospital Course Hospital Course Hospital course: Summary: Patient is a 34 year old female with past medical history of biliary dyskinesia, GERD, and acute pancreatitis who presented to the ED 04/08 for sharp epigastric pain with radiation to her back and was admitted overnight for the management of gallstone pancreatitis, now s/p cholecystectomy (04/11/2025) by Dr. Oliveira. ED Course: Patient originally presented to the ED 04/08 with chief complaint of sharp epigastric pain radiating to the back. Patient endorsed experiecing a similar episode a couple of months ago. Patient endorsed nausea, but denied vomiting and diarrhea. Patient denied flank pain and dysuria. Patient denied fever or chills. CTAP demonstrated findings consistent with acute pancreatitis and possible cholelithiasis. Abdominal ultrasound demonstrated prominent pancreatic head and no cholelithiasis. Pertinent labs include: Lipase 4125 AST 549 ALT 511 Alk Phos 205 TBili 2.3. Treatment provided includes: Morphine 4 mg IVPx2 for pain management and Zofran 4 mg IVPx1 for nausea. Hospital Course: Patient was admitted overnight for the management of gallstone pancreatitis. MRCP demonstrated findings consistent with cholelithiasis. Gastroenterology, Dr. Knott, and general surgery, Dr. Oliveira, were consulted. Patient underwent laparoscopic cholecystectomy with Dr. Oliveira without complication on 04/11. Patient acknowledged improvement in her pain and had more than one bowel movement after surgery. Patient was able to tolerate a low fat diet. Pertinent labs include: AST 79 ALT 198 Alk Phos 188 TBili 0.2 CRP 10. Treatment provided includes: LR 1L for fluid resuscitation, Bisacodyl 10 mg PO x1 and Docusate 100 mg BID for bowel regimen, Zofran 4 mg IVP for nausea, and Pantroprazole 40 mg IVP QD for GI prophylaxis. Per general surgery, Dr. Oliveira, and per gastroenterology, Dr. Knott, patient is cleared for discharge. Per gastroenterology, Dr. Knott, patient to follow-up outpatient 2-4 weeks after discharge. Patient is prescribe [place] 5 TID PRN 10 tablets for pain management. Patient to continue home medication as prescribed. Patient is stable and progressing back to baseline. Instructions: -Please continue all medication as prescribed -Hydrocodone-Acetaminophen 5-300 mg up to three times a day for pain from cholecystectomy and resolving pancreatitis -Follow up on referrals --Please follow up with your primary care provider within one week of discharge -If your symptoms worsen,please seek immediate medical attention and return to your nearest emergency room -If you do not have a primary care provider, you may follow up at the [facility] at [address] [place] [address] [place] [address], [place] [address], #s/p cholecystectomy (04/11/2025) #Acute Pancreatitis, resolved. #Gallstone Pancreatitis, resolved. #History of Idiopathic Acute Pancreatitis 01/2025 #Elevated liver enzymes #Hyperbilirubinemia, resolved #Hypophosphatemia, resolved #Hypomagnesemia, resolved #Hyperglycemia, resolved #GERD #History of gastric ulcer Case reviewed with attending Dr. Hernandez and senior resident Dr. Carey. Sandy Cruz MS-4 - The patient's plan was discussed with attending Dr. David Carey MD PGY2 Internal Medicine Time Spent with Patient Time attestation: Total time spent providing and/or coordinating discharge services: Time spent: Greater than 30 minutes Exam Vital Signs Temp Pulse Resp BP Pulse Ox O2 Del Method O2 Flow Rate 97.4 F 85 18 111/68 96 Room Air 2 04/12/25 12:00 04/12/25 12:00 04/12/25 12:00 04/12/25 12:00 04/12/25 12:00 04/12/25 04:00 04/11/25 15:20 Narrative Exam General Appearance: Alert & Oriented to person, place, time, and condition; well-nourished female who is lying in bed in no acute distress. HEENT: Skull symmetrical and atraumatic. Conjunctivae pink and moist. Pupils equal, round, reactive to light and accommodation (PERRL). External ear without lesion or discharge. Straight, nares patient, mucosa pink, no discharge. No thyroid nodule appreciated. No cervical lymphadenopathy. Cardio: Normal Rate and Rhythm with S1 and S2 heart sounds. No murmurs or extra heart sounds auscultated. No bruits on carotid auscultation. No peripheral edema or cyanosis. Lungs: Symmetric with good expansion. Chest and back non-tender. Breath sounds vesicular without crackles, wheezing or rhonchi Abdomen: Mild tenderness in the epigastric region s/p laparoscopic cholecystectomy, Non-distended, Normal Reactive Bowel Sounds Neuro: Alert, cooperative, oriented to person, place, time, and condition. Speech clear. CN grossly intact. Upper motor strength 5/5 and Lower motor strength 5/5. Sensation intact. Discharge Plan Plan Patient Disposition: HOME (Self Care) Patient condition on transfer: Stable Care Plan Goals: Instructions: -Please continue all medication as prescribed -Hydrocodone-Acetaminophen 5-300 mg up to three times a day for pain from cholecystectomy and resolving pancreatitis --Please follow up with your primary care provider within one week of discharge -If your symptoms worsen,please seek immediate medical attention and return to your nearest emergency room -If you do not have a primary care provider, you may follow up at the [facility] at [address], [place] [address], Instrucciones: - Contin?e con todos los medicamentos seg?n lo prescrito. - [place]-Acetaminof?n 5-300 mg hasta erica veces al d?a para el dolor causado por la colecistectom?a y la resoluci?n de la pancreatitis. - Consulte con link m?dico de cabecera dentro de elijah semana despu?s del monserrat. - Si aston s?ntomas empeoran, busque atenci?n m?dica inmediata y regrese a la kaylan de emergencias m?s cercana. - Si no cuenta con un m?dico de cabecera, puede consultar con link m?dico de cabecera en el [facility], ubicado en [address], [address], [place] [address], tel?fono [facility] CON DR OLIVEIRA LANEY [place] DARY[place] [phone] SALCIDO LANEY [place] [phone]. Prescriptions/Referrals Prescriptions/Med Rec: New hydrocodone-acetaminophen 5-300 mg tablet 1 tab PO Q8H MDD no more than three times a day PRN (Reason: pain) 3 Days Qty: 10 0RF Continued sucralfate 1 gram tablet 1 g PO BID ondansetron HCl 4 mg tablet 4 mg PO Q12H PRN (Reason: nausea and vomiting) pantoprazole 40 mg tablet,delayed release (DR/EC) 40 mg PO Q12H Referrals: Raj Oliveira MD [Physician] - No Primary/Family,Physician [Primary Care Provider] - Major River MD [Physician] - Patient/Caregiver Discharge Instructions Education Materials: Cholecystectomy, Preventing Surgical Site Infections Print Language: Jordanian Activity Restrictions/Additional Instructions: May shower . Avoid lifting, straining, pulling or pushing for 4 weeks. May take over the counter laxatives if no bowel movement in 2 days. Follow up with Dr. Oliveira in 2 weeks, call [phone] for an appointment. Continue low-fat diet for 1 week then advance diet as tolerated. Stand Alone Forms: Linette Award Info., Patient Portal Info Letter Discharge Order Discharge Orders: Discharge (Routine); Ordered 04/12/25 Ordered By: Adore Carey Quality Discharge Quality Measures VTE prophylaxis MD Attestestation MD Attestation I have examined the patient, reviewed labs and imaging findings, discussed the case with the resident(s), and reviewed entered orders. I agree with the plan of care as outlined in this note. Time Spent: [address] David MD
--- NOTE | 2025-04-12 15:35 | PD.SURPROG ---
Documentation for date of: 04/12/25 Subjective Subjective Narrative: Patient is seen and examined. Her pain is improving. She is tolerating diet without nausea or vomiting Exam Vital Signs Temp Pulse Resp BP Pulse Ox O2 Del Method O2 Flow Rate 97.4 F 85 18 111/68 96 Room Air 2 04/12/25 12:00 04/12/25 12:00 04/12/25 12:00 04/12/25 12:00 04/12/25 12:00 04/12/25 04:00 04/11/25 15:20 Constitutional Constitutional: no acute distress Routine Abdominal Exam Comments: Abdomen is soft and nondistended. Incisions are clean, dry and intact. She has minimal epigastric incisional tenderness Assessment & Plan Assessment Additional comments: Postop day #1 status post laparoscopic cholecystectomy. Liver enzymes improving Plan Discharge home. PROCEDURES: Procedures Laparoscopic cholecystectomy with attempted intraoperative cholangiogram
[2025-04-12 16:00] VITALS: BP 120/64; PULSE 72; RESP 15; TEMP 36.2; O2SAT 96
--- NOTE | 2025-04-12 16:01 | PC.NURSE ---
Rounded with MD Oliveira per continue to DC pt. MD arriaza made aware as well per pt is also medically clear to dc.
[2025-04-16 06:47] LABS: ANA Screen, IFA NEGATIVE (NEGATIVE)
[2025-04-21 23:32] LABS: Immunoglobulin G Subclass 1 456 mg/dL (382-929); Immunoglobulin G Subclass 2 371 mg/dL (241-700); Immunoglobulin G Subclass 3 60 mg/dL (22-178); Immunoglobulin G Subclass 4 5.7 mg/dL (4-86)
[2025-04-23 10:58] LABS: Immunoglobulin G Total 909 mg/dL (600-1640)
== END 2025-04-12 17:18 | disposition home or self-care (01) | DRG 263 ==
LOC: SERX 22:30 → SERHOLD 22:54 → S3NX 04-09 00:07
PROVIDERS: Anesthesiology; Internal Medicine; Internal Medicine Gastroenterology; Physician Assistant Medical; Surgery; Admitting Provider Internal Medicine; Emergency Provider Emergency Medicine; Visit Provider Internal Medicine
PROC: 0FT44ZZ Resection of Gallbladder, Percutaneous Endoscopic Approach (ICD-10-PCS; CPT 47562; principal; 2025-04-11 15:45)
DX: K85.10 Biliary acute pancreatitis without necrosis or infection (principal); K82.8 Other specified diseases of gallbladder; K76.9 Liver disease, unspecified; R73.9 Hyperglycemia, unspecified; E83.39 Other disorders of phosphorus metabolism; E83.42 Hypomagnesemia; K21.9 Gastro-esophageal reflux disease without esophagitis; K80.10 Calculus of gallbladder with chronic cholecystitis without obstruction; Z87.11 Personal history of peptic ulcer disease; K76.0 Fatty (change of) liver, not elsewhere classified
CPT/HCPCS: 36415; 74177; 74181; 74300; 76705; 80053; 80061; 80320; 81001; 82247; 82248; 82784; 82787; 83605; 83615; 83690; 83735; 84100; 84703; 85025; 86038; 86140; 96361; 96374; 96375; 96376; 99284; A4217; A4649; J0131; J0694; J1100; J1171; J2270; J2405; J2470; J2704; J2765; J3010; J3475; J3490; J7120; J7999; Q9967; A9270; G0480

== ENCOUNTER 2025-05-03 15:10 | Outpatient (AMB) | payer MEDICAID, SELFPAY ==
[2025-05-03 15:36] VITALS: BP 104/70; PULSE 77; RESP 17; TEMP 36.5; O2SAT 97; BMI 40.9
--- NOTE | 2025-05-03 15:36 | PD.RESCLINIC ---
Vital Signs 05/03/25 15:36 Height 1.6 m Height Method Stated Weight 104.837 kg Weight Measurement Method Standing Scale BMI 40.9 BP 104/70 Blood Pressure Source Automatic Cuff Blood Pressure Location Right Upper Arm Position Sitting Respiration 17 Pulse 77 Pulse Source Monitor Temp 97.7 F Temp Source Temporal Artery Scan Pulse Oximetry (%) 97 Oxygen Delivery Method Room Air Allergies/Meds Allergies & Medications Allergies No Known Allergies Allergy (Verified 05/03/25 15:37) Medication Reconciliation ondansetron HCl 4 mg tablet 4 mg PO Q12H PRN nausea and vomiting 01/26/25 [History Confirmed 05/03/25] sucralfate 1 gram tablet 1 g PO BID 01/26/25 [History Confirmed 05/03/25] dicyclomine 10 mg capsule 10 mg PO QID #120 caps 05/03/25 [Rx] pantoprazole 40 mg tablet,delayed release 40 mg PO Q12H #30 tabs 05/03/25 [Rx] MA Intake Visit Data Collection New Patient or Established: Established Patient (seen at [facility] within 3 years) Seen by Clinical Staff ONLY (RN/LEONEL): No Reason for Visit:: FOLLOW UP Pain Present Currently: Yes Pain Location: Abdomen Pain scale:: 5 Pain Scale Used: Friedman-Fields/Russ Language: PINKY SINGH / LEONEL [employer] Required: Yes PCP or OBGYN visit in last 3 months: Yes Date of Last PCP or OBGYN visit: 04/12/25 Hx Now: No Date of Last Menstrual Period: 04/11/25 Do You Feel Safe at Home: Yes Authorities Contacted: N/A Smoking Status Smoking Status: Never smoker Immunization / Flu Flu Vaccine in the Last 12 Months: No Flu Vaccine Exclusion Criteria: No Exclusion Criteria Past Medical History Past Medical History NEUROLOGIC: Negative Neurological Disorders, Cerebrovascular Accident, Transient Ischemic Attacks (TIA), Dementia, Alzheimer's Disease, Parkinson's Disease, Brain Tumor, Meningitis, Seizures, Epilepsy, Multiple Sclerosis, Cerebral Palsy, Amyotrophic Lateral Sclerosis (ALS/Sandy Gehrig's), Guillain-[place] Syndrome, Spina Bifida, Paralysis, Peripheral Neuropathy, Honeycutt's Palsy, Subdural Hematoma, Migraine, Head Trauma, Spinal Cord Injury or Traumatic Brain Injury CARDIAC: Positive Hypotension; Negative Cardiac Disorders, Myocardial Infarction, Cardiac Arrhythmia, Atrial Fibrillation, Angina, Heart Murmur, Coronary Artery Disease, Atherosclerotic Heart Disease, Peripheral Vascular Disease, Hypercholesterolemia, Aneurysm, Congestive Heart Failure, Congenital Heart Disease, Valvular Heart Disease, Rheumatic Fever, Cardiomyopathy, Pericarditis, Cellulitis, Deep Vein Thrombosis, Hypertension or Varicose Veins RESPIRATORY: Negative Chronic Obstructive Pulmonary Disease (COPD), Asthma, Bronchitis, Emphysema, Pneumonia, Pulmonary Fibrosis, Cystic Fibrosis, Tuberculosis, Pulmonary Embolism, Pulmonary Edema or Sleep Apnea GASTROINTESTINAL: Positive Pancreatitis, Gastrointestinal Bleed (d/t hemorroids), Ulcer (sx in 2013), Hiatal Hernia, Hemorrhoids and Obesity; Negative Gastrointestinal Disorders, Hepatitis, Cirrhosis, Celiac Disease, Gall Bladder Disease, Esophageal Varices, Lee's Esophagus, Colitis, Ulcerative Colitis, Diverticulitis, Diverticulosis, Colorectal Cancer, Crohn's Disease or Gastroesophageal Reflux Disease GENITOURINARY: Negative Genitourinary Disorders, Renal Disease, Kidney Stones, Polycystic Kidney Disease, Neurogenic Bladder, Inguinal Hernia, Dialysis or Prostate Cancer REPRODUCTIVE: Positive Previous Pregnancies (2 pregnancies); Negative Breast Cancer, Endometriosis, Genital Herpes, Gonorrhea, Pelvic Inflammatory Disease, Syphilis, Testicular Cancer or Uterine Prolapse MUSCULOSKELETAL: Positive Degenerative Disk Disease; Negative Muscular Dystrophy, Myasthenia Gravis, Marfan's Syndrome, Bone Cancer, Arthritis, Rheumatoid Arthritis, Osteoporosis, Gout, Scoliosis, Carpal Tunnel Syndrome, Fibromyalgia, Fractures, Degenerative Joint Disease, Osteomyelitis or Poliovirus ENT: Negative Cataracts, Glaucoma, Blind, Retinal Detachment, Macular Degeneration, Ear Infection, Deafness, Head Trauma or Eye Prosthesis ENDOCRINE: Negative Endocrine Disorders, Diabetes Mellitus Type 1, Diabetes Mellitus Type 2, Hypoglycemia, [place]'s Syndrome, Héctor's Disease, Hyperthyroidism, Hypothyroidism, Parathyroid Disease, Pituitary Disease, Systemic Lupus Erythematosus, Syndrome of Inappropriate Antidiuretic Hormone (SIADH), Adrenal Disease or Graves' Disease HEMATOLOGIC: Positive Anemia; Negative Blood Disorders, Leukemia, Hemophilia, Thalassemia, Sickle Cell Disease or Clotting Problems PSYCHO/SOCIAL: Negative Psychiatric Problems, Schizophrenia, Recreational Drug Use, Bipolar Disorder, Depression, Anxiety, Behavior Problems, Self-Mutilation, Attention Deficit Disorder, Attention Deficit Hyperactivity Disorder, Depression, Post Traumatic Stress Disorder or Eating Disorder OTHER HISTORY: Positive Hospitalization; Negative Down Syndrome, Autism, Developmental Delay, Shingles, Falls, Blood Transfusions, Blood Transfusion Reaction, Anesthesia Reactions, Organ Transplant, Chemotherapy, Radiation Therapy, Hyperbaric Therapy, MRSA, VRSA, Vancomycin-Resistant Enterococci, Human Immunodeficiency Virus (HIV), Chicken Pox, Measles, Mumps, Rubella (Greek Measles), Pertussis, Clostridium Difficile, Cancer, Breast Cancer, Cervical Cancer, Colorectal Cancer, Lung Cancer, Ovarian Cancer, Prostate Cancer or Testicular Cancer Family History FAMILY HISTORY: Negative Family Psychiatric Problems, Family Respiratory Disorders, Family Cardiac Disorders, Family Gastrointestinal Problems, Family Cancer, Family Surgery or Family Anesthesia Reaction Surgical History SURGICAL: Positive Abdominal Surgery; Negative Cardiac Surgery, Open Heart Surgery, Coronary Artery Bypass Graft, Valve Replacement, Vascular Surgery, Coronary Stent, Cardiac Catheterization, Pacemaker, Angiogram, Auto Implanted Cardiovert Defib, Carotid Endarterectomy, Endocrine Surgery, Thyroidectomy, Ear Surgery, Tympanostomy Tube, Eye Surgery, Nose Surgery, Oral Surgery, Tonsillectomy, Adenoidectomy, Cochlear Implant, Corneal Transplant, Throat Surgery, Tracheostomy, Gastric Bypass Surgery, Gastrostomy, Bowel Surgery, Nephrectomy, Transurethral Resection, Joint Replacement, Amputation, Open Reduction Internal Fixation, Arthroscopy, Neurologic Surgery, Brain Shunt, Mastectomy, Lumpectomy, Hysterectomy, Tubal Ligation, Section or Organ Transplant Social History SMOKING STATUS: Smoking status: Never smoker SECOND HAND EXPOSURE: second hand exposure: No ALCOHOL: Alcohol Intake: Never HOUSING: Housing: House LIVES WITH: Lives With: Family Patient Portal Questionaires PHQ-9 PHQ-2 Over the last 2 weeks, how often have you been bothered by any of the following problems? 1. Little interest or pleasure in doing things: not at all 2. Feeling down, depressed, or hopeless: not at all Total score: 0 PHQ-9 3. Trouble falling or staying asleep, or sleeping too much: Not at all 4. Feeling tired or having little energy: Not at all 5. Poor appetite or overeating: Not at all 6. Feeling bad about yourself - or that you are a failure or have let yourself or your family down: Not at all 7. Trouble concentrating on things, such as reading the newspaper or watching television: Not at all 8. Moving or speaking so slowly that other people could have noticed? - Or the opposite - being so fidgety or restless that you have been moving around a lot more than usual: not at all 9. Thoughts that you would be better off or of hurting yourself in some way: Not at all Total score: 0 If you checked off any problems, how difficult have these problems made it for you to do your work, take care of things at home, or get along with other people?: not difficult at all Source: Developed by Drs. Reji Veras, Loren Arreaga, Hi Draden and colleagues, with an educational ilia from [employer]. Depression screen completed yes Social History Living Situation History Marital Status: Unknown Lives With: Family Housing: House Tobacco History Smoking Status: Never smoker Second Hand Smoke Exposure: No Alcohol History Alcohol Intake: Never Domestic Abuse History Do You Feel Safe at Home: Yes Review of Systems Report any current symptoms Only answer those that you have currently: Past Medical History Past Medical History Have you ever been diagnosed with any of the following: Neurological Problems Cerebrovascular Accident (CVA): No Transient Ischemic Attacks (TIA): No Dementia: No Alzheimer's Disease: No Parkinson's Disease: No Brain Tumor: No Meningitis: No Seizures: No Epilepsy: No Multiple Sclerosis: No Cerebral Palsy: No Amyotrophic Lateral Sclerosis (ALS/Sandy Gehrig's): No Guillain-[place] Syndrome: No Spina Bifida: No Paralysis: No Peripheral Neuropathy: No Honeycutt's Palsy: No Subdural Hematoma: No Migraine: No Head Trauma: No Spinal Cord Injury: No Traumatic Brain Injury: No Cardiology Problems Myocardial Infarction: No Cardiac Arrhythmia: No Atrial Fibrillation: No Angina: No Heart Murmur: No Coronary Artery Disease: No Atherosclerotic Heart Disease: No Peripheral Vascular Disease: No Hypercholesterolemia: No Aneurysm: No Congestive Heart Failure: No Congenital Heart Disease: No Valvular Heart Disease: No Rheumatic Fever: No Cardiomyopathy: No Pericarditis: No Cellulitis: No Deep Vein Thrombosis: No Hypertension: No Hypotension: Yes Varicose Veins: No Respiratory Problems Chronic Obstructive Pulmonary Disease (COPD): No Asthma: No Bronchitis: No Emphysema: No Pneumonia: No Pulmonary Fibrosis: No Tuberculosis: No Pulmonary Embolism: No Pulmonary Edema: No Sleep Apnea: No Stomache/Intestinal Problems Hepatitis: No Cirrhosis: No Pancreatitis: Yes Celiac Disease: No Gall Bladder Disease: No Gastrointestinal Bleed: Yes (d/t hemorroids) Esophageal Varices: No Lee's Esophagus: No Colitis: No Ulcerative Colitis: No Diverticulitis: No Diverticulosis: No Ulcer: Yes (sx in 2013) Colorectal Cancer: No Crohn's Disease: No Hiatal Hernia: Yes Hemorrhoids: Yes Gastroesophageal Reflux Disease: No Obesity: Yes Genital/Urinary Problems Renal Disease: No Kidney Stones: No Polycystic Kidney Disease: No Neurogenic Bladder: No Inguinal Hernia: No Dialysis: No Reproductive Problems Breast Cancer: No Endometriosis: No Genital Herpes: No Gonorrhea: No Pelvic Inflammatory Disease: No Previous Pregnancies: Yes (2 pregnancies) Syphilis: No Uterine Prolapse: No Musculoskeletal Problems Muscular Dystrophy: No Myasthenia Gravis: No Marfan's Syndrome: No Bone Cancer: No Arthritis: No Rheumatoid Arthritis: No Osteoporosis: No Degenerative Disk Disease: Yes Gout: No Scoliosis: No Carpal Tunnel Syndrome: No Fibromyalgia: No Fractures: No Degenerative Joint Disease: No Osteomyelitis: No Poliovirus: No Head,Eye,Nose,Throat Problems Cataracts: No Glaucoma: No Blind: No Retinal Detachment: No Macular Degeneration: No Chronic Ear Infections: No Deafness: No Eye Prosthesis: No Endocrine Problems Diabetes Mellitus Type 1: No Diabetes Mellitus Type 2: No Hypoglycemia: No Darlin's Syndrome: No Héctor's Disease: No Hyperthyroidism: No Hypothyroidism: No Parathyroid Disease: No Pituitary Disease: No Systemic Lupus Erythematosus: No Syndrome of Inappropriate Antidiuretic Hormone: No Adrenal Disease: No Graves' Disease: No Blood Problems Anemia: Yes Leukemia: No Hemophilia: No Thalassemia: No Sickle Cell Disease: No Clotting Problems: No Psychologic Problems Schizophrenia: No Recreational Drug Use: No Bipolar Disorder: No Depression: No Anxiety: No Behavior Problems: No Self-Mutilation: No Attention Deficit Disorder: No Attention Deficit Hyperactivity Disorder: No Depression: No Post Traumatic Stress Disorder: No Eating Disorder: No Other Problems Hospitalization: Yes Down Syndrome: No Autism: No Developmental Delay: No Shingles: No Falls: No Blood Transfusions: No Blood Transfusion Reaction: No Anesthesia Reactions: No Organ Transplant: No Chemotherapy: No Radiation Therapy: No Hyperbaric Therapy: No MRSA: No VRSA: No Vancomycin-Resistant Enterococci: No Human Immunodeficiency Virus (HIV): No Chicken Pox: No Measles: No Mumps: No Rubella (Greek Measles): No Pertussis: No Clostridium Difficile: No Cancer: No Cervical Cancer: No Lung Cancer: No Ovarian Cancer: No Surgical History Carotid Endarterectomy: No Coronary Artery Bypass Graft: No Valve Replacement: No Hysterectomy: No Pacemaker: No Thyroidectomy: No History of Present Illness HPI Narrative 34-year-old female with past medical history of morbid obesity, biliary dyskinesia status post laproscopic cholecystectomy, gastric ulcer and symptomatic hypotension during presenting to the [facility] for follow-up after hospital discharge for gallstone pancreatitis s/p lap tomas. Patient presents today with generalized abdominal pain along with lower back pain. Patient was seen by general surgeon who completed laparoscopic cholecystectomy about 1 week ago for follow-up and monitoring of incision/trocar sites. Per patient, the appointment was pretty unremarkable and there was no concern for infection. Patient was also told to follow-up with GI once she was discharged; ever, she has not been able to seen gastroenterology. She does have an appointment coming up on 05/10 with gastroenterology in [place]. Patient denies having any concerning symptoms such as severe abdominal pain, melena, hematochezia, vomiting but does state that about 2 weeks ago she had diarrhea which has now resolved. Objective/Exam Narrative Physical exam: Physical Exam: GENERAL: Awake, answering questions appropriately, appears stated age, obese HEENT: NC/AT. Moist mucosa. PERRLA/EOMI. CARDIO: Heart RRR, no obvious murmurs, no JVD. PULM: No coughing or visible SOB. Lungs CTA B/L. GI: Abdomen soft, mild tenderness on RLQ without guarding or rebound tenderness. Borborygmi apparent SKIN/MSK/EXT: No wounds/discoloration/rashes/edema/amputations noted. NEURO: Oriented x3, Moves extremities x4, no focal neurological deficits noted. Assessment & Plan Diagnosis / Problem List (1) Morbid obesity: Status: Acute Assessment & Plan: Patient presenting with BMI of 40.9 Counciled on diet and exercise Patient will follow-up in two weeks with repeat labs and annual physical Plan: Ordered CBC w/diff, CMP, Liver panel and A1c Will introduce idea possible GLP-1 treatment; however, awaiting GI doctor recommendations and complete resolution of abdominal symptoms (2) Peptic ulcer disease: Status: Acute Assessment & Plan: Known history of PUD on omeprazole 40mg qday and sucralfate Patient denies any PUD symptoms at this time Plan: Refilled pantoprazole 40 mg Follow-up with GI specialist on 05/10 Dicyclomine 10 mg 4 times daily as needed for suspected underlying IBS (3) Biliary dyskinesia: Status: Acute Assessment & Plan: During workup in the hospital, found to have low EF on HIDA Abnormal gallbladder ejection fraction, 17%, normal greater than 35% Status post laparoscopic cholecystectomy on 04/11 Further imaging studies were negative for any common bile duct stone Patient had follow-up appointment after surgery about 1 week ago without any concerning findings Plan: Resolved secondary to laparoscopic cholecystectomy Orders: Orders Lipid Panel Today E66.01 - Morbid (severe) obesity due to excess calories Comprehensive Metabolic Panel Today E66.01 - Morbid (severe) obesity due to excess calories CBC Today E66.01 - Morbid (severe) obesity due to excess calories Ambulatory Hemoglobin A1C Today E66.01 - Morbid (severe) obesity due to excess calories Additional Assessment Attending note: I, Irving Smith MD, attest that I was physically present for the garcia portions of the service and evaluated the patient with the resident and I reviewed and discussed the case with the resident and agree with the resident's findings and plans of care as documented above. Irving Smith MD Office Procedures [facility] Level of Care Nursing/Assessment Patient Status: Established Patient Nursing Assessment/Reassessment: Medication Reconciliation, Update PMH in EMR and Vital Signs Coordination of Care: Complex Care and Chronic Disease 1-5, Consent,records obtained, informed consent, Education Simp Pt/Fam and Staff clarify orders Established Patient Charge Established Patient Point Assignment: 85 Established Patient Point Charge: EP Level 3 (80-115) TB Screening LTBI Screening: Has patient traveled, was born, or resided for at least 1 month, or frequent border crossing into a country with an elevated TB rate: No Immunosuppression, current or planned (HIV, organ transplant, treated with biologic agents, steroids, or other immunosuppression medication): No Close contact to someone with infectious TB disease during lifetime: No Homelessness or incarceration, current or past: No TB testing indicated at this time (at least 1 yes above): No
== END 2025-05-03 16:07 | disposition home or self-care (01) ==
DX: R10.84 Generalized abdominal pain (principal); M54.50 Low back pain, unspecified; E66.01 Morbid (severe) obesity due to excess calories; Z68.41 Body mass index [BMI] 40.0-44.9, adult; K27.9 Peptic ulcer, site unspecified, unspecified as acute or chronic, without hemorrhage or perforation; K82.8 Other specified diseases of gallbladder; Z90.49 Acquired absence of other specified parts of digestive tract
CPT/HCPCS: 99213; G0463

== ENCOUNTER 2025-07-11 13:36 | Outpatient (AMB) | payer MEDICAID, SELFPAY ==
[2025-07-11 13:50] VITALS: BP 103/69; PULSE 88; RESP 16; TEMP 36.5; O2SAT 96; BMI 41.3
--- NOTE | 2025-07-11 13:50 | PD.RESCLINIC ---
Vital Signs 07/11/25 13:50 Height 1.6 m Height Method Stated Weight 105.857 kg Weight Measurement Method Standing Scale BMI 41.3 BP 103/69 Blood Pressure Source Automatic Cuff Blood Pressure Location Right Upper Arm Position Sitting Respiration 16 Pulse 88 Pulse Source Monitor Temp 97.7 F Temp Source Temporal Artery Scan Pulse Oximetry (%) 96 Oxygen Delivery Method Room Air Allergies/Meds Allergies & Medications Allergies No Known Allergies Allergy (Verified 07/11/25 13:51) Medication Reconciliation ondansetron HCl 4 mg tablet 4 mg PO Q12H PRN nausea and vomiting 01/26/25 [History Confirmed 07/11/25] sucralfate 1 gram tablet 1 g PO BID 01/26/25 [History Confirmed 07/11/25] dicyclomine 10 mg capsule 10 mg PO QID #120 caps 05/03/25 [Rx Confirmed 07/11/25] omeprazole 10 mg capsule,delayed release 10 mg PO QDAY 07/11/25 [History Confirmed 07/11/25] MA Intake Visit Data Collection New Patient or Established: Established Patient (seen at [facility] within 3 years) Seen by Clinical Staff ONLY (RN/MA): No Pain Present Currently: No Pain scale:: 0 Pain Scale Used: Friedman-Fields/Numerical Brim Stretcher Required: Yes PCP or OBGYN visit in last 3 months: Yes Date of Last PCP or OBGYN visit: 05/03/25 Hx Now: No Do You Feel Safe at Home: Yes Authorities Contacted: N/A Smoking Status Smoking Status: Never smoker Immunization / Flu Flu Vaccine in the Last 12 Months: No Flu Vaccine Exclusion Criteria: No Exclusion Criteria Past Medical History Past Medical History NEUROLOGIC: Negative Neurological Disorders, Cerebrovascular Accident, Transient Ischemic Attacks (TIA), Dementia, Alzheimer's Disease, Parkinson's Disease, Brain Tumor, Meningitis, Seizures, Epilepsy, Multiple Sclerosis, Cerebral Palsy, Amyotrophic Lateral Sclerosis (ALS/Sandy Gehrig's), Guillain-[place] Syndrome, Spina Bifida, Paralysis, Peripheral Neuropathy, Honeycutt's Palsy, Subdural Hematoma, Migraine, Head Trauma, Spinal Cord Injury or Traumatic Brain Injury CARDIAC: Positive Hypotension; Negative Cardiac Disorders, Myocardial Infarction, Cardiac Arrhythmia, Atrial Fibrillation, Angina, Heart Murmur, Coronary Artery Disease, Atherosclerotic Heart Disease, Peripheral Vascular Disease, Hypercholesterolemia, Aneurysm, Congestive Heart Failure, Congenital Heart Disease, Valvular Heart Disease, Rheumatic Fever, Cardiomyopathy, Pericarditis, Cellulitis, Deep Vein Thrombosis, Hypertension or Varicose Veins RESPIRATORY: Negative Chronic Obstructive Pulmonary Disease (COPD), Asthma, Bronchitis, Emphysema, Pneumonia, Pulmonary Fibrosis, Cystic Fibrosis, Tuberculosis, Pulmonary Embolism, Pulmonary Edema or Sleep Apnea GASTROINTESTINAL: Positive Pancreatitis, Gastrointestinal Bleed (d/t hemorroids), Ulcer (sx in 2014), Hiatal Hernia, Hemorrhoids and Obesity; Negative Gastrointestinal Disorders, Hepatitis, Cirrhosis, Celiac Disease, Gall Bladder Disease, Esophageal Varices, Lee's Esophagus, Colitis, Ulcerative Colitis, Diverticulitis, Diverticulosis, Colorectal Cancer, Crohn's Disease or Gastroesophageal Reflux Disease GENITOURINARY: Negative Genitourinary Disorders, Renal Disease, Kidney Stones, Polycystic Kidney Disease, Neurogenic Bladder, Inguinal Hernia, Dialysis or Prostate Cancer REPRODUCTIVE: Positive Previous Pregnancies (2 pregnancies); Negative Breast Cancer, Endometriosis, Genital Herpes, Gonorrhea, Pelvic Inflammatory Disease, Syphilis, Testicular Cancer or Uterine Prolapse MUSCULOSKELETAL: Positive Degenerative Disk Disease; Negative Muscular Dystrophy, Myasthenia Gravis, Marfan's Syndrome, Bone Cancer, Arthritis, Rheumatoid Arthritis, Osteoporosis, Gout, Scoliosis, Carpal Tunnel Syndrome, Fibromyalgia, Fractures, Degenerative Joint Disease, Osteomyelitis or Poliovirus ENT: Negative Cataracts, Glaucoma, Blind, Retinal Detachment, Macular Degeneration, Ear Infection, Deafness, Head Trauma or Eye Prosthesis ENDOCRINE: Negative Endocrine Disorders, Diabetes Mellitus Type 1, Diabetes Mellitus Type 2, Hypoglycemia, Darlin's Syndrome, [place]'s Disease, Hyperthyroidism, Hypothyroidism, Parathyroid Disease, Pituitary Disease, Systemic Lupus Erythematosus, Syndrome of Inappropriate Antidiuretic Hormone (SIADH), Adrenal Disease or Graves' Disease HEMATOLOGIC: Positive Anemia; Negative Blood Disorders, Leukemia, Hemophilia, Thalassemia, Sickle Cell Disease or Clotting Problems PSYCHO/SOCIAL: Negative Psychiatric Problems, Schizophrenia, Recreational Drug Use, Bipolar Disorder, Depression, Anxiety, Behavior Problems, Self-Mutilation, Attention Deficit Disorder, Attention Deficit Hyperactivity Disorder, Depression, Post Traumatic Stress Disorder or Eating Disorder OTHER HISTORY: Positive Hospitalization; Negative Down Syndrome, Autism, Developmental Delay, Shingles, Falls, Blood Transfusions, Blood Transfusion Reaction, Anesthesia Reactions, Organ Transplant, Chemotherapy, Radiation Therapy, Hyperbaric Therapy, MRSA, VRSA, Vancomycin-Resistant Enterococci, Human Immunodeficiency Virus (HIV), Chicken Pox, Measles, Mumps, Rubella (Armenian Measles), Pertussis, Clostridium Difficile, Cancer, Breast Cancer, Cervical Cancer, Colorectal Cancer, Lung Cancer, Ovarian Cancer, Prostate Cancer or Testicular Cancer Family History FAMILY HISTORY: Negative Family Psychiatric Problems, Family Respiratory Disorders, Family Cardiac Disorders, Family Gastrointestinal Problems, Family Cancer, Family Surgery or Family Anesthesia Reaction Surgical History SURGICAL: Positive Abdominal Surgery; Negative Cardiac Surgery, Open Heart Surgery, Coronary Artery Bypass Graft, Valve Replacement, Vascular Surgery, Coronary Stent, Cardiac Catheterization, Pacemaker, Angiogram, Auto Implanted Cardiovert Defib, Carotid Endarterectomy, Endocrine Surgery, Thyroidectomy, Ear Surgery, Tympanostomy Tube, Eye Surgery, Nose Surgery, Oral Surgery, Tonsillectomy, Adenoidectomy, Cochlear Implant, Corneal Transplant, Throat Surgery, Tracheostomy, Gastric Bypass Surgery, Gastrostomy, Bowel Surgery, Nephrectomy, Transurethral Resection, Joint Replacement, Amputation, Open Reduction Internal Fixation, Arthroscopy, Neurologic Surgery, Brain Shunt, Mastectomy, Lumpectomy, Hysterectomy, Tubal Ligation, Section or Organ Transplant Social History SMOKING STATUS: Smoking status: Never smoker SECOND HAND EXPOSURE: second hand exposure: No ALCOHOL: Alcohol Intake: Never HOUSING: Housing: House LIVES WITH: Lives With: Family Patient Portal Questionaires PHQ-9 PHQ-2 Over the last 2 weeks, how often have you been bothered by any of the following problems? 1. Little interest or pleasure in doing things: not at all PHQ-9 3. Trouble falling or staying asleep, or sleeping too much: Not at all 4. Feeling tired or having little energy: Not at all 5. Poor appetite or overeating: Not at all 6. Feeling bad about yourself - or that you are a failure or have let yourself or your family down: Not at all 7. Trouble concentrating on things, such as reading the newspaper or watching television: Not at all 8. Moving or speaking so slowly that other people could have noticed? - Or the opposite - being so fidgety or restless that you have been moving around a lot more than usual: not at all 9. Thoughts that you would be better off or of hurting yourself in some way: Not at all If you checked off any problems, how difficult have these problems made it for you to do your work, take care of things at home, or get along with other people?: not difficult at all Source: Developed by Drs. Reji L. RitoLoren hercules, Hi Darden and colleagues, with an educational ilia from [employer]. Depression screen completed yes Social History Living Situation History Lives With: Family Housing: House Tobacco History Smoking Status: Never smoker Second Hand Smoke Exposure: No Alcohol History Alcohol Intake: Never Domestic Abuse History Do You Feel Safe at Home: Yes Review of Systems Report any current symptoms Only answer those that you have currently: Past Medical History Past Medical History Have you ever been diagnosed with any of the following: Neurological Problems Cerebrovascular Accident (CVA): No Transient Ischemic Attacks (TIA): No Dementia: No Alzheimer's Disease: No Parkinson's Disease: No Brain Tumor: No Meningitis: No Seizures: No Epilepsy: No Multiple Sclerosis: No Cerebral Palsy: No Amyotrophic Lateral Sclerosis (ALS/Sandy Gehrig's): No Guillain-[place] Syndrome: No Spina Bifida: No Paralysis: No Peripheral Neuropathy: No Honeycutt's Palsy: No Subdural Hematoma: No Migraine: No Head Trauma: No Spinal Cord Injury: No Traumatic Brain Injury: No Cardiology Problems Myocardial Infarction: No Cardiac Arrhythmia: No Atrial Fibrillation: No Angina: No Heart Murmur: No Coronary Artery Disease: No Atherosclerotic Heart Disease: No Peripheral Vascular Disease: No Hypercholesterolemia: No Aneurysm: No Congestive Heart Failure: No Congenital Heart Disease: No Valvular Heart Disease: No Rheumatic Fever: No Cardiomyopathy: No Pericarditis: No Cellulitis: No Deep Vein Thrombosis: No Hypertension: No Hypotension: Yes Varicose Veins: No Respiratory Problems Chronic Obstructive Pulmonary Disease (COPD): No Asthma: No Bronchitis: No Emphysema: No Pneumonia: No Pulmonary Fibrosis: No Tuberculosis: No Pulmonary Embolism: No Pulmonary Edema: No Sleep Apnea: No Stomache/Intestinal Problems Hepatitis: No Cirrhosis: No Pancreatitis: Yes Celiac Disease: No Gall Bladder Disease: No Gastrointestinal Bleed: Yes (d/t hemorroids) Esophageal Varices: No Lee's Esophagus: No Colitis: No Ulcerative Colitis: No Diverticulitis: No Diverticulosis: No Ulcer: Yes (sx in 2013) Colorectal Cancer: No Crohn's Disease: No Hiatal Hernia: Yes Hemorrhoids: Yes Gastroesophageal Reflux Disease: No Obesity: Yes Genital/Urinary Problems Renal Disease: No Kidney Stones: No Polycystic Kidney Disease: No Neurogenic Bladder: No Inguinal Hernia: No Dialysis: No Reproductive Problems Breast Cancer: No Endometriosis: No Genital Herpes: No Gonorrhea: No Pelvic Inflammatory Disease: No Previous Pregnancies: Yes (2 pregnancies) Syphilis: No Uterine Prolapse: No Musculoskeletal Problems Muscular Dystrophy: No Myasthenia Gravis: No Marfan's Syndrome: No Bone Cancer: No Arthritis: No Rheumatoid Arthritis: No Osteoporosis: No Degenerative Disk Disease: Yes Gout: No Scoliosis: No Carpal Tunnel Syndrome: No Fibromyalgia: No Fractures: No Degenerative Joint Disease: No Osteomyelitis: No Poliovirus: No Head,Eye,Nose,Throat Problems Cataracts: No Glaucoma: No Blind: No Retinal Detachment: No Macular Degeneration: No Chronic Ear Infections: No Deafness: No Eye Prosthesis: No Endocrine Problems Diabetes Mellitus Type 1: No Diabetes Mellitus Type 2: No Hypoglycemia: No [place]'s Syndrome: No [place]'s Disease: No Hyperthyroidism: No Hypothyroidism: No Parathyroid Disease: No Pituitary Disease: No Systemic Lupus Erythematosus: No Syndrome of Inappropriate Antidiuretic Hormone: No Adrenal Disease: No Graves' Disease: No Blood Problems Anemia: Yes Leukemia: No Hemophilia: No Thalassemia: No Sickle Cell Disease: No Clotting Problems: No Psychologic Problems Schizophrenia: No Recreational Drug Use: No Bipolar Disorder: No Depression: No Anxiety: No Behavior Problems: No Self-Mutilation: No Attention Deficit Disorder: No Attention Deficit Hyperactivity Disorder: No Depression: No Post Traumatic Stress Disorder: No Eating Disorder: No Other Problems Hospitalization: Yes Down Syndrome: No Autism: No Developmental Delay: No Shingles: No Falls: No Blood Transfusions: No Blood Transfusion Reaction: No Anesthesia Reactions: No Organ Transplant: No Chemotherapy: No Radiation Therapy: No Hyperbaric Therapy: No MRSA: No VRSA: No Vancomycin-Resistant Enterococci: No Human Immunodeficiency Virus (HIV): No Chicken Pox: No Measles: No Mumps: No Rubella (Armenian Measles): No Pertussis: No Clostridium Difficile: No Cancer: No Cervical Cancer: No Lung Cancer: No Ovarian Cancer: No Surgical History Carotid Endarterectomy: No Coronary Artery Bypass Graft: No Valve Replacement: No Hysterectomy: No Pacemaker: No Thyroidectomy: No History of Present Illness HPI Narrative 34-year-old female with past medical history of morbid obesity, biliary dyskinesia status post laproscopic cholecystectomy, gastric ulcer, gastritis, esophagitis seen recently on EGD and symptomatic hypotension during presenting to the [facility] for follow-up after she was seen by GI specialist in [place] for unspecific GI symptoms. EGD results showed some non-specific inflammation including Grade C esophagitis, gastritis. Patient's PPI dose has increased to twice a day with repeat EGD to be completed in 6 weeks. Patient also had some concerns regarding laproscopic incision site near umbilicus which she states turns dark after shower. She has been using an OTC ointment and states it looks better today. Objective/Exam Narrative Physical exam: Physical Exam: GENERAL: Awake, answering questions appropriately, appears stated age, morbidly obese HEENT: NC/AT. Moist mucosa. PERRLA/EOMI. CARDIO: Heart RRR, no obvious murmurs, no JVD. PULM: No coughing or visible SOB. Lungs CTA B/L. GI: Abdomen soft, mild tenderness on RLQ without guarding or rebound tenderness. Borborygmi apparent Laprascopic incision site is well healed without purulent discharge, erythema or other concerning findings SKIN/MSK/EXT: No wounds/discoloration/rashes/edema/amputations noted. NEURO: Oriented x3, Moves extremities x4, no focal neurological deficits noted. Assessment & Plan Diagnosis / Problem List (1) Morbid obesity: Status: Acute Assessment & Plan: BMI of 41.3, Patient's weight continues to increase Labs ordered from last visit will be completed in July follow-up Plan: Counselled on dietary modifications Patient will ask GI specialist if she is able to recieved GLP-1 medications since she does have history of pancreatitis (gallstone-related) s/p lap tomas Follow-up on labs ordered in April - patient still has a slip at home (2) Gastritis: Status: Acute Qualifiers: Gastritis type: unspecified gastritis Chronicity: chronic Gastritis bleeding: without bleeding Qualified Code(s): K29.50 - Unspecified chronic gastritis without bleeding Assessment & Plan: Patient seen by GI specialist in [place] Completed EGD which showed Grade C esophagitis, gastritis with biopsies Has scheduled follow-up in 6 weeks for repeat EGD if symptoms persist along with labs ordered by GI including stool studies Plan: If symptoms persist recommendation is for patient to obtain a colonoscopy Office Procedures [facility] Level of Care Nursing/Assessment Patient Status: Established Patient Nursing Assessment/Reassessment: Medication Reconciliation, Update PMH in EMR and Vital Signs Coordination of Care: Complex Care/Chronic Disease 5 or more, Education Complex Pt/Fam, Consent,records obtained, informed consent, Lab and Imaging orders, Results/Orders obtained and Staff clarify orders Established Patient Charge Established Patient Point Assignment: 120 Established Patient Point Charge: EP Level 4 (120-155) TB Screening LTBI Screening: Has patient traveled, was born, or resided for at least 1 month, or frequent border crossing into a country with an elevated TB rate: No Immunosuppression, current or planned (HIV, organ transplant, treated with biologic agents, steroids, or other immunosuppression medication): No Close contact to someone with infectious TB disease during lifetime: No Homelessness or incarceration, current or past: No TB testing indicated at this time (at least 1 yes above): No
== END 2025-07-11 14:16 | disposition home or self-care (01) ==
LOC: HODAHC 13:36
PROVIDERS: Supervising Provider Internal Medicine
DX: E66.01 Morbid (severe) obesity due to excess calories (principal); Z68.41 Body mass index [BMI] 40.0-44.9, adult; K29.50 Unspecified chronic gastritis without bleeding
CPT/HCPCS: 99214; G0463